=== PATIENT | male | born 1950 | race Caucasian/White ===

== ENCOUNTER → 2017-12-14 09:33 | Outpatient (CLI) | payer OTHER, SELFPAY ==
[2017-12-14 09:59] LABS: Add Manual Diff / Slide Review NO; Basophils Percent Auto 0.5 % (0-2); Eosinophils Percent Auto 1.3 % (2-4); Hematocrit 43.3 % (41-53); Hemoglobin 14.9 g/dL (13.5-17.5); Lymphocytes Percent Auto 25.2 % (25-40); Mean Corpuscular HGB Conc 34.5 % (30-36); Mean Corpuscular Hemoglobin 31.8 PG (26-34); Neutrophils Absolute Auto 3900 /uL (3000-5900); Platelet Count 163 X10^3/uL (150-400); Red Blood Cell Count 4.71 X10^6/uL (4.5-5.9); Red Cell Distribution Width 12.8 % (11.6-14.8); White Blood Cell Count 5.9 X10^3/uL (4.5-11.0)
[2017-12-14 10:28] LABS: Cholesterol 109 mg/dL (140-199); HDL Cholesterol 52 mg/dL (40-60); LDL Cholesterol Calculated 39 mg/dL (<100); Triglycerides 92 mg/dL (35-150)
[2017-12-14 10:45] LABS: Vitamin D 25 Hydroxy (D3) 39.7 ng/mL (30.0-100.0)
== END ==
PROVIDERS: PCP Family Medicine; Visit Provider Family Medicine
DX: F32.9 Major depressive disorder, single episode, unspecified (principal)
CPT/HCPCS: 36415; 80061; 82306; 85025; G0103

== ENCOUNTER → 2018-11-22 08:55 | Outpatient (CLI) | payer OTHER, SELFPAY ==
[2018-11-22 10:19] LABS: Add Manual Diff / Slide Review NO; Basophils Absolute Auto 0 /uL (0-100); Basophils Percent Auto 0.5 % (0-2); Eosinophils Absolute Auto 100 /uL (0-450); Eosinophils Percent Auto 1.6 % (2-4); Hematocrit 45.3 % (41-53); Hemoglobin 14.9 g/dL (13.5-17.5); Lymphocytes Absolute Auto 1600 /uL (1100-4500); Lymphocytes Percent Auto 27.7 % (25-40); Mean Corpuscular HGB Conc 32.9 % (30-36); Mean Corpuscular Hemoglobin 31.1 PG (26-34); Mean Corpuscular Volume 94.5 fL (80-100); Monocytes Absolute Auto 400 /uL (0-900); Monocytes Percent Auto 7.4 % (3-14); Neutrophils Absolute Auto 3600 /uL (1500-7000); Neutrophils Percent Auto 62.8 % (50-75); Platelet Count 177 X10^3/uL (150-400); Red Blood Cell Count 4.79 X10^6/uL (4.5-5.9); Red Cell Distribution Width 13.1 % (11.6-14.8); White Blood Cell Count 5.8 X10^3/uL (4.5-11.0)
[2018-11-22 11:14] LABS: Alanine Aminotransferase 32 IU/L (21-72); Albumin 4.3 g/dL (3.5-5.0); Albumin Globulin Ratio 1.6 (1.0-2.8); Alkaline Phosphatase 64 U/L (38-126); Aspartate Aminotransferase 34 IU/L (17-59); BUN Creatinine Ratio 16.4 (6-22); Bilirubin Total 0.5 mg/dL (0.2-1.3); Blood Urea Nitrogen 18 mg/dL (9-20); Calcium 9.5 mg/dL (8.4-10.2); Carbon Dioxide 27 mmol/L (22-32); Chloride 102 mmol/L (98-107); Cholesterol 115 mg/dL (140-199); Estimated Glomerular Filt Rate > 60.0 mL/min (>60); Globulin 2.7 g/dL (1.7-4.1); Glucose 106 mg/dL (80-110); HDL Cholesterol 45 mg/dL (40-60); HEMOLYSIS 17 (0-50); LDL Cholesterol Calculated 54 mg/dL (<100); Potassium 4.3 mmol/L (3.4-5.1); Sodium 139 mmol/L (137-145); Triglycerides 82 mg/dL (35-150)
[2018-11-22 11:30] LABS: Thyroid Stimulating Hormone 2.02 uIU/mL (0.47-4.68)
[2018-11-22 11:38] LABS: Prostate Specific Antigen Scrn 1.63 ng/mL (0.1-4.0)
== END ==
PROVIDERS: PCP Family Medicine; Visit Provider Family Medicine
DX: Z01.89 Encounter for other specified special examinations (principal); Z13.220 Encounter for screening for lipoid disorders; Z13.29 Encounter for screening for other suspected endocrine disorder; Z13.6 Encounter for screening for cardiovascular disorders
CPT/HCPCS: 36415; 80053; 80061; 84443; 85025; G0103

== ENCOUNTER → 2018-11-22 09:03 | Outpatient (CLI) | payer OTHER, SELFPAY | PROVIDERS: PCP Family Medicine; Visit Provider Family Medicine ==

== ENCOUNTER 2019-03-16 02:56 | Emergency (ER) | payer OTHER, SELFPAY ==
[2019-03-16 03:04] VITALS: BP 154/87; PULSE 74; RESP 16; TEMP 36.7; O2SAT 97; BMI 26.4
--- NOTE | 2019-03-16 03:47 | ED.EAR ---
HPI - Ear Problem General Chief complaint: Ear Stated complaint: part of hearing air stuck in left ear Time Seen by Provider: 03/16/19 03:10 Source: patient Mode of arrival: ambulatory Limitations: no limitations History of Present Illness HPI Narrative: Patient is a 68-year-old male who presents with foreign body in his left ear. He states that part of his hearing aid is in his left ear he thinks it has been there for the past couple of days. He and his daughter tried to get it out previously but were unsuccessful. Pain kept him up this evening unable to sleep. Complaint: ear pain Location: left ear Duration: constant Severity: moderate Relieving factors: nothing Exacerbating factors: nothing Related Data Previous Rx's Medication Instructions Recorded omeprazole 20 mg PO Q DAY #90 cap 06/14/18 ranitidine HCl [Zantac] 150 mg PO QDAY #90 tab 10/24/18 azithromycin 250 mg tablet See Rx Instructions PO .COMPLEX #6 03/09/19 tab Allergies Allergy/AdvReac Type Severity Reaction Status Date / Time codeine [CODEINE] Allergy Unknown Verified 03/09/19 15:46 Review of Systems Review of Systems Narrative: GENERAL: Denies chills,fever HEENT:+ left ear pain Denies throat pain RESPIRATORY: Denies dyspnea, cough, wheezing CARDIOVASCULAR: Denies chest pain, palpitations GASTROINTESTINAL: Denies nausea, vomiting MUSCULOSKELETAL: Denies extremity pain, injury SKIN: No rash, no laceration, no pruritus NEUROLOGIC: Denies weakness, dizziness, headache, numbness 8 point review of systems is negative except for those stated above and HPI PFSH Medical History Anxiety (Chronic) BPH (benign prostatic hyperplasia) (Chronic ~1999) GERD (gastroesophageal reflux disease) (Chronic ~1994) Headache (Chronic) 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 Grandmother No problems noted. Sister No problems noted. Family/Other No problems noted. Social History Smoking Status: Never smoker Family History Mother Age: 94 Dementia Grandmother Glaucoma Father No problems noted. Grandmother No problems noted. Sister No problems noted. Family/Other No problems noted. Social History Smoking Status: Never smoker Exam Initial Vital Signs Initial Vital Signs: Vital Signs Temperature 98.0 F 03/16/19 03:04 Pulse Rate 74 03/16/19 03:04 Respiratory Rate 16 03/16/19 03:04 Blood Pressure 154/87 H 03/16/19 03:04 Pulse Oximetry 97 03/16/19 03:04 GENERAL: Well-appearing, well-nourished and in no acute distress. CARDIOVASCULAR: peripheral pulses in tact, cap refill <2 sec RESPIRATORY: No respiratory distress, speaks in full sentences without difficulty EXTREMITIES: Normal range of motion, no clubbing or edema. Neurovascularly intact NEUROLOGICAL: Cranial nerves II through XII grossly intact. Normal gait and speech. SKIN: Warm, dry, no petechiae, no rashes or lesions. HENMT Ears: hearing grossly impaired and other (Foreign body noted in the left ear mild blood also noted) Procedures Foreign Body EAR Location: ear canal (L) Foreign Body Suspected: other (Part of hearing aid) TM intact pre-procedure: unable to visualize Foreign Body Removed: yes Foreign Body Removal Technique: forceps Tympanic Membrane Intact Post Procedure: Yes Patient Tolerated Procedure: Well Complications: none Course Vital Signs Vital signs: Vital Signs - 8 hr 03/16/19 03:04 Temperature 98.0 F Pulse Rate 74 Respiratory Rate 16 Blood Pressure 154/87 H Pulse Oximetry 97 Discharge Plan Departure Patient Disposition: Home Clinical Impression: Acute foreign body of left ear Qualifiers: Encounter type: initial encounter Qualified Code(s): T16.2XXA - Foreign body in left ear, initial encounter Instructions: DI for Removal of Foreign Body From Ear Activity Restrictions/Additional Instructions: *You have been diagnosed with foreign body of left ear rib *What to do: I recommend not putting anything in the ear for 1-2 days until ear has healed at this time no need for antibiotics are is no infection *Continue to take medications as directed *Follow up with your primary care provider in 2-3 days *Return to ER if you should have increasing pain and drainage or any new, worsening or concerning symptoms Prescriptions: No Action omeprazole 20 mg capsule,delayed release(DR/EC) 20 mg PO Q DAY Qty: 90 RF: 3 ranitidine HCl [Zantac] 150 mg tablet 150 mg PO QDAY Qty: 90 RF: 2 azithromycin [Zithromax] 250 mg tablet See Rx Instructions PO .COMPLEX Qty: 6 RF: 0 Referrals: Arnulfo Price MD [Primary Care Provider] -
--- NOTE | 2019-03-16 04:23 | PC.NURSE ---
Dr. Zuniga removed foreign body. Pt tolerated well.
== END 2019-03-16 03:55 | disposition home or self-care (01) ==
PROVIDERS: Emergency Provider Emergency Medicine; PCP Family Medicine
DX: T16.2XXA Foreign body in left ear, initial encounter (principal)
CPT/HCPCS: 69200; 99282

== ENCOUNTER 2019-04-25 07:41 | Day surgery (SDC) | payer OTHER, SELFPAY ==
--- NOTE | 2019-04-25 | PATH_ITS ---
[facility] Accession Number: [id number] . 01 Material submitted: . colon - ASCENDING COLON POLYP . 02 Diagnosis: Ascending Colon, Polyp: Tubular adenoma. MRV 04/26/2019 1132 Local . 02 Electronically signed: . Rajiv Badillo MD, PhD, Pathologist NPI- [id number] . 01 Gross description: . ASCENDING COLON POLYP: Received in formalin are 2 fragment(s) of brown, soft tissue measuring 0.1 x 0.1 x 0.1 cm to 0.2 x 0.2 x 0.2 cm which is entirely submitted and submitted entirely in 1 cassette(s) /[facility] 04/25/2019 1939 Local . 02 Pathologist provided ICD-10: D12.2 . 02 CPT . 171742 Performed at: 01 [facility] [address] [id number] MD Waylon Fine MD Phone: [phone] Performed at: [facility] [address] [place], [place] [id number] MD Samira Hernandez MD Phone: [phone]
[2019-04-25 08:08] VITALS: BMI 24.5
[2019-04-25 08:13] VITALS: BP 125/78; PULSE 84; RESP 15; TEMP 36.3; O2SAT 96
[2019-04-25] MEDS: SODIUM CHLORIDE 0.9% 1,000 ML 200 ML IV (08:23)
--- NOTE | 2019-04-25 08:53 | PM.HP.1 ---
History of Present Illness History of Present Illness Date Patient Seen: 04/25/19 Time Patient Seen: 08:53 Chief complaint: [id number] Narrative: The patient is a gentleman who is here for screening colonoscopy. Last exam was about 10 years ago. No family history of colon cancer. 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 Grandmother No problems noted. Sister No problems noted. Family/Other No problems noted. Social History household members: spouse Smoking Status: Never smoker Family & Social History Family History Mother Age: 94 Dementia Grandmother Glaucoma Father No problems noted. Grandmother No problems noted. Sister No problems noted. Family/Other No problems noted. Social History: household members spouse Tobacco & Substance use: Smoking Status Never smoker alcohol intake frequency holiday/special occasion Substance Use Type does not use Meds Home Medications and Allergies Home Medications Medication Instructions Recorded Confirmed Type omeprazole 20 mg capsule,delayed 20 mg PO DAILY #90 cap 04/24/19 04/25/19 Rx release dextroamphetamine-amphetamine 5 mg PO DAILY 04/25/19 04/25/19 History [Adderall XR] famotidine 20 mg PO BEDTIME 04/25/19 04/25/19 History Allergies Allergy/AdvReac Type Severity Reaction Status Date / Time codeine [CODEINE] AdvReac Unknown groggy Verified 04/25/19 08:04 Review of Systems Review of Systems ROS Unobtainable: All systems reviewed & are unremarkable except as noted in HPI and below Gastrointestinal Comments: Chronic reflux disease Exam Vital Signs (past 8 hours): - 04/25/19 08:13 Temperature 97.4 F L Pulse Rate 84 Respiratory Rate 15 Blood Pressure 125/78 Pulse Oximetry 96 Oxygen Delivery Method Room Air Narrative Exam Narrative: Pleasant cooperative patient no apparent distress. Lungs are clear to auscultation. No rales or rhonchi. Heart regular rate and rhythm no murmur gallop. Abdomen is soft nontender without mass. No obvious hernias. Patient is alert and oriented x3. Assessment & Plan Assessment & Plan narrative: The patient for a screening colonoscopy. I have discussed the procedure with them. Risks of bleeding, perforation which would necessitate major operation, failure to find remove all lesions, the potential tattoo were all discussed. All questions were answered. They wished to proceed.
--- NOTE | 2019-04-25 08:57 | PM.PREOP ---
Pre-operative Note Interval Note History & Physical reviewed/Exam performed by Physician: Yes Changes to H&P: No ASA Class (for procedural sedation): I
[2019-04-25] MEDS: ONDANSETRON 4 MG/2 ML INJ IV (09:08)
--- NOTE | 2019-04-25 09:38 | PM.OP.ENDO ---
Operative Date/Time/Diagnoses Date of procedure: 04/25/19 Time of procedure: 09:38 Pre-op diagnosis: Screening exam Post-op diagnosis: same (Same. Polyp in the ascending colon) Procedure & Clinicians Study performed: Colonoscopy with cold biopsy Same procedure as scheduled: Yes Indications: Screening. Last colonoscopy 10 years ago. Surgeon: Jose R Mariano Procedure Notes SCOAP/Timeout: Performed Procedure in detail: The patient was placed in the left lateral decubitus position and underwent IV sedation directed by the surgeon consisting of fentanyl and Versed. Digital exam was remarkable for an enlarged prostate. The scope was inserted and advanced through the rectum into the sigmoid, descending, transverse, and ascending colon. The patient's colon was quite tortuous. No lesions were seen however.. The cecum was reached identified by the ileocecal valve and the appendiceal opening. The scope was gradually brought out. One Polyp was found at the ascending colon. It was small and appeared to be completely removed with biopsy forceps.. The scope ultimately was retroflexed in the rectum. The appearance was normal. The scope was removed and the patient tolerated the procedure well. The prep was good. Scope withdrawal time: 10 minutes Sedation minutes: 35 Findings: polyp (Ascending colon) Specimen(s): other (Polyp) Complications: none Post-procedure Recommendations: Colonscopy in 5 years (If the biopsy is not adenomatous 10 years would be more appropriate) Follow up: as needed Disposition: PACU
[2019-04-25] MEDS: MIDAZOLAM 5 MG/5 ML VIAL IV (09:39)
[2019-04-25] MEDS: fentaNYL 250 MCG/5 ML INJ IV (09:40)
[2019-04-25 09:43] VITALS: BP 117/79; PULSE 78; RESP 15; TEMP 36.3; O2SAT 99
[2019-04-25 09:48] VITALS: BP 132/75; PULSE 87; RESP 17; O2SAT 99
[2019-04-25 09:51] VITALS: BP 132/82; PULSE 84; RESP 16; TEMP 36.1; O2SAT 98
== END 2019-04-25 10:07 | disposition home or self-care (01) ==
PROVIDERS: Family Provider Family Medicine; PCP Family Medicine; Visit Provider Specialist
PROC: 0DJD8ZZ Inspection of Lower Intestinal Tract, Via Natural or Artificial Opening Endoscopic (ICD-10-PCS; CPT 45378; principal; 2019-04-25 08:45)
DX: Z12.11 Encounter for screening for malignant neoplasm of colon (principal); F41.9 Anxiety disorder, unspecified; D12.2 Benign neoplasm of ascending colon
CPT/HCPCS: 45380; 99152; 99153; J2250; J2405; J3010

== ENCOUNTER → 2019-08-16 16:12 | Outpatient (CLI) | payer OTHER, SELFPAY | PROVIDERS: PCP Family Medicine; Visit Provider Family Medicine | DX: R03.0 Elevated blood-pressure reading, without diagnosis of hypertension (principal) | CPT/HCPCS: 93005 ==

== ENCOUNTER → 2020-04-22 09:54 | Outpatient (CLI) | payer MEDICARE, OTHER, SELFPAY ==
[2020-04-22 10:28] LABS: Add Manual Diff / Slide Review NO; Basophils Absolute Auto 0 /uL (0-100); Basophils Percent Auto 0.3 % (0-2); Eosinophils Absolute Auto 100 /uL (0-450); Hematocrit 42.4 % (41-53); Hemoglobin 14.6 g/dL (13.5-17.5); Lymphocytes Absolute Auto 1400 /uL (1100-4500); Lymphocytes Percent Auto 22.9 % (25-40); Mean Corpuscular HGB Conc 34.3 % (30-36); Mean Corpuscular Hemoglobin 31.6 PG (26-34); Mean Corpuscular Volume 92.2 fL (80-100); Monocytes Absolute Auto 400 /uL (0-900); Monocytes Percent Auto 7.1 % (3-14); Neutrophils Absolute Auto 4200 /uL (1500-7000); Neutrophils Percent Auto 68.7 % (50-75); Platelet Count 164 X10^3/uL (150-400); White Blood Cell Count 6.1 X10^3/uL (4.5-11.0)
[2020-04-22 10:38] LABS: Alanine Aminotransferase 40 IU/L (<50); Albumin 4.1 g/dL (3.5-5.0); Albumin Globulin Ratio 1.6 (1.0-2.8); Alkaline Phosphatase 57 U/L (38-126); Aspartate Aminotransferase 39 IU/L (17-59); BUN Creatinine Ratio 16.2 (6-22); Bilirubin Total 0.4 mg/dL (0.2-1.3); Blood Urea Nitrogen 16 mg/dL (9-20); Calcium 9.4 mg/dL (8.4-10.2); Carbon Dioxide 32 mmol/L (22-32); Chloride 103 mmol/L (98-107); Cholesterol 100 mg/dL (140-199); Estimated Glomerular Filt Rate > 60.0 mL/min (>60); Globulin 2.6 g/dL (1.7-4.1); Glucose 106 mg/dL (80-110); HDL Cholesterol 41 mg/dL (40-60); HEMOLYSIS < 15 (0-50); LDL Cholesterol Calculated 42 mg/dL (<100); Potassium 4.5 mmol/L (3.4-5.1); Sodium 139 mmol/L (137-145); Total Protein 6.7 g/dL (6.3-8.2); Triglycerides 83 mg/dL (35-150)
[2020-04-22 11:07] LABS: Prostate Specific Antigen Scrn 1.73 ng/mL (0.1-4.0)
== END ==
PROVIDERS: PCP Family Medicine; Referring Provider Family Medicine; Visit Provider Family Medicine
DX: G47.33 Obstructive sleep apnea (adult) (pediatric) (principal); Z12.5 Encounter for screening for malignant neoplasm of prostate
CPT/HCPCS: 36415; 80053; 80061; 85025; G0103

== ENCOUNTER → 2020-07-26 10:40 | Outpatient (CLI) | payer MEDICARE, OTHER, SELFPAY ==
[2020-07-26] MEDS: COVID-19 VACC(MODERNA-1)/PF 100 MCG/0.5 ML VIAL IM (10:46)
== END ==
PROVIDERS: PCP Family Medicine; Visit Provider Internal Medicine
DX: Z23 Encounter for immunization (principal)
CPT/HCPCS: 0011A; 91301

== ENCOUNTER → 2020-08-22 10:27 | Outpatient (CLI) | payer MEDICARE, OTHER, SELFPAY ==
[2020-08-22] MEDS: COVID-19 VACC #2, MRNA(MOD) 100 MCG/0.5 ML VIAL IM (10:30)
== END ==
PROVIDERS: PCP Family Medicine; Visit Provider Internal Medicine
DX: Z23 Encounter for immunization (principal)
CPT/HCPCS: 0012A; 91301

== ENCOUNTER → 2021-05-08 09:23 | Outpatient (CLI) | payer MEDICARE, OTHER, SELFPAY ==
[2021-05-08 10:40] LABS: Appearance Urine UA CLEAR; Bilirubin Urine UA NEGATIVE (NEGATIVE); Color Urine UA YELLOW; Glucose Urine UA NEGATIVE (Negative); Ketones Urine UA NEGATIVE (NEGATIVE); Leukocyte Esterase Urine UA NEGATIVE (NEGATIVE); Nitrite Urine UA NEGATIVE (Negative); Occult Blood Urine UA TRACE-LYSED (Negative); Protein Urine UA NEGATIVE (Negative); Specific Gravity Urine UA <=1.005 (1.000-1.035); Urobilinogen Urine UA 0.2 E.U./dL (0.2); pH Urine UA 6.5 (4.5-8.0)
[2021-05-08 10:45] LABS: Add Manual Diff / Slide Review NO; Basophils Absolute Auto 0 /uL (0-100); Basophils Percent Auto 0.6 % (0-2); Eosinophils Absolute Auto 0 /uL (0-450); Eosinophils Percent Auto 0.4 % (2-4); Hematocrit 44.6 % (41-53); Hemoglobin 15.1 g/dL (13.5-17.5); Lymphocytes Absolute Auto 1300 /uL (1100-4500); Lymphocytes Percent Auto 18.3 % (25-40); Mean Corpuscular HGB Conc 33.8 % (30-36); Mean Corpuscular Hemoglobin 31.1 PG (26-34); Mean Corpuscular Volume 92.3 fL (80-100); Monocytes Absolute Auto 500 /uL (0-900); Monocytes Percent Auto 7.2 % (3-14); Neutrophils Absolute Auto 5100 /uL (1500-7000); Neutrophils Percent Auto 73.5 % (50-75); Platelet Count 179 X10^3/uL (150-400); Red Blood Cell Count 4.84 X10^6/uL (4.5-5.9); White Blood Cell Count 6.9 X10^3/uL (4.5-11.0)
[2021-05-08 10:59] LABS: Amorphous Sediment Urine 2+; Bacteria Urine None Seen; Culture Indicated Urine Cult Not Indicated; RBC Urine 1-5/HPF (0-5/HPF); WBC Urine None Seen (0-5/HPF)
[2021-05-08 11:04] LABS: Alanine Aminotransferase 26 IU/L (<50); Albumin 4.5 g/dL (3.5-5.0); Alkaline Phosphatase 56 U/L (38-126); Aspartate Aminotransferase 31 IU/L (17-59); BUN Creatinine Ratio 13.5 (6-22); Bilirubin Total 0.5 mg/dL (0.2-1.3); Blood Urea Nitrogen 13 mg/dL (9-20); Calcium 10.1 mg/dL (8.4-10.2); Carbon Dioxide 29 mmol/L (22-32); Chloride 101 mmol/L (98-107); Cholesterol 109 mg/dL (140-199); Estimated Glomerular Filt Rate > 60.0 mL/min (>60); Globulin 2.2 g/dL (1.7-4.1); Glucose 92 mg/dL (80-110); HDL Cholesterol 44 mg/dL (40-60); HEMOLYSIS 20 (0-50); LDL Cholesterol Calculated 49 mg/dL (<100); Potassium 4.3 mmol/L (3.4-5.1); Sodium 138 mmol/L (137-145); Total Protein 6.7 g/dL (6.3-8.2); Triglycerides 80 mg/dL (35-150)
[2021-05-08 11:34] LABS: TSH w/ Reflex to FT4 1.97 uIU/mL (0.47-4.68)
[2021-05-08 11:35] LABS: Prostate Specific Antigen Scrn 1.83 ng/mL (0.1-4.0)
[2021-05-08 11:54] LABS: Vitamin B12 Reflex MMA if <400 608 pg/mL (239-931)
== END ==
PROVIDERS: PCP Family Medicine; Referring Provider Family Medicine; Visit Provider Family Medicine
DX: G47.33 Obstructive sleep apnea (adult) (pediatric) (principal); F41.9 Anxiety disorder, unspecified; F90.9 Attention-deficit hyperactivity disorder, unspecified type; R41.3 Other amnesia; R45.1 Restlessness and agitation; Z12.5 Encounter for screening for malignant neoplasm of prostate; E78.6 Lipoprotein deficiency
CPT/HCPCS: 36415; 80053; 80061; 81001; 82607; 84443; 85025; G0103

== ENCOUNTER → 2021-05-12 07:39 | Outpatient (CLI) | payer MEDICARE, OTHER, SELFPAY ==
--- NOTE | 2021-05-12 07:42 | DI.MRI.S_ITS ---
PROCEDURE: MR HEAD/BRAIN WO CON INDICATIONS: memory loss, personality change TECHNIQUE: Non-contrast axial T1 spin echo, axial T2 fast spin echo, sagittal and axial FLAIR, coronal T2 fast spin echo, axial gradient echo, axial diffusion and ADC through the brain. COMPARISON: None. FINDINGS: Image quality: Diagnostic, with note made of motion artifact. CSF spaces: Ventricles appear symmetric in size and shape. Basal cisterns are patent. No extra-axial fluid collections. Brain: No intracranial bleeds or mass effects. There is cerebral volume loss for age. There are periventricular and deep white matter chronic small vessel ischemic changes. Brainstem appears normal. Diffusion-weighted images show no acute ischemic insults. No chronic ischemic insults. Normal intravascular flow voids are present. Skull and face: Calvarial bone marrow is normal in signal. Orbits are normal. Sinuses: Small mucous retention cysts are seen within the maxillary sinuses. Sinuses and mastoids are otherwise clear. IMPRESSION: No focal abnormality is seen. No acute intracranial process is seen. No findings of acute or subacute infarction can be seen. No significant remote infarcts are seen. Note is made of age-appropriate brain parenchymal volume loss and chronic small vessel ischemic changes. Dictated by: Santino Young M.D. on 05/12/2021 at 9:20 Approved by: Santino Young M.D. on 05/12/2021 at 9:22
== END ==
PROVIDERS: PCP Family Medicine; Referring Provider Family Medicine; Visit Provider Family Medicine
DX: R41.3 Other amnesia (principal); F41.9 Anxiety disorder, unspecified; R45.1 Restlessness and agitation
CPT/HCPCS: 70551

== ENCOUNTER → 2021-07-09 08:01 | Outpatient (CLI) | payer MEDICARE, OTHER, SELFPAY ==
[2021-07-09 09:27] LABS: Alanine Aminotransferase 35 IU/L (<50); Albumin Globulin Ratio 1.7 (1.0-2.8); Alkaline Phosphatase 55 U/L (38-126); Aspartate Aminotransferase 31 IU/L (17-59); BUN Creatinine Ratio 15.9 (6-22); Bilirubin Total 0.5 mg/dL (0.2-1.3); Blood Urea Nitrogen 18 mg/dL (9-20); Calcium 9.9 mg/dL (8.4-10.2); Carbon Dioxide 30 mmol/L (22-32); Chloride 104 mmol/L (98-107); Cholesterol 109 mg/dL (140-199); Estimated Glomerular Filt Rate > 60.0 mL/min (>60); Globulin 2.3 g/dL (1.7-4.1); Glucose 118 mg/dL (80-110); HDL Cholesterol 44 mg/dL (40-60); HEMOLYSIS < 15 (0-50); LDL Cholesterol Calculated 49 mg/dL (<100); Potassium 4.2 mmol/L (3.4-5.1); Sodium 138 mmol/L (137-145); Total Protein 6.3 g/dL (6.3-8.2); Triglycerides 80 mg/dL (35-150)
== END ==
PROVIDERS: PCP Family Medicine; Referring Provider Family Medicine; Visit Provider Family Medicine
DX: E78.6 Lipoprotein deficiency (principal); E86.9 Volume depletion, unspecified; F90.9 Attention-deficit hyperactivity disorder, unspecified type; G47.33 Obstructive sleep apnea (adult) (pediatric); F41.9 Anxiety disorder, unspecified; E78.5 Hyperlipidemia, unspecified
CPT/HCPCS: 36415; 80053; 80061

== ENCOUNTER → 2021-08-25 12:49 | Outpatient (CLI) | payer MEDICARE, OTHER, SELFPAY ==
[2021-08-25 15:03] LABS: BUN Creatinine Ratio 11.1 (6-22); Blood Urea Nitrogen 12 mg/dL (9-20); Calcium 9.9 mg/dL (8.4-10.2); Carbon Dioxide 31 mmol/L (22-32); Chloride 103 mmol/L (98-107); Estimated Glomerular Filt Rate > 60.0 mL/min (>60); Glucose 105 mg/dL (80-110); HEMOLYSIS < 15 (0-50); Potassium 4.1 mmol/L (3.4-5.1); Sodium 141 mmol/L (137-145)
== END ==
PROVIDERS: Psychiatry & Neurology Psychiatry; PCP Family Medicine; Referring Provider Family Medicine; Visit Provider Family Medicine
DX: Z79.899 Other long term (current) drug therapy (principal)
CPT/HCPCS: 36415; 80048; 93005; 93010

== ENCOUNTER → 2022-07-15 15:23 | Outpatient (CLI) | payer MEDICARE, OTHER, SELFPAY ==
[2022-07-15 16:59] LABS: Influenza A - CEPHEID Flu A POSITIVE (NEGATIVE); Influenza B - CEPHEID Flu B NEGATIVE (NEGATIVE); Respiratory Syncytial Virus Negative (Negative)
[2022-07-15 17:03] LABS: COVID-19 CEPHEID 4-PLEX PCR Negative (Negative)
== END ==
PROVIDERS: PCP Family Medicine; Visit Provider Family Medicine
DX: R05.1 Acute cough (principal); Z20.828 Contact with and (suspected) exposure to other viral communicable diseases
CPT/HCPCS: 0241U

== ENCOUNTER → 2022-08-13 10:01 | Outpatient (CLI) | payer MEDICARE, OTHER, SELFPAY ==
--- NOTE | 2022-08-13 10:02 | DI.RAD.S_ITS ---
PROCEDURE: XR CHEST 2V INDICATIONS: chronic cough TECHNIQUE: 2 views of the chest were acquired. COMPARISON: [facility], , CHEST 2 VIEW, 03/20/2016, 11:08. FINDINGS: Surgical changes and devices: None. Lungs and pleura: Lungs are clear. No pleural effusions or pneumothorax. Mediastinum: Mediastinal contours are normal. Heart size is normal. Bones and chest wall: No suspicious bony abnormalities. Soft tissues appear unremarkable. IMPRESSION: No acute cardiopulmonary process demonstrated radiographically. Dictated by: Kalia Smith M.D. on 08/13/2022 at 14:33 Approved by: Kalia Smiht M.D. on 08/13/2022 at 14:33
[2022-08-13 11:15] LABS: Add Manual Diff / Slide Review NO; Basophils Absolute Auto 0 /uL (0-100); Basophils Percent Auto 0.7 % (0-2); Eosinophils Absolute Auto 100 /uL (0-450); Eosinophils Percent Auto 1.4 % (2-4); Hematocrit 42.8 % (41-53); Hemoglobin 14.4 g/dL (13.5-17.5); Lymphocytes Absolute Auto 1500 /uL (1100-4500); Lymphocytes Percent Auto 25.3 % (25-40); Mean Corpuscular HGB Conc 33.7 % (30-36); Monocytes Absolute Auto 400 /uL (0-900); Monocytes Percent Auto 6.4 % (3-14); Neutrophils Absolute Auto 3900 /uL (1500-7000); Neutrophils Percent Auto 66.2 % (50-75); Platelet Count 172 X10^3/uL (150-400); Red Blood Cell Count 4.65 X10^6/uL (4.5-5.9); Red Cell Distribution Width 13.9 % (11.6-14.8); White Blood Cell Count 5.9 X10^3/uL (4.5-11.0)
[2022-08-13 11:29] LABS: Alanine Aminotransferase 24 IU/L (<50); Albumin 4.2 g/dL (3.5-5.0); Albumin Globulin Ratio 1.4 (1.0-2.8); Alkaline Phosphatase 58 U/L (38-126); Aspartate Aminotransferase 29 IU/L (17-59); BUN Creatinine Ratio 15.1 (6-22); Bilirubin Total 0.5 mg/dL (0.2-1.3); Blood Urea Nitrogen 14 mg/dL (9-20); Calcium 9.2 mg/dL (8.4-10.2); Carbon Dioxide 29 mmol/L (22-32); Chloride 102 mmol/L (98-107); Cholesterol 110 mg/dL (140-199); Estimated Glomerular Filt Rate > 60 mL/min (>60); Globulin 2.9 g/dL (1.7-4.1); Glucose 100 mg/dL (80-110); HDL Cholesterol 39 mg/dL (40-60); HEMOLYSIS 20 (0-50); LDL Cholesterol Calculated 48 mg/dL (<100); Sodium 139 mmol/L (137-145); Total Protein 7.1 g/dL (6.3-8.2); Triglycerides 115 mg/dL (35-150)
[2022-08-13 11:59] LABS: Prostate Specific Antigen Scrn 2.22 ng/mL (0.1-4.0)
[2022-08-13 12:01] LABS: TSH w/ Reflex to FT4 2.35 uIU/mL (0.47-4.68)
== END ==
PROVIDERS: PCP Family Medicine; Referring Provider Family Medicine; Visit Provider Family Medicine
DX: R05.3 Chronic cough (principal); Z12.5 Encounter for screening for malignant neoplasm of prostate; F41.9 Anxiety disorder, unspecified; F90.9 Attention-deficit hyperactivity disorder, unspecified type; R73.9 Hyperglycemia, unspecified; Z00.00 Encounter for general adult medical examination without abnormal findings
CPT/HCPCS: 36415; 71046; 80053; 80061; 84443; 85025; G0103

== ENCOUNTER → 2022-10-12 17:00 | Outpatient (CLI) | payer MEDICARE, OTHER, SELFPAY | PROVIDERS: PCP Family Medicine; Visit Provider Nurse Practitioner Family | DX: M54.9 Dorsalgia, unspecified (principal) | CPT/HCPCS: 87086 ==

== ENCOUNTER 2022-10-14 10:49 | Emergency (ER) | payer MEDICARE, OTHER, SELFPAY ==
[2022-10-14 11:18] VITALS: BP 164/84; PULSE 100; RESP 16; TEMP 36.9; O2SAT 98; BMI 23.7
[2022-10-14] MEDS: LIDOCAINE PATCH 1 EACH ADH..PATCH TOP (12:56)
[2022-10-14] MEDS: methocarbamoL 500 MG TABLET 750 MG PO (12:56)
[2022-10-14] MEDS: HYDROCODONE/ACET 5/325 TABLET 1 TAB PO (12:56)
[2022-10-14] MEDS: KETOROLAC 30 MG/ML VIAL 15 MG IM (12:56)
--- NOTE | 2022-10-14 13:29 | ED_ITS ---
HPI - Extremity Problem <Samira Rice, [facility] - Last Filed: 10/14/22 14:34> General Chief complaint: Extremity Problem,Nontraumatic Stated complaint: LT hip lower leg pain getting worse Time Seen by Provider: 10/14/22 12:10 Source: patient and family Mode of arrival: Wheelchair History of Present Illness HPI Narrative: This is a 71-year-old gentleman who presents to the emergency department 2 days after he received the 3rd COVID booster vaccine saying he has intractable right- sided lumbar muscle spasms and muscular tenderness that has been getting worse and he has tried Tylenol, ibuprofen Flexeril, and states that none of these have helped enough. He has seen his primary care provider, went to the walk-in clinic, and now presents emergency department for pain control. He states that he is never had pain like this before it does not radiate, denies history of kidney stones or urinary retention, denies any recent trauma, denies any numbness, tingling, weakness, Related Data Home Medications Medication Instructions Recorded Confirmed methylphenidate HCl 20 mg 20 mg PO BID 07/15/22 10/12/22 capsule,delayed release,ext release sprinkle Previous Rx's Medication Instructions Recorded famotidine 10 mg tablet 10 mg PO BEDTIME #90 tabs 07/27/22 omeprazole 20 mg capsule,delayed See Rx Instructions .Route 10/09/22 release .COMPLEX #90 caps cyclobenzaprine 5 mg tablet 5 mg PO TID PRN muscle spasm #20 10/12/22 tabs ketorolac 10 mg tablet 10 mg PO Q8H PRN pain #20 tabs 10/14/22 lidocaine 5 % topical patch 1 patch topical DAILY #15 ea 10/14/22 (Lidoderm) lidocaine 5 % topical patch 1 patch topical DAILY PRN pain #15 10/14/22 (Lidoderm) ea methocarbamol 750 mg tablet 750 mg PO Q8H PRN muscle spasm #30 10/14/22 tabs omeprazole 20 mg capsule,delayed 20 mg PO DAILY #10 caps 10/14/22 release oxycodone-acetaminophen 5 mg-325 1 tab PO Q8H PRN pain #20 tabs 10/14/22 mg tablet (Percocet) Allergies Allergy/AdvReac Type Severity Reaction Status Date / Time codeine [CODEINE] AdvReac Unknown groggy Verified 10/12/22 16:49 <Tami Quiles DO - Last Filed: 10/14/22 18:40> History of Present Illness HPI Narrative: This is a 71-year-old gentleman who presents to the emergency department 2 days after he received the 3rd COVID booster vaccine saying he has intractable right- sided lumbar muscle spasms and muscular tenderness that has been getting worse and he has tried Tylenol, ibuprofen Flexeril, and states that none of these have helped enough. He has seen his primary care provider, went to the walk-in clinic, and now presents emergency department for pain control. He states that he is never had pain like this before it does not radiate, denies history of kidney stones or urinary retention, denies any recent trauma, denies any numbness, tingling, weakness, Review of Systems <ANNAMARIE Trinidad - Last Filed: 10/14/22 14:34> Review of Systems ROS Unobtainable: All systems reviewed & are unremarkable except as noted in HPI and below Patient History <ANNAMARIE Trinidad - Last Filed: 10/14/22 14:34> Medical History Anxiety BPH (benign prostatic hyperplasia) (~1999) Central sleep apnea GERD (gastroesophageal reflux disease) (~1994) Headache Hearing loss associated with syndrome of both ears Hyperglycemia Lyme disease (~1994) Tinnitus (~1999) Surgical History Anesthesia History of tonsillectomy Inguinal hernia (~1994) Family History Mother Age: 97 Dementia Grandmother Glaucoma Father No problems noted. Grandmother No problems noted. Sister No problems noted. Family/Other No problems noted. Social History household members: spouse Smoking Status: Never smoker Smoking Status: Never smoker alcohol intake frequency: holidays/special occasions only Substance Use Type: does not use Exam <ANNAMARIE Trinidad - Last Filed: 10/14/22 14:34> Narrative Exam Narrative: Reviewed vitals signs and nursing notes. General: cooperative, acutely in distress and fidgeting due to pain, well groomed HEENT: symmetrical facial expressions, moist mucous membranes, neck is supple CV: regular rate and rhythm, warm extremities Respiratory: Without abnormal breath sounds, normal work of breathing, without tachypnea, hypoxia. GI: abdomen soft, nontender to palpation in all quadrants, nondistended, without masses, rebound tenderness or CVA tenderness bilaterally. MSK: moves all extremities, neurovascularly intact, no weakness, normal tone, no tenderness over lumbar spine, paraspinal musculature on the right low back is tender to palpation and tense. Patient has been having muscle spasms. Skin: brisk capillary refill, without rash or wound Neuro: normal speech and cognition, A&O x3, ambulatory with steady gait, clear speech Initial Vital Signs Initial Vital Signs: Vital Signs Temperature 98.5 F 10/14/22 11:18 Pulse Rate 100 H 10/14/22 11:18 Respiratory Rate 16 10/14/22 11:18 Blood Pressure 164/84 H 10/14/22 11:18 Pulse Oximetry 98 10/14/22 11:18 Oxygen Delivery Method Room Air 10/14/22 11:18 <Tami Quiles DO - Last Filed: 10/14/22 18:40> Initial Vital Signs Initial Vital Signs: Vital Signs Temperature 98.5 F 10/14/22 11:18 Pulse Rate 100 H 10/14/22 11:18 Respiratory Rate 16 10/14/22 11:18 Blood Pressure 164/84 H 10/14/22 11:18 Pulse Oximetry 98 10/14/22 11:18 Oxygen Delivery Method Room Air 10/14/22 11:18 Course <ANNAMARIE Trinidad - Last Filed: 10/14/22 14:34> Orders Ordered: Discontinued Medications Hydrocodone Bitart/Acetaminophen (Hydrocodone/Acet 5/325 Tablet) 1 tab PO NOW ONE Stop: 10/14/22 12:47 Last Admin: 10/14/22 12:56 Dose: 1 tab Documented By: BRAULIO Ketorolac Tromethamine (Ketorolac 30 Mg/Ml Vial) 15 mg IM NOW ONE Stop: 10/14/22 12:47 Last Admin: 10/14/22 12:56 Dose: 15 mg Documented By: BRAULIO Lidocaine (Lidocaine Patch 1 Each Adh..Patch) 1 each TOP NOW ONE Stop: 10/14/22 12:47 Last Admin: 10/14/22 12:56 Dose: 1 each Documented By: BRAULIO Methocarbamol (Methocarbamol 500 Mg Tablet) 750 mg PO NOW ONE Stop: 10/14/22 12:47 Last Admin: 10/14/22 12:56 Dose: 750 mg Documented By: BRAULIO Vital Signs Vital signs: Vital Signs - 8 hr 10/14/22 11:18 Temperature 98.5 F Pulse Rate 100 H Respiratory Rate 16 Blood Pressure 164/84 H Pulse Oximetry 98 Oxygen Delivery Method Room Air <Tami Quiles DO - Last Filed: 10/14/22 18:40> Orders Ordered: Discontinued Medications Hydrocodone Bitart/Acetaminophen (Hydrocodone/Acet 5/325 Tablet) 1 tab PO NOW ONE Stop: 10/14/22 12:47 Last Admin: 10/14/22 12:56 Dose: 1 tab Documented By: BRAULIO Ketorolac Tromethamine (Ketorolac 30 Mg/Ml Vial) 15 mg IM NOW ONE Stop: 10/14/22 12:47 Last Admin: 10/14/22 12:56 Dose: 15 mg Documented By: BRAULIO Lidocaine (Lidocaine Patch 1 Each Adh..Patch) 1 each TOP NOW ONE Stop: 10/14/22 12:47 Last Admin: 10/14/22 12:56 Dose: 1 each Documented By: BRAULIO Methocarbamol (Methocarbamol 500 Mg Tablet) 750 mg PO NOW ONE Stop: 10/14/22 12:47 Last Admin: 10/14/22 12:56 Dose: 750 mg Documented By: BRAULIO Vital Signs Vital signs: Vital Signs - 8 hr 10/14/22 11:18 Temperature 98.5 F Pulse Rate 100 H Respiratory Rate 16 Blood Pressure 164/84 H Pulse Oximetry 98 Oxygen Delivery Method Room Air MDM - Extremity (Nontraumatic) <ANNAMARIE Trinidad - Last Filed: 10/14/22 14:34> MDM Narrative Medical decision making narrative: Chief Complaint: Low back pain after COVID vaccine Independent historian: Patient Differential diagnoses include but are not limited to: Muscular sprain/strain, ligamental injury, cauda equina, lumbar radiculopathy, nerve entrapment, disc injury/herniation w/radiculopathy, acute fracture, renal colic, pyelonephritis, degenerative disc disease, cauda equina, AAA, osteomyelitis, epidural abscess, spinal stenosis, trauma, and critical cord compression. I have reviewed the patient's vital signs and nursing notes as well as prior records if available. Course of care: Suspect likely musculoskeletal etiology strain/sprain,/acute exacerbation of chronic low back pain. Patient's straight leg raise test was positive. No back pain red flags on history or physical. No history of IV substance use, or bony tenderness to palpation, no trauma, no bony tenderness to palpation , afebrile, no CVAT, no urinary symptoms. No bowel or urinary incontinence or retention, no saddle anesthesia, no new/worsening distal weakness, decreased reflexes or foot drop. Pt is nontoxic appearing. Patient has soft tissue tenderness to palpation. Pt is neurovascularly intact distally, afebrile, without immunosuppression or evidence of infection, peritoneal signs, hypertensive crisis, incontinence, or meningeal signs. Patient's symptoms improved over duration of stay with above-stated therapies. Social considerations that may affect disposition: none Questions are addressed and there is agreement with the plan and for follow-up. Patient is appropriate for outpatient management. MIPS: This encounter doesn't have any diagnosis' associated with MIPS criteria. I have independently reviewed the patient's vital signs and nursing notes as well as prior records if available. Pertinent lab findings reviewed: UA from the walk-in clinic as needed for blood or WBCs Pertinent Imaging reviewed: No imaging indicated CVA tenderness not present, no recent injury plaster tender but free of any obvious external abnormalities. Patient exam notes decreased range of motion and muscle spasm, but no CVA tenderness, or vertebral point tenderness. There are no symptoms of cauda equina such as saddle anesthesia, and decreased reflexes, decreased sensation or strength. Likely muscle seems to be related to hydration, he appears well hydrated NPO, had any other symptoms. Rajwinder with steady gait and reflexes are intact. Encouraged patient to follow up with his PCP and ask for a referral to physical therapy He received Toradol, lidocaine patch, hydrocodone, and methocarbamol in the emergency department has had mild improvement of his symptoms. He was prescribed Percocet and counseled how to avoid constipation and to not combine methocarbamol and Percocet without having somebody home and to take medications with food. His omeprazole was increased to 40 mg daily for the next 10 days as he has history of GERD. Social considerations that may affect disposition: none Questions are addressed and there is agreement with the plan and for follow-up. Patient is appropriate for outpatient management. MIPS: This encounter doesn't have any diagnosis' associated with MIPS criteria. 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 Sorry for these symptoms, the nerve is irritated this can take some time to improve. Please take 40 mg of omeprazole daily while taking this NSAID instead of a leave or naproxen. I have given you Toradol which stronger than that but it maybe more harsh on your stomach. This will not affect your mentation but the pain pill and the muscle relaxer may slow you down and cause grogginess. Please ensure your drinking plenty of water, encourage you to use MiraLax as well to help improve this symptom. Please send a message to Dr. Casiano and ask for a referral to physical therapy. This may be helpful as you get better and also for the future. Please try these medications to see how the combination works, okay for gentle massage, try to avoid exertion and worsening of this. *What to do: *Please continue to take your regular medications as directed. [x ] New medication prescriptions sent to your pharmacy: [ [facility]] [ ] New medication written as a paper prescription [ ] No new medications given *Please follow up with your primary care provider in 2-3 days, call for an appointment. Let them know you were seen in the Emergency Department and that we asked that you be seen for follow-up. We will electronically transmit a record of today's note if your PCP is in our system *If you do not have a primary care provider please contact [phone] to establish care with one of the [facility] primary care providers. *Return to Emergency Department if you should have any new, worsening, or concerning symptoms, such as [fever greater than 101F, chills, worsening pain, persistent vomiting or other bothersome symptoms]. Prescriptions: New methocarbamol 750 mg tablet 750 mg PO Q8H PRN (Reason: muscle spasm) Qty: 30 0RF lidocaine [Lidoderm] 5 % adhesive patch,medicated 1 patch topical DAILY PRN (Reason: pain) Qty: 15 0RF Rx Instructions: leave on most painful area for up to 12 hrs ketorolac 10 mg tablet 10 mg PO Q8H PRN (Reason: pain) Qty: 20 0RF Rx Instructions: Please take with food and plenty of water oxycodone-acetaminophen [Percocet] 5-325 mg tablet 1 tab PO Q8H PRN (Reason: pain) Qty: 20 0RF lidocaine [Lidoderm] 5 % adhesive patch,medicated 1 patch topical DAILY Qty: 15 0RF Rx Instructions: leave on most painful area for up to 12 hrs omeprazole 20 mg capsule,delayed release(DR/EC) 20 mg PO DAILY Qty: 10 0RF Rx Instructions: Please take a total of 40 mg of omeprazole daily for the next 10 days No Action cyclobenzaprine 5 mg tablet 5 mg PO TID PRN (Reason: muscle spasm) Qty: 20 0RF famotidine 10 mg tablet 10 mg PO BEDTIME Qty: 90 3RF omeprazole 20 mg capsule,delayed release(DR/EC) See Rx Instructions .ROUTE .COMPLEX Qty: 90 0RF Dose Instruction: TAKE 1 CAPSULE EVERY DAY Rx Instructions: TAKE 1 CAPSULE EVERY DAY methylphenidate HCl 20 mg capsule,del rel,ext rel sprink 20 mg PO BID Referrals: Arash Casiano MD [Primary Care Provider] - Stand Alone Forms: Patient Portal/API <Tami Quiles DO - Last Filed: 10/14/22 18:40> Cosign ED Attending Susanature Attestation: I was immediately available in the department for consultation.
== END 2022-10-14 14:42 | disposition home or self-care (01) ==
PROVIDERS: Emergency Provider Nurse Practitioner Critical Care Medicine; PCP Family Medicine
DX: M62.830 Muscle spasm of back (principal); M54.50 Low back pain, unspecified; T50.B95A Adverse effect of other viral vaccines, initial encounter
CPT/HCPCS: 96372; 99283; J1885

== ENCOUNTER 2022-10-18 08:56 | Emergency (ER) | payer MEDICARE, OTHER, SELFPAY ==
[2022-10-18 09:08] VITALS: BP 171/116; PULSE 95; RESP 18; TEMP 37; O2SAT 97; BMI 24.0
--- NOTE | 2022-10-18 09:11 | ED_ITS ---
HPI - Back Pain/Injury General Chief Complaint: Extremity Problem,Nontraumatic Stated Complaint: muscular pain, nuero pain into left leg Time Seen by Provider: 10/18/22 09:06 Source: patient, RN notes reviewed and old records reviewed Mode of arrival: Ambulatory Limitations: no limitations History of Present Illness HPI Narrative: This is a 71-year-old male who presents with complaint of lower back pain radiating down his left leg. Patient states it started about a day after he received his COVID vaccination. He states it has been persistent 1st it was just his back but is now radiating down his leg. He states radiation down his leg started 3 days ago. He has been in contact with primary care they told him take ibuprofen and hydrate, he went to the walk-in clinic and then was seen here recently by 1 of our providers and prescribe Percocet, ketorolac, Soma and lidocaine patches. Patient states he has not been using lidocaine patches they have been helpful at all. He feels like the Percocet, ketorolac and Soma are minimally helpful. Quite a bit of difficulty with sleep. He describes pain that radiates down the leg just on the left, no numbness, tingling or paresthesias. No weakness although he has quite a bit of pain trying to ambulate. Denies any loss of bowel or bladder control. Denies fevers or chills. No cough cold or congestion. No chest pain or shortness breath. No nausea or vomiting. Patient states he has been stooling regularly particularly after starting a stool softener to help with constipation. He denies any incontinence or retention. Patient states he was not having issues like this until recently. He has not had chronic back issues. He states he normally takes famotidine for reflux, methylphenidate for ADHD as his regular meds. Patient denies any prior back surgeries or interventions. He denies any rash or skin changes. Dr. Maria is his primary care. Tobacco, occasional alcohol, no illicit. Patient's accompanied him. Patient states he has been taking the medications regularly about every 8 hours he has not increased the dosage. States he is tolerable during the daytime but has significant trouble in the evening and sleeping which is what prompted him to return. Related Data Home Medications Medication Instructions Recorded Confirmed methylphenidate HCl 20 mg 20 mg PO BID 07/15/22 10/12/22 capsule,delayed release,ext release sprinkle Previous Rx's Medication Instructions Recorded famotidine 10 mg tablet 10 mg PO BEDTIME #90 tabs 07/27/22 omeprazole 20 mg capsule,delayed See Rx Instructions .Route 10/09/22 release .COMPLEX #90 caps cyclobenzaprine 5 mg tablet 5 mg PO TID PRN muscle spasm #20 10/12/22 tabs ketorolac 10 mg tablet 10 mg PO Q8H PRN pain #20 tabs 10/14/22 lidocaine 5 % topical patch 1 patch topical DAILY #15 ea 10/14/22 (Lidoderm) lidocaine 5 % topical patch 1 patch topical DAILY PRN pain #15 10/14/22 (Lidoderm) ea methocarbamol 750 mg tablet 750 mg PO Q8H PRN muscle spasm #30 10/14/22 tabs omeprazole 20 mg capsule,delayed 20 mg PO DAILY #10 caps 10/14/22 release oxycodone-acetaminophen 5 mg-325 1 tab PO Q8H PRN pain #20 tabs 10/14/22 mg tablet (Percocet) gabapentin 300 mg capsule 300 mg PO TID #60 caps 10/18/22 (Neurontin) oxycodone 5 mg tablet 5 mg PO Q6H PRN pain #10 tabs 10/18/22 prednisone 20 mg tablet 40 mg PO DAILY #10 tabs 10/18/22 Allergies Allergy/AdvReac Type Severity Reaction Status Date / Time codeine [CODEINE] AdvReac Unknown groggy Verified 10/12/22 16:49 Review of Systems Review of Systems ROS Unobtainable: All systems reviewed & are unremarkable except as noted in HPI and below Patient History Medical History Anxiety BPH (benign prostatic hyperplasia) (~1999) Central sleep apnea GERD (gastroesophageal reflux disease) (~1994) Headache Hearing loss associated with syndrome of both ears Hyperglycemia Lyme disease (~1994) Tinnitus (~1999) Surgical History Anesthesia History of tonsillectomy Inguinal hernia (~1994) Family History Mother Age: 97 Dementia Grandmother Glaucoma Father No problems noted. Grandmother No problems noted. Sister No problems noted. Family/Other No problems noted. Social History household members: spouse Smoking Status: Never smoker Smoking Status: Never smoker alcohol intake frequency: holidays/special occasions only Substance Use Type: does not use Exam Narrative Exam Narrative: GENERAL: Alert and oriented x three, mild distress. HEENT: Head normocephalic, atraumatic, EOMI, pupils reactive, face symmetric, moist mucous membranes NECK: Supple, full range of motion CARDIOVASCULAR: Regular rate and rhythm without murmurs, rubs or gallops. RESPIRATORY: Breath sounds equal bilaterally, no wheezes rales or rhonchi. ABDOMEN: Soft, nontender. Normoactive bowel sounds all 4 quadrants. No guarding or rebound, rigidity, no mass : No CVA tenderness BACK: No cervical, thoracic or lumbar vertebral point tenderness. Patient has normal range of motion. Patient's gait is normal. Rectal exam is deferred. Muscle strength is 5/5 in lower extremities, DTRs are 2/4 and lower extremities. Dorsalis pedis and tibialis pulses are 2+ and lower extremities. Sensation is intact in the lower extremities. EXTREMITIES: Normal range of motion, no clubbing or edema. Neurovascularly intact NEUROLOGICAL: Cranial nerves II through XII grossly intact. Moving all extremities SKIN: Warm, dry, no petechiae, no rashes or lesions. Initial Vital Signs Initial Vital Signs: Vital Signs Temperature 98.6 F 10/18/22 09:08 Pulse Rate 95 H 10/18/22 09:08 Respiratory Rate 18 10/18/22 09:08 Blood Pressure 171/116 H 10/18/22 09:08 Pulse Oximetry 97 10/18/22 09:08 Oxygen Delivery Method Room Air 10/18/22 09:08 Course Orders Ordered: Discontinued Medications Prednisone (Prednisone 20 Mg Tablet) 60 mg PO NOW ONE Stop: 10/18/22 09:40 Last Admin: 10/18/22 09:48 Dose: 60 mg Documented By: BRAULIO Vital Signs Vital signs: Vital Signs - 8 hr 10/18/22 11:06 10/18/22 11:07 10/18/22 11:07 Pulse Rate 89 92 H Blood Pressure 168/94 H Pulse Oximetry 96 98 MDM - Back Pain/Injury Imaging Data Lspine xray: Radiologist's Impression: Close Lumbar Spine X-Ray (Signed) Santino Young - 10/18/22 Chest X-Ray (Signed) Kalia Smith - 08/13/22 EKG Rpt. 08/25/21 Brain MRI (Signed) Santino Young - 05/12/21 EKG Rpt. 04/22/20 Telemetry Strips 04/25/19 Launch?[address] [address] XRay Report Signed Patient: Scott Mei MR#: [id number] : 1950 Acct:[id number] Age/Sex: 71 / M Date of Service: 10/18/22 Loc: ED Accession Number: [id number] ?? Procedure: XR lumbar spine 2-3V Ordering Provider: Tami Quiles D.O. PROCEDURE:? XR LUMBAR SPINE 2-3V ? INDICATIONS:? low back pain, radiates down left leg ? TECHNIQUE:? 3 views of the lumbar spine were acquired.? ? COMPARISON:? None. ? FINDINGS:? ? Bones:? 5 [id number] vertebrae are present.? ? No suspicious bony lesions.? ? A remote right rib fracture of the mid to posterior aspect of L5 can be seen, with 20-30% loss of height posteriorly. ? Grade 1 anterolisthesis is seen at L5-S1, with bilateral pars defects.? Minimal levoconvex scoliotic curvature is seen. ? Moderate disc space narrowing is seen at L5-S1. The disc heights otherwise appea r well-preserved.? Lower lumbar spine facet arthropathy is seen.? ? Soft tissues:? Overlying bowel gas pattern is normal.? No suspicious soft tissue calcifications.? ? ? IMPRESSION:? Focal L5-S1 degenerative change is seen, with moderate disc space narrowing, grade 1 anterolisthesis, and bilateral L5 pars defects. ? L5 compression deformity. ? If it would be helpful for clinical management decision making, please consider a dedicated, scheduled lumbar spine MRI for further evaluation (assuming that there is no contraindication).? ? ? Dictated by: Santino Young M.D. on 10/18/2022 at 9:20 ? ? Approved by: Santino Young M.D. on 10/18/2022 at 9:21 MDM Narrative Medical decision making narrative: This is a 71-year-old male who presents with radiculopathy/sciatica type symptoms. Patient exam does not show any weakness or focal deficits, no neurologic changes or red flag symptoms prompting MRI today. Lumbar spine x-ray was obtained as he has not had any imaging based on his age to evaluate for any sort of fracture, metastatic change or other lesions. Patient does have focal L5-S1 degenerative change with some moderate disc space narrowing grade 1 anterolisthesis and bilateral L5 pars defects with an L5 compression deformity. Discussed with patient he would benefit from outpatient follow-up, probably MR I, possibly PT or localized interventions with Dr. Mathews's locally. He has not found pain medications very helpful will try a short course of steroids for inflammation, Neurontin for her pain and patient can continue with as needed oxycodone but changed to Tylenol/ibuprofen. Discussed with patient he is not actually been set up with PT, asked him to follow up with his primary care they may do additional workup imaging and PT. He can self refer to Dr. Vieira if insurance allows and we discussed his findings today with him and his . No signs of infection, mass or other acute concerning changes. Discussed he may need additional workup at imaging but they he has several tools that may be to manage his and improve his situation. Discharge Plan Departure Patient Disposition: Home Clinical Impression: Radiculopathy Qualifiers: Spinal region: lumbar Qualified Code(s): M54.16 - Radiculopathy, lumbar region Instructions: DI for Back Pain With Sciatica Activity Restrictions/Additional Instructions: Follow-up with your physician for recheck and possible further workup, go ahead and set up an appointment with Dr. Casiano. Following up with PT may be helpful. You can reach out to Dr. Vieira to see if they can be helpful with some interventions to help with your pain management. Stop the Percocet and ketorolac. You can take ibuprofen up to 600 mg every 6 hours and/or Tylenol up to a 1000 mg every 6 hours. You have been given a short term prescription for steroids to see if this reduces your symptoms. Take until gone. Take Neurontin 1 tablet every 8 hours as needed for pain. This medication can b e titrated upwards if needed. If these medications are in adequate you can take 1-2 tablets of oxycodone (narcotic pain medicine) as needed. This may be helpful to take right before sleep as well. Continue pain medication as prescribed. This medication can make you sleepy do not drive, perform hazardous activities or make any major decisions while taking it. This medication will make you constipated please take a stool softener once to twice daily until stools are soft and regular. Prescription sent to [facility] in [place] Please return for fevers, rapidly worsening or intractable pain, new weakness, loss of sensation, inability to lift your foot or leg, loss of bowel or bladder control or other new or concerning changes. Prescriptions: New prednisone 20 mg tablet 40 mg PO DAILY Qty: 10 0RF gabapentin [Neurontin] 300 mg capsule 300 mg PO TID Qty: 60 0RF oxycodone 5 mg tablet 5 mg PO Q6H PRN (Reason: pain) Qty: 10 0RF No Action cyclobenzaprine 5 mg tablet 5 mg PO TID PRN (Reason: muscle spasm) Qty: 20 0RF famotidine 10 mg tablet 10 mg PO BEDTIME Qty: 90 3RF omeprazole 20 mg capsule,delayed release(DR/EC) See Rx Instructions .ROUTE .COMPLEX Qty: 90 0RF Dose Instruction: TAKE 1 CAPSULE EVERY DAY Rx Instructions: TAKE 1 CAPSULE EVERY DAY methylphenidate HCl 20 mg capsule,del rel,ext rel sprink 20 mg PO BID methocarbamol 750 mg tablet 750 mg PO Q8H PRN (Reason: muscle spasm) Qty: 30 0RF lidocaine [Lidoderm] 5 % adhesive patch,medicated 1 patch topical DAILY PRN (Reason: pain) Qty: 15 0RF Rx Instructions: leave on most painful area for up to 12 hrs ketorolac 10 mg tablet 10 mg PO Q8H PRN (Reason: pain) Qty: 20 0RF Rx Instructions: Please take with food and plenty of water oxycodone-acetaminophen [Percocet] 5-325 mg tablet 1 tab PO Q8H PRN (Reason: pain) Qty: 20 0RF lidocaine [Lidoderm] 5 % adhesive patch,medicated 1 patch topical DAILY Qty: 15 0RF Rx Instructions: leave on most painful area for up to 12 hrs omeprazole 20 mg capsule,delayed release(DR/EC) 20 mg PO DAILY Qty: 10 0RF Rx Instructions: Please take a total of 40 mg of omeprazole daily for the next 10 days Referrals: Arash Casiano MD [Primary Care Provider] - Stand Alone Forms: Patient Portal/API
--- NOTE | 2022-10-18 09:39 | DI.RAD.S_ITS ---
PROCEDURE: XR LUMBAR SPINE 2-3V INDICATIONS: low back pain, radiates down left leg TECHNIQUE: 3 views of the lumbar spine were acquired. COMPARISON: None. FINDINGS: Bones: 5 [id number] vertebrae are present. No suspicious bony lesions. A remote right rib fracture of the mid to posterior aspect of L5 can be seen, with 20-30% loss of height posteriorly. Grade 1 anterolisthesis is seen at L5-S1, with bilateral pars defects. Minimal levoconvex scoliotic curvature is seen. Moderate disc space narrowing is seen at L5-S1. The disc heights otherwise appear well-preserved. Lower lumbar spine facet arthropathy is seen. Soft tissues: Overlying bowel gas pattern is normal. No suspicious soft tissue calcifications. IMPRESSION: Focal L5-S1 degenerative change is seen, with moderate disc space narrowing, grade 1 anterolisthesis, and bilateral L5 pars defects. L5 compression deformity. If it would be helpful for clinical management decision making, please consider a dedicated, scheduled lumbar spine MRI for further evaluation (assuming that there is no contraindication). Dictated by: Santino Young M.D. on 10/18/2022 at 9:20 Approved by: Santino Young M.D. on 10/18/2022 at 9:21
[2022-10-18] MEDS: predniSONE 20 MG TABLET 60 MG PO (09:48)
[2022-10-18 11:06] VITALS: PULSE 89; O2SAT 96
[2022-10-18 11:07] VITALS: BP 168/94; PULSE 92; O2SAT 98
== END 2022-10-18 11:14 | disposition home or self-care (01) ==
PROVIDERS: Emergency Provider Emergency Medicine; PCP Family Medicine
DX: M54.16 Radiculopathy, lumbar region (principal)
CPT/HCPCS: 72100; 99283

== ENCOUNTER → 2022-10-21 18:41 | Outpatient (CLI) | payer MEDICARE, OTHER, SELFPAY ==
--- NOTE | 2022-10-21 18:43 | DI.MRI.S_ITS ---
PROCEDURE: MR LUMBAR SPINE WO CON INDICATIONS: Dorsalgia, unspecified TECHNIQUE: Noncontrast sagittal T1 spin echo and T2 fast echo, sagittal STIR, and T2 fast spin echo through the lumbar spine. In cases with scoliosis, additional coronal T2 fast spin echo may be performed. COMPARISON: [facility], CR, XR LUMBAR SPINE 2-3V, 10/18/2022, 9:45. FINDINGS: Image quality: Excellent. Alignment and Curvature: Bilateral L5 pars defects. 6 mm anterolisthesis L5 on S1. Bone Marrow: Marrow is of normal overall signal. No acute vertebral body compression fractures. Spinal Cord: Conus medullaris terminates at the L1-L2 level. Visualized cord demonstrates normal signal and size. Paraspinous Soft Tissues: No paravertebral masses. T12-L1: Normal appearance. L1-L2: Normal appearance. L2-L3: Normal appearance. L3-L4: Facet hypertrophy. No canal stenosis or foraminal stenosis. L4-L5: Mild facet hypertrophy. No canal stenosis or foraminal stenosis. L5-S1: Bilateral L5 pars defects. Mild anterolisthesis of L5 on S1. No central canal stenosis. Mild facet hypertrophy. Moderate to severe left foraminal narrowing with left foraminal L5 nerve root impingement. IMPRESSION: 1. At L5-S1, there are bilateral L5 pars defects, mild anterolisthesis of L5 on S1, and moderate to severe left foraminal narrowing, with left foraminal L5 nerve root impingement. 2. Mild multilevel facet arthropathy. Dictated by: Macho Odell M.D. on 10/22/2022 at 8:19 Approved by: Macho Odell M.D. on 10/22/2022 at 8:22
== END ==
PROVIDERS: PCP Family Medicine; Referring Provider Family Medicine; Visit Provider Family Medicine
DX: M43.17 Spondylolisthesis, lumbosacral region; M47.816 Spondylosis without myelopathy or radiculopathy, lumbar region; M47.817 Spondylosis without myelopathy or radiculopathy, lumbosacral region; M48.07 Spinal stenosis, lumbosacral region; M54.9 Dorsalgia, unspecified
CPT/HCPCS: 72148

== ENCOUNTER → 2022-11-02 11:03 | Outpatient (CLI) | payer MEDICARE, OTHER, SELFPAY ==
--- NOTE | 2022-11-02 11:04 | DI.RAD.S_ITS ---
PROCEDURE: XR LUMBAR SPINE MIN 4V INDICATIONS: Spondylolysis, please assess stability TECHNIQUE: 5 views of the lumbar spine acquired, including flexion and extension views. COMPARISON: [facility], , XR LUMBAR SPINE 2-3V, 10/18/2022, 9:45. FINDINGS: Bones: 5 nonrib-bearing vertebrae are present. There is normal bony alignment. No vertebral body compression fractures. No suspicious bony lesions. Mild disc space narrowing hypertrophic facet joints noted in the lower lumbar spine. L5 pars defects and grade 1 anterior spondylolisthesis remains stable from the prior exam. Soft tissues: Overlying bowel gas pattern is normal. No suspicious soft tissue calcifications. Flexion/extension: There is normal range of motion, with preserved normal alignment. IMPRESSION: Grade 1 isthmic spondylolisthesis at L5-S1, stable Approved by: Jesus Wick M.D. on 11/02/2022 at 18:39
== END ==
PROVIDERS: PCP Family Medicine; Referring Provider Anesthesiology; Visit Provider Anesthesiology
DX: M43.17 Spondylolisthesis, lumbosacral region (principal); M48.061 Spinal stenosis, lumbar region without neurogenic claudication; M54.16 Radiculopathy, lumbar region
CPT/HCPCS: 72110; 99214

== ENCOUNTER 2022-11-12 14:05 | Outpatient (CLI) | payer MEDICARE, OTHER, SELFPAY ==
--- NOTE | 2022-11-12 14:06 | DI.RAD.S_ITS ---
PROCEDURE: PAIN L/S TRANSFORAMINAL INJECT INDICATIONS: LUMBAR RADICULOPATHY COMPARISON: None. FINDINGS: Fluoroscopic spot filming was performed to verify placement of spinal needles at the L5-S1 level(s), as labeled on the films. Appropriate location(s) of the needle tip(s) was confirmed by injection of iodinated contrast. IMPRESSION: Intraprocedural fluoroscopy was provided for guidance and anatomical localization. Please see the procedure report for further details. Dictated by: Rosales Meier M.D. on 11/12/2022 at 16:24 Approved by: Rosales Meier M.D. on 11/12/2022 at 16:25
[2022-11-12 14:15] VITALS: BP 145/88; PULSE 92; RESP 18; TEMP 36.1; O2SAT 98
[2022-11-12 14:35] VITALS: BP 147/72; PULSE 88; RESP 16; O2SAT 97
[2022-11-12] MEDS: DEXAMETHASONE 10 MG/ML VIAL 20 MG INJ (14:35)
[2022-11-12] MEDS: IOPAMIDOL 15 ML VIAL 3 ML INJ (14:36)
[2022-11-12 14:40] VITALS: BP 159/80; PULSE 85; RESP 16; O2SAT 96
[2022-11-12 14:45] VITALS: BP 154/80; PULSE 86; RESP 16; O2SAT 96
[2022-11-12 14:50] VITALS: BP 134/80; PULSE 91; RESP 20; O2SAT 97
--- NOTE | 2022-11-12 15:06 | P.PCN_ITS ---
Date/Time/Diagnoses Date of procedure: 11/12/22 Time of procedure: 14:30 Procedure Notes Physician: Ernst Ahumada Total Fluoroscopy time (seconds): 35 Total sedation minutes: 0 Procedure in detail & Post-procedure care: Left L5-S1 Transforaminal Epidural Steroid Injection Indications: Scott is presenting for treatment of lumbar radiculopathy with low back and leg pain. Preoperative diagnosis: Left lumbar radiculopathy Postoperative diagnosis: Same Focused Examination: Ax3 Mood and affect are normal Vital Signs: VSS ASA: 2 Consent: Following review of allergies and potential side effects/complications, including, but not necessarily limited to, infection, allergic reaction, local tissue breakdown, stroke, temporary or permanent nerve injury, paralysis, and possible , the patient indicated that they understood and agreed to proceed.? An informed consent document was signed by the patient, witnessed by a nurse and placed in the patient's chart.? Additionally, other treatment options including medications and physical therapy were reviewed with the patient. All questions were answered. Site was then marked. Anesthesia: Local Position: Prone Monitoring: NIBP, Pulse oximetry, 3 lead EKG Needle used: 22G 3.5 inch spinal needle Contrast: Isovue 300M Injectate: 15 mg Dexamethasone mixed with 1% lidocaine 2 ml Technique: The skin was prepped with chloraprep and draped in a sterile fashion. Time out was performed as per protocol. Oxygen applied via NC. Skin and subcutaneous structures of the needle entry site were infiltrated with 3mL of lidocaine 1%. Under fluoroscopic guidance, using an ipsilateral oblique view,?a 22 gauge 3.5 inch needle was advanced to the base of the left L5?pedicle.? The needle was advanced to the superio-posterior aspect of the neural foramen under lateral view.? Oblique and AP views were rechecked. No paresthesias noted by the patient during needle placement. In AP view and utilizing real-time digital subtraction fluoroscopy, 2 ml contrast was slowly injected. Epidural spread was observed without evidence for intravascular nor intrathecal uptake. Contrast spread was seen craniocaudally. The above injectate was then administered, and the needle was subsequently withdrawn. Band-Aids applied to injection sites. EBL: less than 1 ml Complications: None Post Procedure: Patient was taken to the recovery and monitored. The patient was provided a Pain Log to continue to record the patient's response to the target- specific procedure prior to the patient's follow-up visit with the referring physician. Patient was stable upon discharge. Detailed post procedure instructions were provided. Patient was asked to call in the event of worsening pain, fever, weakness, numbness or bladder or bowel incontinence.
== END 2022-11-12 14:55 | disposition home or self-care (01) ==
LOC: RAD 14:06
PROVIDERS: PCP Family Medicine; Referring Provider Anesthesiology; Visit Provider Anesthesiology
DX: M54.16 Radiculopathy, lumbar region (principal)
CPT/HCPCS: 64483; J1100

== ENCOUNTER 2023-06-22 08:15 | Outpatient (RCR) | payer MEDICARE, OTHER, SELFPAY ==
--- NOTE | 2022-12-21 18:55 | PT.OIE ---
Current Diagnoses Dorsalgia, unspecified (12/21/22) Difficulty in walking, not elsewhere classified (12/21/22) Abnormal posture (12/21/22) Weakness (12/21/22) Past Medical History (Last Reviewed 12/10/22 @ 10:30 by Ernst Ahumada MD) Anxiety BPH (benign prostatic hyperplasia) (~1999) Central sleep apnea Compression fracture Foraminal stenosis of lumbar region GERD (gastroesophageal reflux disease) (~1994) Headache Hearing loss associated with syndrome of both ears Hyperglycemia Lumbar nerve root impingement Lumbar radiculopathy Lyme disease (~1994) Spondylolysis of lumbar region Tinnitus (~1999) Past Surgical History (Last Reviewed 12/10/22 @ 10:30 by Ernst Ahumada MD) Anesthesia History of tonsillectomy Inguinal hernia (~1994) Visit Care Team Role Provider Type Arash Casiano MD Attending Provider Physician Family Provider Primary Care Provider Referring Provider Specialty: [facility] Address: [address] [place] [address] Email: [email or web address] Physical Therapy Initial Evaluation PT-OP-A Visit Information Start: 12/17/22 11:56 Freq: Status: Active Protocol: Document 12/21/22 11:53 [facility] (Rec: 12/21/22 13:39 [facility] [id number]) Out-Patient Physical Therapy Visit Information Visit Information Visit Type Initial Evaluation Visit Note 07/28 Visit Start Time 12:48 Visit Stop Time 13:33 Total Visit Minutes 45 Visit Number 1 Number of COMMERCIAL FLOOR COVERING INSTALLER Visits 0 PT-OP-B Current Condition Start: 12/17/22 11:56 Freq: Status: Active Protocol: Document 12/21/22 11:53 [facility] (Rec: 12/21/22 13:39 [facility] [id number]) Current Condition History of Current Condition Onset Date 2 months ago Current Complaints LBP and L leg pain History of Current Condition Pt reports he has not had any back issues or concerns ever, but around his 72th bday. He doesn't have recolection of anything that caused it. tylenol didn't help and went to ER for tordal and mm relaxors and afew days later, it didn't better. Xray the 2nd time in ER and had oxycodone and neurotin and gabapentin and baclofen and that helped. Initally the pain was so bad, he was crawling to the bathroom and could barely get up. Pt saw Dr. Ahumada and he got an injection and he has been signifcantly better after this whre it is onlyl ow level pain. He saw a specialist in [place]. Pain started in LB and pretty soon after it was burning and painful in post thigh & lat bush and into dorsum of foot. Pt is hoping to go to [place] in the fall w/his . In the last couple weeks, he has seen Dr. Casiano for acupuncture. He has been off the oxy for a month. He has been off all meds for about 1- 2 weeks. he feels tired a little. 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 Pt is using a lumbar cusion behind his back . Pt reports if he stands any period of time, he starts to feel the pain as it just starts to ache a little. Pt reports his typical lifestyle is pretty sedentary. He has not riden his bike since this either. Prior Treatments and Tests Xray: IMPRESSION: Grade 1 isthmic spondylolisthesis at L5-S1, stable MRI lumbar: IMPRESSION: 1. At L5-S1, there are bilateral L5 pars defects, mild anterolisthesis of L5 on S1, and moderate to severe left foraminal narrowing, with left foraminal L5 nerve root impingement. 2. Mild multilevel facet arthropathy. Injection on 11/12/22 Treatment Goals Patient/Caregiver Goals be able to walk in [place] in afew months PT-OP-C Subjective Start: 12/17/22 11:56 Freq: Status: Active Protocol: Document 12/21/22 11:53 [facility] (Rec: 12/21/22 13:39 [facility] [id number]) Patient Questionnaires Oswestry Low Back Index Oswestry Score 14/50 OP-PT Pain Assessment Location back Pain Location Details LB and mostly post thigh Description Acute Frequency Intermittent Pain Aggravating Factors Standing Other Pain Alleviating Factors rest PT-OP-D Balance Start: 12/17/22 11:56 Freq: Status: Active Protocol: Document 12/21/22 11:53 [facility] (Rec: 12/21/22 13:39 [facility] [id number]) Balance Tests Single Limb Standing Single Limb- Right 6 sec a lot of deviation Single Limb- Left 4 sec a lot of deviation PT-OP-G Mobility & Gait Start: 12/17/22 11:56 Freq: Status: Active Protocol: Document 12/21/22 11:53 [facility] (Rec: 12/21/22 13:39 [facility] [id number]) OP Gait Assessment Comments Gait Comments amb w/ lat lean over LLE PT-OP-J Posture/Palpation/Skin Start: 12/17/22 11:56 Freq: Status: Active Protocol: Document 12/21/22 11:53 [facility] (Rec: 12/21/22 13:39 [id number] Posture Evaluation Blaine Postural Classification System Blaine Postural Classifications Posterior/Anterior Lumbar Protective Mechanism Left AP 0 Lumbar Protective Mechanism Right AP 0 Lumbar Protective Mechanism Left PA 0 Lumbar Protective Mechanism Right PA 1 PT-OP-K Range of Motion Start: 12/17/22 11:56 Freq: Status: Active Protocol: Document 12/21/22 11:53 [facility] (Rec: 12/21/22 13:39 [id number]) Lumbar Spine Range of Motion Lumbar Spine Active Percentage Flexion 50 Extension 60 Rotation Left 50 Rotation Right 50 Lateral Flexion Left 75 Lateral Flexion Right 75 Comments some discomfort w/ext PT-OP-M Strength Start: 12/17/22 11:56 Freq: Status: Active Protocol: Document 12/21/22 11:53 [facility] (Rec: 12/21/22 13:39 [facility] [id number]) Hip Strength Hip Manual Muscle Testing Right Flexion (L2) 4 Good External Rotation 5 Normal Internal Rotation 5 Normal Left Flexion (L2) 4- Good- External Rotation 4- Good- Internal Rotation 4- Good- Knee Strength Knee Manual Muscle Testing Right Flexion (S2) 5 Normal Extension (L3) 5 Normal Left Flexion (S2) 5 Normal Extension (L3) 4 Good Ankle/Foot Strength Ankle and Foot Manual Muscle Testing Right Dorsiflexion (L4) 5 Normal Left Dorsiflexion (L4) 4 Good PT-OP-Q Treatments Start: 12/17/22 11:56 Freq: Status: Active Protocol: Document 12/21/22 11:53 [facility] (Rec: 12/23/22 09:59 [facility] [id number]) Self-Care/Home Management Treatment Education Other Education 10 min: edu w/use of spine model and anatomy images w/ discussion of MRI image results. Edu importance of core stability and even spinal mobility PT-OP-T Assessment and Plan Start: 12/17/22 11:56 Freq: Status: Active Protocol: Document 12/21/22 11:53 [facility] (Rec: 12/21/22 13:39 [facility] [id number]) Physical Therapy Assessment Rehab Potential Rehabilitation Potential Good Evaluation Complexity Number of Personal Factors/Comorbidities 3 or More Number of Body Systems Impaired 4 or More Clinical Presentation at Evaluation Evolving Impairments Impairments Activity Tolerance,Balance, Functional Activities, Functional Mobility,Gait,Pain, Posture,ROM,Soft Tissue Mobility,Strength Goals strength Short Term Goal (STG) Pt will be indep w/HEP STG Duration 01/30 Crew Truck Driver Goal (LTG) Pt will score at least 3/5 on LPM and 5/5 on all LE MMT to show improved stabiltiy in order to dec instances of pain . LTG Duration 03/15 activities Residential Goal (LTG) Pt will be able to go for walks w/o inc pain (at least 3 miles) LTG Duration 03/02 NAN Impairment 14/50 Short Term Goal (STG) Pt iwll improve score to no greater than 9/50 to show imrpoved functional ability. STG Duration 01/27/23 Crew Truck Driver Goal (LTG) Pt will improve score to no greater than 3/50 to show imrpoved functional ability. LTG Duration 03/10/23 Assessment Summary Assessment Pt presents w/LBP and LLE pain starting in October w/recent improvement after injection at the end of October. He does still note residual pain, but at a much lower level. he is also worried aobut increasing his activity too much as he doesn't know what started his pain. He does have limtied lumbar ROM, dec core stability and hip stability and general LLE weakness. He would benefit from skilled PT to work on gait, posture, core and hip staibltiy and LE and spinal alignment. Physical Therapy Plan Frequency and Duration Frequency of Treatment 1-2x/wk Duration of treatment (weeks) 12 Plan of Care Start Date 12/21/22 Plan of Care End Date 03/15/23 Therapeutic Interventions Therapeutic Interventions Balance Training,Gait Training ,Home Exercise Program,Joint Mobilizations,Manual Therapy, Neuromuscular Re-education, Orthotic/Prosthetic Management ,Patient/Caregiver Education, Self-Care/Home Management,Soft Tissue Mobilization,Taping, Therapeutic Activities, Therapeutic Exercises Modalities Cold Pack/Ice Massage,Electric Stimulation,Hot Packs, Ultrasound Next Visit Focus/Plan Next Note Type Treatment Note Next Visit Plan Hip joint mobs, STm to lumbar, Gentle to L5 region d/t pars defect, Supine core stability: LTR, marches, SL isometric ; Hip stretches: figure 4 & piriformis & HS
--- NOTE | 2022-12-23 18:55 | PT.OPPOC ---
Physical, Occupational & Speech Therapy At [facility] Current Diagnoses Dorsalgia, unspecified (12/21/22) Difficulty in walking, not elsewhere classified (12/21/22) Abnormal posture (12/21/22) Weakness (12/21/22) Visit Care Team Role Provider Type Arash Casiano MD Attending Provider Physician Family Provider Primary Care Provider Referring Provider Specialty: Family Practice Address: [address] [place] [address], [facility] Email: [email or web address] Plan Of Care PT-OP-T Assessment and Plan Start: 12/17/22 11:56 Freq: Status: Active Protocol: Document 12/21/22 11:53 [facility] (Rec: 12/21/22 13:39 [facility] [id number]) Physical Therapy Assessment Rehab Potential Rehabilitation Potential Good Evaluation Complexity Number of Personal Factors/Comorbidities 3 or More Number of Body Systems Impaired 4 or More Clinical Presentation at Evaluation Evolving Impairments Impairments Activity Tolerance,Balance, Functional Activities, Functional Mobility,Gait,Pain, Posture,ROM,Soft Tissue Mobility,Strength Goals strength Short Term Goal (STG) Pt will be indep w/HEP STG Duration 01/30 Fpc Goal (LTG) Pt will score at least 3/5 on LPM and 5/5 on all LE MMT to show improved stabiltiy in order to dec instances of pain . LTG Duration 03/15 activities Network Operations Technician Goal (LTG) Pt will be able to go for walks w/o inc pain (at least 3 miles) LTG Duration 03/02 NAN Impairment 14/50 Short Term Goal (STG) Pt iwll improve score to no greater than 9/50 to show imrpoved functional ability. STG Duration 01/27/23 Network Operations Technician Goal (LTG) Pt will improve score to no greater than 3/50 to show imrpoved functional ability. LTG Duration 03/10/23 Assessment Summary Assessment Pt presents w/LBP and LLE pain starting in October w/recent improvement after injection at the end of October. He does still note residual pain, but at a much lower level. he is also worried aobut increasing his activity too much as he doesn't know what started his pain. He does have limtied lumbar ROM, dec core stability and hip stability and general LLE weakness. He would benefit from skilled PT to work on gait, posture, core and hip staibltiy and LE and spinal alignment. Physical Therapy Plan Frequency and Duration Frequency of Treatment 1-2x/wk Duration of treatment (weeks) 12 Plan of Care Start Date 12/21/22 Plan of Care End Date 03/15/23 Therapeutic Interventions Therapeutic Interventions Balance Training,Gait Training ,Home Exercise Program,Joint Mobilizations,Manual Therapy, Neuromuscular Re-education, Orthotic/Prosthetic Management ,Patient/Caregiver Education, Self-Care/Home Management,Soft Tissue Mobilization,Taping, Therapeutic Activities, Therapeutic Exercises Modalities Cold Pack/Ice Massage,Electric Stimulation,Hot Packs, Ultrasound Next Visit Focus/Plan Next Note Type Treatment Note Next Visit Plan Hip joint mobs, STm to lumbar, Gentle to L5 region d/t pars defect, Supine core stability: LTR, marches, SL isometric ; Hip stretches: figure 4 & piriformis & HS Plan of Care Dates Plan of Care Start Date 12/21/22 Plan of Care End Date 03/15/23 Electronically Signed by: Rose Mary Olmos, PT 12/23/22 1507 If you are in agreement with this Plan of Care, please return a signed and dated copy. I have reviewed this Plan of Care and certify that the skilled therapy services above are required to meet the patient?s needs. Physician Signature Date Printed Name and Credentials Clinical Instructor Signature Printed Name and Credentials
--- NOTE | 2023-01-12 12:07 | PT.OTN ---
Current Diagnoses Dorsalgia, unspecified (01/12/23) Difficulty in walking, not elsewhere classified (01/12/23) Abnormal posture (01/12/23) Weakness (01/12/23) Physical Therapy Treatment Note PT-OP-A Visit Information Start: 12/17/22 11:56 Freq: Status: Active Protocol: Document 01/12/23 08:19 [facility] (Rec: 01/12/23 12:07 [facility] [id number]) Out-Patient Physical Therapy Visit Information Visit Information Visit Type Treatment Note Visit Note 08/28 Student PT Lora Lemus participated in treatment session Visit Start Time 08:19 Visit Stop Time 09:05 Total Visit Minutes 46 Visit Number 2 Number of DESKTOP ADMINISTRATOR Visits 0 PT-OP-B Current Condition Start: 12/17/22 11:56 Freq: Status: Active Protocol: Document 12/21/22 11:53 [facility] (Rec: 12/21/22 13:39 [facility] [id number]) Current Condition History of Current Condition Onset Date 2 months ago Current Complaints LBP and L leg pain History of Current Condition Pt reports he has not had any back issues or concerns ever, but around his 72th bday. He doesn't have recolection of anything that caused it. tylenol didn't help and went to ER for tordal and mm relaxors and afew days later, it didn't better. Xray the 2nd time in ER and had oxycodone and neurotin and gabapentin and baclofen and that helped. Initally the pain was so bad, he was crawling to the bathroom and could barely get up. Pt saw Dr. Ahumada and he got an injection and he has been signifcantly better after this whre it is onlyl ow level pain. He saw a specialist in [place]. Pain started in [place] and pretty soon after it was burning and painful in post thigh & lat bush and into dorsum of foot. Pt is hoping to go to [place] in the fall w/his . In the last couple weeks, he has seen Dr. Casiano for acupuncture. He has been off the oxy for a month. He has been off all meds for about 1- 2 weeks. he feels tired a little. 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 Pt is using a lumbar cusion behind his back . Pt reports if he stands any period of time, he starts to feel the pain as it just starts to ache a little. Pt reports his typical lifestyle is pretty sedentary. He has not riden his bike since this either. Prior Treatments and Tests Xray: IMPRESSION: Grade 1 isthmic spondylolisthesis at L5-S1, stable MRI lumbar: IMPRESSION: 1. At L5-S1, there are bilateral L5 pars defects, mild anterolisthesis of L5 on S1, and moderate to severe left foraminal narrowing, with left foraminal L5 nerve root impingement. 2. Mild multilevel facet arthropathy. Injection on 11/12/22 Treatment Goals Patient/Caregiver Goals be able to walk in [place] in afew months PT-OP-C Subjective Start: 12/17/22 11:56 Freq: Status: Active Protocol: Document 01/12/23 08:19 [facility] (Rec: 01/12/23 12:07 [facility] [id number]) OP-PT Subjective Patient Comments Patient Comments Pt reprots he is working on walking. Longest walk has been 2 miles. SOme fatigue in L leg PT-OP-D Balance Start: 12/17/22 11:56 Freq: Status: Active Protocol: Document 12/21/22 11:53 [facility] (Rec: 12/21/22 13:39 [id number]) Balance Tests Single Limb Standing Single Limb- Right 6 sec a lot of deviation Single Limb- Left 4 sec a lot of deviation PT-OP-G Mobility & Gait Start: 12/17/22 11:56 Freq: Status: Active Protocol: Document 12/21/22 11:53 [facility] (Rec: 12/21/22 13:39 [facility] [id number]) OP Gait Assessment Comments Gait Comments amb w/ lat lean over LLE PT-OP-J Posture/Palpation/Skin Start: 12/17/22 11:56 Freq: Status: Active Protocol: Document 12/21/22 11:53 [facility] (Rec: 12/21/22 13:39 [facility] [id number]) Posture Evaluation Blaine Postural Classification System Blaine Postural Classifications Posterior/Anterior Lumbar Protective Mechanism Left AP 0 Lumbar Protective Mechanism Right AP 0 Lumbar Protective Mechanism Left PA 0 Lumbar Protective Mechanism Right PA 1 PT-OP-K Range of Motion Start: 12/17/22 11:56 Freq: Status: Active Protocol: Document 12/21/22 11:53 [facility] (Rec: 12/21/22 13:39 [facility] [id number]) Lumbar Spine Range of Motion Lumbar Spine Active Percentage Flexion 50 Extension 60 Rotation Left 50 Rotation Right 50 Lateral Flexion Left 75 Lateral Flexion Right 75 Comments some discomfort w/ext PT-OP-M Strength Start: 12/17/22 11:56 Freq: Status: Active Protocol: Document 12/21/22 11:53 [facility] (Rec: 12/21/22 13:39 [facility] [id number]) Hip Strength Hip Manual Muscle Testing Right Flexion (L2) 4 Good External Rotation 5 Normal Internal Rotation 5 Normal Left Flexion (L2) 4- Good- External Rotation 4- Good- Internal Rotation 4- Good- Knee Strength Knee Manual Muscle Testing Right Flexion (S2) 5 Normal Extension (L3) 5 Normal Left Flexion (S2) 5 Normal Extension (L3) 4 Good Ankle/Foot Strength Ankle and Foot Manual Muscle Testing Right Dorsiflexion (L4) 5 Normal Left Dorsiflexion (L4) 4 Good PT-OP-Q Treatments Start: 12/17/22 11:56 Freq: Status: Active Protocol: Document 01/12/23 08:19 [facility] (Rec: 01/12/23 12:07 [facility] [id number]) Therapeutic Exercises Supine Exercises isometric Supine Exercise Name DL flex isometric Side bilateral Reps/Minutes 30 sec LTR Side bilateral Reps/Minutes 10 Comments cues for segmental bridge Side bilateral Reps/Minutes 5 sec x10; 5 sec x5 w/tband around knees Manual Therapy Treatment Soft Tissue Mobilization hip Body Location L glutes Mobilization Type Sustained Pressure Intensity/Depth Moderate Body Position Prone Comments w/hip IR/ER Joint Mobilizations hip Joint L Direction on axis ER FM Body Position Prone Comments prolonged hold at end range Neuro Re-Education Treatment Other Activities facilitation Reps/Duration 5 min Comments DL R diagonal press sustained holds w/chin tuck and self chop pattern & foam roll under bottom 2 Self-Care/Home Management Treatment Education Other Education 17 min: edu on gradual inc w/ walking and gradually inc hills. Do not start big hills until worked through [employer]. Edu re: his jun core stability. edu how pain inhibits the stabilizors. Further edu on anatomy of back and discussed pars defect and anatomy of vertebra. Discussed n impingmeent vs radiating pain PT-OP-T Assessment and Plan Start: 12/17/22 11:56 Freq: Status: Active Protocol: Document 01/12/23 08:19 [facility] (Rec: 01/12/23 12:07 [facility] [id number]) Physical Therapy Assessment Goals strength Short Term Goal (STG) Pt will be indep w/HEP STG Duration 01/30 Penitentiary Goal (LTG) Pt will score at least 3/5 on LPM and 5/5 on all LE MMT to show improved stabiltiy in order to dec instances of pain . LTG Duration 03/15 activities Radiographer Goal (LTG) Pt will be able to go for walks w/o inc pain (at least 3 miles) LTG Duration 03/02 NAN Impairment 14/50 Short Term Goal (STG) Pt iwll improve score to no greater than 9/50 to show imrpoved functional ability. STG Duration 01/27/23 Penitentiary Goal (LTG) Pt will improve score to no greater than 3/50 to show imrpoved functional ability. LTG Duration 03/10/23 Assessment Summary Assessment Pt had improved L hip ER after manual treatment. He did note soreness and was encouraged to ice after. He had improved hip flexion strength after PNF faciltaiton into core. Edu to pt how his core mm are not firing well and pt able to do exercises w/PT cues Physical Therapy Plan Next Visit Focus/Plan Next Note Type Treatment Note Next Visit Plan review exercises; give hip stretches, PNF for core stability, cont to work on hip and check pelvis level
--- NOTE | 2023-01-14 09:53 | PT.OTN ---
Current Diagnoses Dorsalgia, unspecified (01/14/23) Difficulty in walking, not elsewhere classified (01/14/23) Abnormal posture (01/14/23) Weakness (01/14/23) Physical Therapy Treatment Note PT-OP-A Visit Information Start: 12/17/22 11:56 Freq: Status: Active Protocol: Document 01/14/23 07:28 [facility] (Rec: 01/14/23 09:53 [facility] [id number]) Out-Patient Physical Therapy Visit Information Visit Information Visit Type Treatment Note Visit Note 09/25 Student PT Lora Lemus participated in treatment session Visit Start Time 07:31 Visit Stop Time 08:16 Total Visit Minutes 45 Visit Number 3 Number of AGRICULTURE MECHANIC Visits 0 PT-OP-B Current Condition Start: 12/17/22 11:56 Freq: Status: Active Protocol: Document 12/21/22 11:53 [facility] (Rec: 12/21/22 13:39 [facility] [id number]) Current Condition History of Current Condition Onset Date 2 months ago Current Complaints LBP and L leg pain History of Current Condition Pt reports he has not had any back issues or concerns ever, but around his 72th bday. He doesn't have recolection of anything that caused it. tylenol didn't help and went to ER for tordal and mm relaxors and afew days later, it didn't better. Xray the 2nd time in ER and had oxycodone and neurotin and gabapentin and baclofen and that helped. Initally the pain was so bad, he was crawling to the bathroom and could barely get up. Pt saw Dr. Ahumada and he got an injection and he has been signifcantly better after this whre it is onlyl ow level pain. He saw a specialist in [place]. Pain started in [place] and pretty soon after it was burning and painful in post thigh & lat bush and into dorsum of foot. Pt is hoping to go to [place] in the fall w/his . In the last couple weeks, he has seen Dr. Casiano for acupuncture. He has been off the oxy for a month. He has been off all meds for about 1- 2 weeks. he feels tired a little. 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 Pt is using a lumbar cusion behind his back . Pt reports if he stands any period of time, he starts to feel the pain as it just starts to ache a little. Pt reports his typical lifestyle is pretty sedentary. He has not riden his bike since this either. Prior Treatments and Tests Xray: IMPRESSION: Grade 1 isthmic spondylolisthesis at L5-S1, stable MRI lumbar: IMPRESSION: 1. At L5-S1, there are bilateral L5 pars defects, mild anterolisthesis of L5 on S1, and moderate to severe left foraminal narrowing, with left foraminal L5 nerve root impingement. 2. Mild multilevel facet arthropathy. Injection on 11/12/22 Treatment Goals Patient/Caregiver Goals be able to walk in [place] in afew months PT-OP-C Subjective Start: 12/17/22 11:56 Freq: Status: Active Protocol: Document 01/14/23 07:28 [id number] Subjective Patient Comments Patient Comments Pt reprots he rode his bike a short bit yesterday and it went well PT-OP-D Balance Start: 12/17/22 11:56 Freq: Status: Active Protocol: Document 12/21/22 11:53 [facility] (Rec: 12/21/22 13:39 [facility] [id number]) Balance Tests Single Limb Standing Single Limb- Right 6 sec a lot of deviation Single Limb- Left 4 sec a lot of deviation PT-OP-G Mobility & Gait Start: 12/17/22 11:56 Freq: Status: Active Protocol: Document 12/21/22 11:53 [facility] (Rec: 12/21/22 13:39 [facility] [id number]) OP Gait Assessment Comments Gait Comments amb w/ lat lean over LLE PT-OP-J Posture/Palpation/Skin Start: 12/17/22 11:56 Freq: Status: Active Protocol: Document 12/21/22 11:53 [facility] (Rec: 12/21/22 13:39 [facility] [id number]) Posture Evaluation Blaine Postural Classification System Blaine Postural Classifications Posterior/Anterior Lumbar Protective Mechanism Left AP 0 Lumbar Protective Mechanism Right AP 0 Lumbar Protective Mechanism Left PA 0 Lumbar Protective Mechanism Right PA 1 PT-OP-K Range of Motion Start: 12/17/22 11:56 Freq: Status: Active Protocol: Document 12/21/22 11:53 [facility] (Rec: 12/21/22 13:39 [facility] [id number]) Lumbar Spine Range of Motion Lumbar Spine Active Percentage Flexion 50 Extension 60 Rotation Left 50 Rotation Right 50 Lateral Flexion Left 75 Lateral Flexion Right 75 Comments some discomfort w/ext PT-OP-M Strength Start: 12/17/22 11:56 Freq: Status: Active Protocol: Document 12/21/22 11:53 [facility] (Rec: 12/21/22 13:39 [facility] [id number]) Hip Strength Hip Manual Muscle Testing Right Flexion (L2) 4 Good External Rotation 5 Normal Internal Rotation 5 Normal Left Flexion (L2) 4- Good- External Rotation 4- Good- Internal Rotation 4- Good- Knee Strength Knee Manual Muscle Testing Right Flexion (S2) 5 Normal Extension (L3) 5 Normal Left Flexion (S2) 5 Normal Extension (L3) 4 Good Ankle/Foot Strength Ankle and Foot Manual Muscle Testing Right Dorsiflexion (L4) 5 Normal Left Dorsiflexion (L4) 4 Good PT-OP-Q Treatments Start: 12/17/22 11:56 Freq: Status: Active Protocol: Document 01/14/23 07:28 [facility] (Rec: 01/14/23 09:53 [facility] [id number]) Therapeutic Exercises Supine Exercises isometric Supine Exercise Name DL flex isometric Side bilateral Reps/Minutes 30 sec LTR Side bilateral Reps/Minutes 8 Comments cues for segmental bridge Side bilateral Equipment Used orange band at knees Reps/Minutes 5 sec x10 Sitting Exercises stretches Sitting Exercise Name 1.HS 2. figure 4 Side bilateral Reps/Minutes 1 min ea Comments inc time for cues Manual Therapy Treatment Soft Tissue Mobilization thigh Body Location L add, HS Mobilization Type Rolling,Strumming Intensity/Depth Moderate Body Position Hooklying Comments FM w/ER and AAROM HS stretch hip Body Location L glutes Mobilization Type Sustained Pressure Intensity/Depth Moderate Body Position Prone Comments w/hip IR/ER Joint Mobilizations hip Joint L Direction on axis ER FM Body Position Hooklying Comments prolonged hold at end range PT-OP-T Assessment and Plan Start: 12/17/22 11:56 Freq: Status: Active Protocol: Document 01/14/23 07:28 [facility] (Rec: 01/14/23 09:53 [facility] [id number]) Physical Therapy Assessment Goals strength Short Term Goal (STG) Pt will be indep w/HEP STG Duration 01/30 [facility] Goal (LTG) Pt will score at least 3/5 on LPM and 5/5 on all LE MMT to show improved stabiltiy in order to dec instances of pain . LTG Duration 03/15 activities [facility] Goal (LTG) Pt will be able to go for walks w/o inc pain (at least 3 miles) LTG Duration 03/02 NAN Impairment 14/50 Short Term Goal (STG) Pt iwll improve score to no greater than 9/50 to show imrpoved functional ability. STG Duration 01/27/23 Roofing Apprentice Goal (LTG) Pt will improve score to no greater than 3/50 to show imrpoved functional ability. LTG Duration 03/10/23 Assessment Summary Assessment Pt did well with exercises w/ cues throughout. He needed cues for set up and performance. He had improved hip ER and flex w/manual treatment today. Physical Therapy Plan Frequency and Duration Frequency of Treatment 1-2x/wk Duration of treatment (weeks) 12 Plan of Care Start Date 12/21/22 Plan of Care End Date 03/15/23 Next Visit Focus/Plan Next Note Type Treatment Note Next Visit Plan review exercises and advance as able; PNF for core stability, cont to work on hip and check pelvis level
--- NOTE | 2023-01-18 15:20 | PT.OTN ---
Current Diagnoses Dorsalgia, unspecified (01/18/23) Difficulty in walking, not elsewhere classified (01/18/23) Abnormal posture (01/18/23) Weakness (01/18/23) Physical Therapy Treatment Note PT-OP-A Visit Information Start: 12/17/22 11:56 Freq: Status: Active Protocol: Document 01/18/23 14:21 [facility] (Rec: 01/18/23 15:20 [facility] [id number]) Out-Patient Physical Therapy Visit Information Visit Information Visit Type Treatment Note Visit Note 10/26 Visit Start Time 14:20 Visit Stop Time 15:02 Total Visit Minutes 42 Visit Number 4 Number of SURVEY RESEARCH MANAGER Visits 0 PT-OP-B Current Condition Start: 12/17/22 11:56 Freq: Status: Active Protocol: Document 12/21/22 11:53 [facility] (Rec: 12/21/22 13:39 [facility] [id number]) Current Condition History of Current Condition Onset Date 2 months ago Current Complaints LBP and L leg pain History of Current Condition Pt reports he has not had any back issues or concerns ever, but around his 72th bday. He doesn't have recolection of anything that caused it. tylenol didn't help and went to ER for tordal and mm relaxors and afew days later, it didn't better. Xray the 2nd time in ER and had oxycodone and neurotin and gabapentin and baclofen and that helped. Initally the pain was so bad, he was crawling to the bathroom and could barely get up. Pt saw Dr. Ahumada and he got an injection and he has been signifcantly better after this whre it is onlyl ow level pain. He saw a specialist in [place]. Pain started in [place] and pretty soon after it was burning and painful in post thigh & lat bush and into dorsum of foot. Pt is hoping to go to [place] in the fall w/his . In the last couple weeks, he has seen Dr. Casiano for acupuncture. He has been off the oxy for a month. He has been off all meds for about 1- 2 weeks. he feels tired a little. 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 Pt is using a lumbar cusion behind his back . Pt reports if he stands any period of time, he starts to feel the pain as it just starts to ache a little. Pt reports his typical lifestyle is pretty sedentary. He has not riden his bike since this either. Prior Treatments and Tests Xray: IMPRESSION: Grade 1 isthmic spondylolisthesis at L5-S1, stable MRI lumbar: IMPRESSION: 1. At L5-S1, there are bilateral L5 pars defects, mild anterolisthesis of L5 on S1, and moderate to severe left foraminal narrowing, with left foraminal L5 nerve root impingement. 2. Mild multilevel facet arthropathy. Injection on 11/12/22 Treatment Goals Patient/Caregiver Goals be able to walk in [place] in afew months PT-OP-C Subjective Start: 12/17/22 11:56 Freq: Status: Active Protocol: Document 01/18/23 14:21 [facility] (Rec: 01/18/23 15:20 [facility] [id number]) OP-PT Subjective Patient Comments Patient Comments Pt reports he hasn't done a lot of his PT exercises but biked about 10 miles w/o pain. Pt did stand at the [facility] yesterday for a BBQ and did okay. He was putting together a chair and table and did a lot of bending over and his back held up. PT-OP-D Balance Start: 12/17/22 11:56 Freq: Status: Active Protocol: Document 12/21/22 11:53 [facility] (Rec: 12/21/22 13:39 [facility] [id number]) Balance Tests Single Limb Standing Single Limb- Right 6 sec a lot of deviation Single Limb- Left 4 sec a lot of deviation PT-OP-G Mobility & Gait Start: 12/17/22 11:56 Freq: Status: Active Protocol: Document 12/21/22 11:53 [facility] (Rec: 12/21/22 13:39 [facility] [id number]) OP Gait Assessment Comments Gait Comments amb w/ lat lean over LLE PT-OP-J Posture/Palpation/Skin Start: 12/17/22 11:56 Freq: Status: Active Protocol: Document 12/21/22 11:53 [facility] (Rec: 12/21/22 13:39 [facility] [id number]) Posture Evaluation Blaine Postural Classification System Blaine Postural Classifications Posterior/Anterior Lumbar Protective Mechanism Left AP 0 Lumbar Protective Mechanism Right AP 0 Lumbar Protective Mechanism Left PA 0 Lumbar Protective Mechanism Right PA 1 PT-OP-K Range of Motion Start: 12/17/22 11:56 Freq: Status: Active Protocol: Document 12/21/22 11:53 [facility] (Rec: 12/21/22 13:39 [facility] [id number]) Lumbar Spine Range of Motion Lumbar Spine Active Percentage Flexion 50 Extension 60 Rotation Left 50 Rotation Right 50 Lateral Flexion Left 75 Lateral Flexion Right 75 Comments some discomfort w/ext PT-OP-M Strength Start: 12/17/22 11:56 Freq: Status: Active Protocol: Document 12/21/22 11:53 [facility] (Rec: 12/21/22 13:39 [facility] [id number]) Hip Strength Hip Manual Muscle Testing Right Flexion (L2) 4 Good External Rotation 5 Normal Internal Rotation 5 Normal Left Flexion (L2) 4- Good- External Rotation 4- Good- Internal Rotation 4- Good- Knee Strength Knee Manual Muscle Testing Right Flexion (S2) 5 Normal Extension (L3) 5 Normal Left Flexion (S2) 5 Normal Extension (L3) 4 Good Ankle/Foot Strength Ankle and Foot Manual Muscle Testing Right Dorsiflexion (L4) 5 Normal Left Dorsiflexion (L4) 4 Good PT-OP-Q Treatments Start: 12/17/22 11:56 Freq: Status: Active Protocol: Document 01/18/23 14:21 [facility] (Rec: 01/18/23 15:20 [facility] [id number]) Therapeutic Exercises Supine Exercises isometric Supine Exercise Name DL flex isometric Side bilateral Reps/Minutes 30 sec LTR Side bilateral Reps/Minutes 8 Comments cues for segmental bridge Supine Exercise Name alt marches Side bilateral Reps/Minutes 10 ea Comments cues especially for RLE lift Sitting Exercises stretches Sitting Exercise Name 1.HS 2. figure 4 Side bilateral Reps/Minutes 1 min ea Comments inc time for cues Manual Therapy Treatment Joint Mobilizations sacrum Joint L caudal & UPA FM innominate Joint L caudal & ER FM hip Joint L Direction on axis ER FM & abd FM Body Position Prone Comments prolonged hold at end range PT-OP-T Assessment and Plan Start: 12/17/22 11:56 Freq: Status: Active Protocol: Document 01/18/23 14:21 [facility] (Rec: 01/18/23 15:20 [facility] [id number]) Physical Therapy Assessment Goals strength Short Term Goal (STG) Pt will be indep w/HEP STG Duration 01/30 Case Technician Goal (LTG) Pt will score at least 3/5 on LPM and 5/5 on all LE MMT to show improved stabiltiy in order to dec instances of pain . LTG Duration 03/15 activities Assisted Goal (LTG) Pt will be able to go for walks w/o inc pain (at least 3 miles) LTG Duration 03/02 NAN Impairment 14/50 Short Term Goal (STG) Pt iwll improve score to no greater than 9/50 to show imrpoved functional ability. STG Duration 01/27/23 Assisted Goal (LTG) Pt will improve score to no greater than 3/50 to show imrpoved functional ability. LTG Duration 03/10/23 Assessment Summary Assessment Pt has L iliac crest heigher than R which improved w/manual to movre level. Improved hip ER in firgure 4 after manual. Physical Therapy Plan Frequency and Duration Frequency of Treatment 1-2x/wk Duration of treatment (weeks) 12 Plan of Care Start Date 12/21/22 Plan of Care End Date 03/15/23 Next Visit Focus/Plan Next Note Type Treatment Note Next Visit Plan review exercises and advance as able; PNF for core stability, cont to work on hip and pelvis/lumbar mobility
--- NOTE | 2023-01-25 10:31 | PT.OTN ---
Current Diagnoses Dorsalgia, unspecified (01/25/23) Difficulty in walking, not elsewhere classified (01/25/23) Abnormal posture (01/25/23) Weakness (01/25/23) Physical Therapy Treatment Note PT-OP-A Visit Information Start: 12/17/22 11:56 Freq: Status: Active Protocol: Document 01/25/23 09:40 [facility] (Rec: 01/25/23 10:26 [facility] [id number]) Out-Patient Physical Therapy Visit Information Visit Information Visit Type Treatment Note Visit Note 11/25 Visit Start Time 09:45 Visit Stop Time 10:25 Total Visit Minutes 40 Visit Number 5 Number of CORNER BRACE BLOCK MACHINE OPERATOR Visits 1 PT-OP-B Current Condition Start: 12/17/22 11:56 Freq: Status: Active Protocol: Document 12/21/22 11:53 [facility] (Rec: 12/21/22 13:39 [facility] [id number]) Current Condition History of Current Condition Onset Date 2 months ago Current Complaints LBP and L leg pain History of Current Condition Pt reports he has not had any back issues or concerns ever, but around his 72th bday. He doesn't have recolection of anything that caused it. tylenol didn't help and went to ER for tordal and mm relaxors and afew days later, it didn't better. Xray the 2nd time in ER and had oxycodone and neurotin and gabapentin and baclofen and that helped. Initally the pain was so bad, he was crawling to the bathroom and could barely get up. Pt saw Dr. Ahumada and he got an injection and he has been signifcantly better after this whre it is onlyl ow level pain. He saw a specialist in [place]. Pain started in [place] and pretty soon after it was burning and painful in post thigh & lat bush and into dorsum of foot. Pt is hoping to go to [place] in the fall w/his . In the last couple weeks, he has seen Dr. Casiano for acupuncture. He has been off the oxy for a month. He has been off all meds for about 1- 2 weeks. he feels tired a little. 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 Pt is using a lumbar cusion behind his back . Pt reports if he stands any period of time, he starts to feel the pain as it just starts to ache a little. Pt reports his typical lifestyle is pretty sedentary. He has not riden his bike since this either. Prior Treatments and Tests Xray: IMPRESSION: Grade 1 isthmic spondylolisthesis at L5-S1, stable MRI lumbar: IMPRESSION: 1. At L5-S1, there are bilateral L5 pars defects, mild anterolisthesis of L5 on S1, and moderate to severe left foraminal narrowing, with left foraminal L5 nerve root impingement. 2. Mild multilevel facet arthropathy. Injection on 11/12/22 Treatment Goals Patient/Caregiver Goals be able to walk in [place] in afew months PT-OP-C Subjective Start: 12/17/22 11:56 Freq: Status: Active Protocol: Document 01/25/23 09:40 [facility] (Rec: 01/25/23 10:26 [facility] [id number]) OP-PT Subjective Patient Comments Patient Comments Pt states he went biking a bit and went to [place] and walked a small incline without issue. He states he did some of his stretches. He was entertaining standing over the grill. Nothing causes discomfort in general now. PT-OP-D Balance Start: 12/17/22 11:56 Freq: Status: Active Protocol: Document 12/21/22 11:53 [facility] (Rec: 12/21/22 13:39 [facility] [id number]) Balance Tests Single Limb Standing Single Limb- Right 6 sec a lot of deviation Single Limb- Left 4 sec a lot of deviation PT-OP-G Mobility & Gait Start: 12/17/22 11:56 Freq: Status: Active Protocol: Document 12/21/22 11:53 [facility] (Rec: 12/21/22 13:39 [facility] [id number]) OP Gait Assessment Comments Gait Comments amb w/ lat lean over LLE PT-OP-J Posture/Palpation/Skin Start: 12/17/22 11:56 Freq: Status: Active Protocol: Document 12/21/22 11:53 [facility] (Rec: 12/21/22 13:39 [facility] [id number]) Posture Evaluation Blaine Postural Classification System Blaine Postural Classifications Posterior/Anterior Lumbar Protective Mechanism Left AP 0 Lumbar Protective Mechanism Right AP 0 Lumbar Protective Mechanism Left PA 0 Lumbar Protective Mechanism Right PA 1 PT-OP-K Range of Motion Start: 12/17/22 11:56 Freq: Status: Active Protocol: Document 12/21/22 11:53 [facility] (Rec: 12/21/22 13:39 [facility] [id number]) Lumbar Spine Range of Motion Lumbar Spine Active Percentage Flexion 50 Extension 60 Rotation Left 50 Rotation Right 50 Lateral Flexion Left 75 Lateral Flexion Right 75 Comments some discomfort w/ext PT-OP-M Strength Start: 12/17/22 11:56 Freq: Status: Active Protocol: Document 12/21/22 11:53 [facility] (Rec: 12/21/22 13:39 [facility] [id number]) Hip Strength Hip Manual Muscle Testing Right Flexion (L2) 4 Good External Rotation 5 Normal Internal Rotation 5 Normal Left Flexion (L2) 4- Good- External Rotation 4- Good- Internal Rotation 4- Good- Knee Strength Knee Manual Muscle Testing Right Flexion (S2) 5 Normal Extension (L3) 5 Normal Left Flexion (S2) 5 Normal Extension (L3) 4 Good Ankle/Foot Strength Ankle and Foot Manual Muscle Testing Right Dorsiflexion (L4) 5 Normal Left Dorsiflexion (L4) 4 Good PT-OP-Q Treatments Start: 12/17/22 11:56 Freq: Status: Active Protocol: Document 01/25/23 09:40 [facility] (Rec: 01/25/23 10:26 [facility] [id number]) Therapeutic Exercises Supine Exercises isometric Supine Exercise Name DL flex isometric Side bilateral Reps/Minutes 30 sec Comments cues for no breathholding LTR Side bilateral Reps/Minutes 8 Comments cues for segmental, pain-free range bridge Supine Exercise Name 1. bridging w/ TB 2. alt marches Side bilateral Reps/Minutes 1.15 x 5SH 2. 10 ea Comments cues no breathholding and especially for RLE lift Sitting Exercises stretches Sitting Exercise Name 1.HS 2. figure 4 - supine today Side bilateral Reps/Minutes 1 min ea Comments inc time for cues Other Exercises Quadruped Other Exercise Name 1. Cat/Cow 2. Alt UE lifts Side bilateral Reps/Minutes x10 ea Comments cues for set up, weight shifting Manual Therapy Treatment Soft Tissue Mobilization hip Body Location L glutes, piriformis Mobilization Type Sustained Pressure Intensity/Depth Moderate Body Position Prone Comments w/hip IR/ER Self-Care/Home Management Treatment Education Other Education HEP review Educated pt on core A&P of Transverse abdominis and importance of not breathholding with core training/strengthening. PT-OP-T Assessment and Plan Start: 12/17/22 11:56 Freq: Status: Active Protocol: Document 01/25/23 09:40 [facility] (Rec: 01/25/23 10:26 [facility] [id number]) Physical Therapy Assessment Impairments Impairments Activity Tolerance,Balance, Functional Activities, Functional Mobility,Gait,Pain, Posture,ROM,Soft Tissue Mobility,Strength Goals strength Short Term Goal (STG) Pt will be indep w/HEP STG Duration 01/30 Nursing Home Goal (LTG) Pt will score at least 3/5 on LPM and 5/5 on all LE MMT to show improved stabiltiy in order to dec instances of pain . LTG Duration 03/15 activities Nursing Home Goal (LTG) Pt will be able to go for walks w/o inc pain (at least 3 miles) LTG Duration 03/02 NAN Impairment 14/50 Short Term Goal (STG) Pt iwll improve score to no greater than 9/50 to show imrpoved functional ability. STG Duration 01/27/23 Nursing Home Goal (LTG) Pt will improve score to no greater than 3/50 to show imrpoved functional ability. LTG Duration 03/10/23 Assessment Summary Assessment Treatment focus on HEP review. Scott requires consistent cues for not holding his breath. He demonstrates improved self- awareness of breathholding with alternating upper extremity lifts in quadruped. Palpable tightness to L piriformis improves w/ manual. Educated pt on core A&P of Transverse abdominis and importance of not breathholding with core training/strengthening. Encouraged pt in incorporating HEP at home. Physical Therapy Plan Frequency and Duration Frequency of Treatment 1-2x/wk Duration of treatment (weeks) 12 Plan of Care Start Date 12/21/22 Plan of Care End Date 03/15/23 Therapeutic Interventions Therapeutic Interventions Balance Training,Gait Training ,Home Exercise Program,Joint Mobilizations,Manual Therapy, Neuromuscular Re-education, Orthotic/Prosthetic Management ,Patient/Caregiver Education, Self-Care/Home Management,Soft Tissue Mobilization,Taping, Therapeutic Activities, Therapeutic Exercises Modalities Cold Pack/Ice Massage,Electric Stimulation,Hot Packs, Ultrasound Next Visit Focus/Plan Next Note Type Treatment Note Next Visit Plan Consider adding Cat/Cow and Alt UE lifts to HEP. POC: review exercises and advance as able; PNF for core stability, cont to work on hip and pelvis/lumbar mobility
--- NOTE | 2023-01-28 18:00 | PT.OTN ---
Addendum entered and electronically signed by Rose Mary Olmos PT 01/28/23 18:06: PT direct supervision and direction to PT student. Original Note: Current Diagnoses Dorsalgia, unspecified (01/28/23) Difficulty in walking, not elsewhere classified (01/28/23) Abnormal posture (01/28/23) Weakness (01/28/23) Physical Therapy Treatment Note PT-OP-A Visit Information Start: 12/17/22 11:56 Freq: Status: Active Protocol: Document 01/28/23 09:53 (Rec: 01/28/23 10:00 [id number]) Out-Patient Physical Therapy Visit Information Visit Information Visit Type Treatment Note Visit Note 12/26 Visit Start Time 09:03 Visit Stop Time 09:50 Total Visit Minutes 47 Visit Number 6 PT-OP-B Current Condition Start: 12/17/22 11:56 Freq: Status: Active Protocol: Document 12/21/22 11:53 [facility] (Rec: 12/21/22 13:39 [facility] [id number]) Current Condition History of Current Condition Onset Date 2 months ago Current Complaints LBP and L leg pain History of Current Condition Pt reports he has not had any back issues or concerns ever, but around his 72th bday. He doesn't have recolection of anything that caused it. tylenol didn't help and went to ER for tordal and mm relaxors and afew days later, it didn't better. Xray the 2nd time in ER and had oxycodone and neurotin and gabapentin and baclofen and that helped. Initally the pain was so bad, he was crawling to the bathroom and could barely get up. Pt saw Dr. Ahumada and he got an injection and he has been signifcantly better after this whre it is onlyl ow level pain. He saw a specialist in [place]. Pain started in LB and pretty soon after it was burning and painful in post thigh & lat bush and into dorsum of foot. Pt is hoping to go to [place] in the fall w/his . In the last couple weeks, he has seen Dr. Casiano for acupuncture. He has been off the oxy for a month. He has been off all meds for about 1- 2 weeks. he feels tired a little. 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 Pt is using a lumbar cusion behind his back . Pt reports if he stands any period of time, he starts to feel the pain as it just starts to ache a little. Pt reports his typical lifestyle is pretty sedentary. He has not riden his bike since this either. Prior Treatments and Tests Xray: IMPRESSION: Grade 1 isthmic spondylolisthesis at L5-S1, stable MRI lumbar: IMPRESSION: 1. At L5-S1, there are bilateral L5 pars defects, mild anterolisthesis of L5 on S1, and moderate to severe left foraminal narrowing, with left foraminal L5 nerve root impingement. 2. Mild multilevel facet arthropathy. Injection on 11/12/22 Treatment Goals Patient/Caregiver Goals be able to walk in [place] in afew months PT-OP-C Subjective Start: 12/17/22 11:56 Freq: Status: Active Protocol: Document 01/28/23 09:53 (Rec: 01/28/23 10:00 [id number]) OP-PT Subjective Patient Comments Patient Comments pt had his eyes dialated at the eye doctor the previous day. This made him feel a little wobbly while walking. He did parts picker his 25lb cat and did feel a twinge in his back. PT-OP-D Balance Start: 12/17/22 11:56 Freq: Status: Active Protocol: Document 12/21/22 11:53 [facility] (Rec: 12/21/22 13:39 [facility] [id number]) Balance Tests Single Limb Standing Single Limb- Right 6 sec a lot of deviation Single Limb- Left 4 sec a lot of deviation PT-OP-G Mobility & Gait Start: 12/17/22 11:56 Freq: Status: Active Protocol: Document 12/21/22 11:53 [facility] (Rec: 12/21/22 13:39 [facility] [id number]) OP Gait Assessment Comments Gait Comments amb w/ lat lean over LLE PT-OP-J Posture/Palpation/Skin Start: 12/17/22 11:56 Freq: Status: Active Protocol: Document 12/21/22 11:53 [facility] (Rec: 12/21/22 13:39 [facility] [id number]) Posture Evaluation Blaine Postural Classification System Blaine Postural Classifications Posterior/Anterior Lumbar Protective Mechanism Left AP 0 Lumbar Protective Mechanism Right AP 0 Lumbar Protective Mechanism Left PA 0 Lumbar Protective Mechanism Right PA 1 PT-OP-K Range of Motion Start: 12/17/22 11:56 Freq: Status: Active Protocol: Document 12/21/22 11:53 [facility] (Rec: 12/21/22 13:39 [facility] [id number]) Lumbar Spine Range of Motion Lumbar Spine Active Percentage Flexion 50 Extension 60 Rotation Left 50 Rotation Right 50 Lateral Flexion Left 75 Lateral Flexion Right 75 Comments some discomfort w/ext PT-OP-M Strength Start: 12/17/22 11:56 Freq: Status: Active Protocol: Document 12/21/22 11:53 [facility] (Rec: 12/21/22 13:39 [facility] [id number]) Hip Strength Hip Manual Muscle Testing Right Flexion (L2) 4 Good External Rotation 5 Normal Internal Rotation 5 Normal Left Flexion (L2) 4- Good- External Rotation 4- Good- Internal Rotation 4- Good- Knee Strength Knee Manual Muscle Testing Right Flexion (S2) 5 Normal Extension (L3) 5 Normal Left Flexion (S2) 5 Normal Extension (L3) 4 Good Ankle/Foot Strength Ankle and Foot Manual Muscle Testing Right Dorsiflexion (L4) 5 Normal Left Dorsiflexion (L4) 4 Good PT-OP-Q Treatments Start: 12/17/22 11:56 Freq: Status: Active Protocol: Document 01/28/23 09:53 (Rec: 01/28/23 10:00 [id number]) Therapeutic Exercises Sitting Exercises stretches Sitting Exercise Name 1.HS 2. figure 4 - seated Side bilateral Reps/Minutes 1 min ea Comments inc time for cues. reviewed positioning Standing Exercises Wall standing Standing Exercise Name posture on wall, keep back flush w/ wall, arms out w/ shrug Side bilateral Reps/Minutes 3min Comments max cues for posture and head position. Balance Standing Exercise Name 1. slow marching w/ 5 sec hold . 2. SLS @mirror using counter Side bilateral Equipment Used @ counter min A as needed Reps/Minutes 12x ea Comments max cues for head up, posture and glute engagement wt shifting Standing Exercise Name wide tandem gait stance. wt shifting from frwd leg to back . Side bilateral Equipment Used @counter Reps/Minutes 12x Comments focusing on L fwrd Manual Therapy Treatment Soft Tissue Mobilization hip Body Location L piriformis, ADD, Hip flexor Mobilization Type Sustained Pressure Intensity/Depth Moderate Body Position Prone Comments w/hip IR/ER PT-OP-T Assessment and Plan Start: 12/17/22 11:56 Freq: Status: Active Protocol: Document 01/28/23 09:53 (Rec: 01/28/23 10:00 [id number]) Physical Therapy Assessment Goals strength Short Term Goal (STG) Pt will be indep w/HEP STG Duration 01/30 Trimmer Machine Goal (LTG) Pt will score at least 3/5 on LPM and 5/5 on all LE MMT to show improved stabiltiy in order to dec instances of pain . LTG Duration 03/15 activities Trimmer Machine Goal (LTG) Pt will be able to go for walks w/o inc pain (at least 3 miles) LTG Duration 03/02 NAN Impairment 14/50 Short Term Goal (STG) Pt iwll improve score to no greater than 9/50 to show imrpoved functional ability. STG Duration 01/27/23 Skilled Nursing Goal (LTG) Pt will improve score to no greater than 3/50 to show imrpoved functional ability. LTG Duration 03/10/23 Assessment Summary Assessment pt had difficulty w/ SL balance. support from counter/ wall was needed for success. LLE is far more unstable than the RLE. He is able to get his LLE into a seated figure 4 w/ more ease than the first time he attmepted though it is still limited. He has been doing his piriformis stretches at home, but admits not doing his HS stretch. Following manual he had increased ER of the hip and he was able to get into a figure 4 position w/ even more ease. Physical Therapy Plan Frequency and Duration Frequency of Treatment 1-2x/wk Duration of treatment (weeks) 12 Plan of Care Start Date 12/21/22 Plan of Care End Date 03/15/23 Next Visit Focus/Plan Next Note Type Treatment Note Next Visit Plan Review: Posture at wall, SL balance, Cat/Cow and Alt UE lifts. update HEP. advance exercises as able; PNF for core stability, cont to work on hip and pelvis/lumbar mobility
--- NOTE | 2023-02-01 10:32 | PT.OTN ---
Current Diagnoses Dorsalgia, unspecified (02/01/23) Difficulty in walking, not elsewhere classified (02/01/23) Abnormal posture (02/01/23) Weakness (02/01/23) Physical Therapy Treatment Note PT-OP-A Visit Information Start: 12/17/22 11:56 Freq: Status: Active Protocol: Document 02/01/23 09:45 [facility] (Rec: 02/01/23 10:32 NB [id number]) Out-Patient Physical Therapy Visit Information Visit Information Visit Type Treatment Note Visit Note 01/25 Visit Start Time 09:47 Visit Stop Time 10:30 Total Visit Minutes 43 Visit Number 7 Number of SYNTHETIC SOIL BLOCKS PULPER Visits 1 PT-OP-B Current Condition Start: 12/17/22 11:56 Freq: Status: Active Protocol: Document 12/21/22 11:53 [facility] (Rec: 12/21/22 13:39 [facility] [id number]) Current Condition History of Current Condition Onset Date 2 months ago Current Complaints LBP and L leg pain History of Current Condition Pt reports he has not had any back issues or concerns ever, but around his 72th bday. He doesn't have recolection of anything that caused it. tylenol didn't help and went to ER for tordal and mm relaxors and afew days later, it didn't better. Xray the 2nd time in ER and had oxycodone and neurotin and gabapentin and baclofen and that helped. Initally the pain was so bad, he was crawling to the bathroom and could barely get up. Pt saw Dr. Ahumada and he got an injection and he has been signifcantly better after this whre it is onlyl ow level pain. He saw a specialist in [place]. Pain started in LB and pretty soon after it was burning and painful in post thigh & lat bush and into dorsum of foot. Pt is hoping to go to [place] in the fall w/his . In the last couple weeks, he has seen Dr. Casiano for acupuncture. He has been off the oxy for a month. He has been off all meds for about 1- 2 weeks. he feels tired a little. 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 Pt is using a lumbar cusion behind his back . Pt reports if he stands any period of time, he starts to feel the pain as it just starts to ache a little. Pt reports his typical lifestyle is pretty sedentary. He has not riden his bike since this either. Prior Treatments and Tests Xray: IMPRESSION: Grade 1 isthmic spondylolisthesis at L5-S1, stable MRI lumbar: IMPRESSION: 1. At L5-S1, there are bilateral L5 pars defects, mild anterolisthesis of L5 on S1, and moderate to severe left foraminal narrowing, with left foraminal L5 nerve root impingement. 2. Mild multilevel facet arthropathy. Injection on 11/12/22 Treatment Goals Patient/Caregiver Goals be able to walk in [place] in afew months PT-OP-C Subjective Start: 12/17/22 11:56 Freq: Status: Active Protocol: Document 02/01/23 09:45 [facility] (Rec: 02/01/23 10:32 [facility] [id number]) OP-PT Subjective Patient Comments Patient Comments Pt reports no increased pain, PT-OP-D Balance Start: 12/17/22 11:56 Freq: Status: Active Protocol: Document 12/21/22 11:53 [facility] (Rec: 12/21/22 13:39 [facility] [id number]) Balance Tests Single Limb Standing Single Limb- Right 6 sec a lot of deviation Single Limb- Left 4 sec a lot of deviation PT-OP-G Mobility & Gait Start: 12/17/22 11:56 Freq: Status: Active Protocol: Document 12/21/22 11:53 [facility] (Rec: 12/21/22 13:39 [facility] [id number]) OP Gait Assessment Comments Gait Comments amb w/ lat lean over LLE PT-OP-J Posture/Palpation/Skin Start: 12/17/22 11:56 Freq: Status: Active Protocol: Document 12/21/22 11:53 [facility] (Rec: 12/21/22 13:39 [facility] [id number]) Posture Evaluation Blaine Postural Classification System Blaine Postural Classifications Posterior/Anterior Lumbar Protective Mechanism Left AP 0 Lumbar Protective Mechanism Right AP 0 Lumbar Protective Mechanism Left PA 0 Lumbar Protective Mechanism Right PA 1 PT-OP-K Range of Motion Start: 12/17/22 11:56 Freq: Status: Active Protocol: Document 12/21/22 11:53 [facility] (Rec: 12/21/22 13:39 [facility] [id number]) Lumbar Spine Range of Motion Lumbar Spine Active Percentage Flexion 50 Extension 60 Rotation Left 50 Rotation Right 50 Lateral Flexion Left 75 Lateral Flexion Right 75 Comments some discomfort w/ext PT-OP-M Strength Start: 12/17/22 11:56 Freq: Status: Active Protocol: Document 12/21/22 11:53 [facility] (Rec: 12/21/22 13:39 [facility] [id number]) Hip Strength Hip Manual Muscle Testing Right Flexion (L2) 4 Good External Rotation 5 Normal Internal Rotation 5 Normal Left Flexion (L2) 4- Good- External Rotation 4- Good- Internal Rotation 4- Good- Knee Strength Knee Manual Muscle Testing Right Flexion (S2) 5 Normal Extension (L3) 5 Normal Left Flexion (S2) 5 Normal Extension (L3) 4 Good Ankle/Foot Strength Ankle and Foot Manual Muscle Testing Right Dorsiflexion (L4) 5 Normal Left Dorsiflexion (L4) 4 Good PT-OP-Q Treatments Start: 12/17/22 11:56 Freq: Status: Active Protocol: Document 02/01/23 09:45 [facility] (Rec: 02/01/23 10:32 NB [id number]) Therapeutic Exercises Sitting Exercises stretches Sitting Exercise Name 1.HS 2. figure 4 - seated Side bilateral Reps/Minutes 1 min ea Comments inc time for cues. reviewed positioning, tall sitting posture Standing Exercises Wall standing Standing Exercise Name posture on wall, keep back flush w/ wall, arms out w/ shrug Side bilateral Reps/Minutes 3min Comments max cues for posture and head position. Balance Standing Exercise Name 1. slow marching w/ 5 sec hold . 2. SLS @mirror using counter Side bilateral Equipment Used handrail no MECH[employer]ICAL INTERN>min A prn Reps/Minutes 12x ea Comments max cues for head up, posture and glute engagement wt shifting Standing Exercise Name wide tandem gait stance. wt shifting from frwd leg to back . Side bilateral Equipment Used @counter Reps/Minutes 12x Comments focusing on L fwrd, cues for arm swing Manual Therapy Treatment Soft Tissue Mobilization hip Body Location L piriformis, ADD, Hip flexor Mobilization Type Sustained Pressure Intensity/Depth Moderate Body Position Prone Comments w/hip IR/ER PT-OP-T Assessment and Plan Start: 12/17/22 11:56 Freq: Status: Active Protocol: Document 02/01/23 09:45 [facility] (Rec: 02/01/23 10:32 [facility] [id number]) Physical Therapy Assessment Impairments Impairments Activity Tolerance,Balance, Functional Activities, Functional Mobility,Gait,Pain, Posture,ROM,Soft Tissue Mobility,Strength Goals strength Short Term Goal (STG) Pt will be indep w/HEP STG Duration 01/30 Custodial Goal (LTG) Pt will score at least 3/5 on LPM and 5/5 on all LE MMT to show improved stabiltiy in order to dec instances of pain . LTG Duration 03/15 activities Hemmer Chainstitch Goal (LTG) Pt will be able to go for walks w/o inc pain (at least 3 miles) LTG Duration 03/02 NAN Impairment 14/50 Short Term Goal (STG) Pt iwll improve score to no greater than 9/50 to show imrpoved functional ability. STG Duration 01/27/23 Hemmer Chainstitch Goal (LTG) Pt will improve score to no greater than 3/50 to show imrpoved functional ability. LTG Duration 03/10/23 Assessment Summary Assessment Jose requires cues for wall posture and sitting posture w/ stretches, but he demonstrates improved self- awareness with repetition and cueing except for chin tucks, which need consistent cues rather than chin nod. He is challenged with SL balance L>R . Pt demonstrates improved ability end of session for tying multiple cues together for improved gait with upright posture and arm swing. Palpable tightness to L piriformis improves with manual therapy. Physical Therapy Plan Frequency and Duration Frequency of Treatment 1-2x/wk Duration of treatment (weeks) 12 Plan of Care Start Date 12/21/22 Plan of Care End Date 03/15/23 Therapeutic Interventions Therapeutic Interventions Balance Training,Gait Training ,Home Exercise Program,Joint Mobilizations,Manual Therapy, Neuromuscular Re-education, Orthotic/Prosthetic Management ,Patient/Caregiver Education, Self-Care/Home Management,Soft Tissue Mobilization,Taping, Therapeutic Activities, Therapeutic Exercises Modalities Cold Pack/Ice Massage,Electric Stimulation,Hot Packs, Ultrasound Next Visit Focus/Plan Next Note Type Treatment Note Next Visit Plan Review: Posture at wall, SL balance, Cat/Cow and Alt UE lifts. update HEP. advance exercises as able; PNF for core stability, cont to work on hip and pelvis/lumbar mobility
--- NOTE | 2023-02-04 10:34 | PT.OTN ---
Current Diagnoses Dorsalgia, unspecified (02/04/23) Difficulty in walking, not elsewhere classified (02/04/23) Abnormal posture (02/04/23) Weakness (02/04/23) Physical Therapy Treatment Note PT-OP-A Visit Information Start: 12/17/22 11:56 Freq: Status: Active Protocol: Document 02/04/23 10:20 [facility] (Rec: 02/04/23 10:34 [facility] [id number]) Out-Patient Physical Therapy Visit Information Visit Information Visit Type Treatment Note Visit Note 02/25 Visit Start Time 09:07 Visit Stop Time 09:47 Total Visit Minutes 40 Visit Number 8 Number of BUSINESS EDUCATION INSTRUCTOR Visits 0 PT-OP-B Current Condition Start: 12/17/22 11:56 Freq: Status: Active Protocol: Document 12/21/22 11:53 [facility] (Rec: 12/21/22 13:39 [facility] [id number]) Current Condition History of Current Condition Onset Date 2 months ago Current Complaints LBP and L leg pain History of Current Condition Pt reports he has not had any back issues or concerns ever, but around his 72th bday. He doesn't have recolection of anything that caused it. tylenol didn't help and went to ER for tordal and mm relaxors and afew days later, it didn't better. Xray the 2nd time in ER and had oxycodone and neurotin and gabapentin and baclofen and that helped. Initally the pain was so bad, he was crawling to the bathroom and could barely get up. Pt saw Dr. Ahumada and he got an injection and he has been signifcantly better after this whre it is onlyl ow level pain. He saw a specialist in [place]. Pain started in LB and pretty soon after it was burning and painful in post thigh & lat bush and into dorsum of foot. Pt is hoping to go to [place] in the fall w/his . In the last couple weeks, he has seen Dr. Casiano for acupuncture. He has been off the oxy for a month. He has been off all meds for about 1- 2 weeks. he feels tired a little. 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 Pt is using a lumbar cusion behind his back . Pt reports if he stands any period of time, he starts to feel the pain as it just starts to ache a little. Pt reports his typical lifestyle is pretty sedentary. He has not riden his bike since this either. Prior Treatments and Tests Xray: IMPRESSION: Grade 1 isthmic spondylolisthesis at L5-S1, stable MRI lumbar: IMPRESSION: 1. At L5-S1, there are bilateral L5 pars defects, mild anterolisthesis of L5 on S1, and moderate to severe left foraminal narrowing, with left foraminal L5 nerve root impingement. 2. Mild multilevel facet arthropathy. Injection on 11/12/22 Treatment Goals Patient/Caregiver Goals be able to walk in [place] in afew months PT-OP-C Subjective Start: 12/17/22 11:56 Freq: Status: Active Protocol: Document 02/04/23 10:20 [facility] (Rec: 02/04/23 10:34 [facility] [id number]) OP-PT Subjective Patient Comments Patient Comments Pt reports he has done some of his stretches. He did bike and that went okay PT-OP-D Balance Start: 12/17/22 11:56 Freq: Status: Active Protocol: Document 12/21/22 11:53 [facility] (Rec: 12/21/22 13:39 [facility] [id number]) Balance Tests Single Limb Standing Single Limb- Right 6 sec a lot of deviation Single Limb- Left 4 sec a lot of deviation PT-OP-G Mobility & Gait Start: 12/17/22 11:56 Freq: Status: Active Protocol: Document 12/21/22 11:53 [facility] (Rec: 12/21/22 13:39 [facility] [id number]) OP Gait Assessment Comments Gait Comments amb w/ lat lean over LLE PT-OP-J Posture/Palpation/Skin Start: 12/17/22 11:56 Freq: Status: Active Protocol: Document 12/21/22 11:53 [facility] (Rec: 12/21/22 13:39 [facility] [id number]) Posture Evaluation Blaine Postural Classification System Blaine Postural Classifications Posterior/Anterior Lumbar Protective Mechanism Left AP 0 Lumbar Protective Mechanism Right AP 0 Lumbar Protective Mechanism Left PA 0 Lumbar Protective Mechanism Right PA 1 PT-OP-K Range of Motion Start: 12/17/22 11:56 Freq: Status: Active Protocol: Document 12/21/22 11:53 [facility] (Rec: 12/21/22 13:39 [facility] [id number]) Lumbar Spine Range of Motion Lumbar Spine Active Percentage Flexion 50 Extension 60 Rotation Left 50 Rotation Right 50 Lateral Flexion Left 75 Lateral Flexion Right 75 Comments some discomfort w/ext PT-OP-M Strength Start: 12/17/22 11:56 Freq: Status: Active Protocol: Document 12/21/22 11:53 [facility] (Rec: 12/21/22 13:39 [facility] [id number]) Hip Strength Hip Manual Muscle Testing Right Flexion (L2) 4 Good External Rotation 5 Normal Internal Rotation 5 Normal Left Flexion (L2) 4- Good- External Rotation 4- Good- Internal Rotation 4- Good- Knee Strength Knee Manual Muscle Testing Right Flexion (S2) 5 Normal Extension (L3) 5 Normal Left Flexion (S2) 5 Normal Extension (L3) 4 Good Ankle/Foot Strength Ankle and Foot Manual Muscle Testing Right Dorsiflexion (L4) 5 Normal Left Dorsiflexion (L4) 4 Good PT-OP-Q Treatments Start: 12/17/22 11:56 Freq: Status: Active Protocol: Document 02/04/23 10:20 [facility] (Rec: 02/04/23 10:34 [facility] [id number]) Therapeutic Exercises Supine Exercises isometric Supine Exercise Name DL flex isometric Side bilateral Reps/Minutes 30 sec Comments cues for no breath holding Manual Therapy Treatment Soft Tissue Mobilization thigh Body Location L ITB HS Mobilization Type Rolling,Strumming Intensity/Depth Moderate Body Position Hooklying Comments FM w/ER and AAROM HS stretch hip Body Location circumfrential close to hip Mobilization Type Sustained Pressure Comments w/hip flex Joint Mobilizations innominate Joint L flex FM hip Joint R inf glide & inf glide w/flex ER combo Neuro Re-Education Treatment Other Activities facilitation Reps/Duration 8 min total Comments LLE flex, add, ER faciliation w/chop pattern and chin tuck- mult reps w/prolonged holds PT-OP-T Assessment and Plan Start: 12/17/22 11:56 Freq: Status: Active Protocol: Document 02/04/23 10:20 [facility] (Rec: 02/04/23 10:34 [facility] [id number]) Physical Therapy Assessment Goals strength Short Term Goal (STG) Pt will be indep w/HEP STG Duration 715 Youth Services Specialist Goal (LTG) Pt will score at least 3/5 on LPM and 5/5 on all LE MMT to show improved stabiltiy in order to dec instances of pain . LTG Duration 03/15 activities Usp Goal (LTG) Pt will be able to go for walks w/o inc pain (at least 3 miles) LTG Duration 03/02 ANN Impairment 14/50 Short Term Goal (STG) Pt iwll improve score to no greater than 9/50 to show imrpoved functional ability. STG Duration 01/27/23 Youth Services Specialist Goal (LTG) Pt will improve score to no greater than 3/50 to show imrpoved functional ability. LTG Duration 03/10/23 Assessment Summary Assessment Pt had much improved L hip flexion after manual treatment , but does still feel tight w/ flex ER combo although improved overall. He had even pelvis height at start of treatment even w/wt shift lat and overall good ROM w/some limit w/rotation and SB. Improved core facilitation after PNF, but he does have weaker LEFT on L than R even after treatment. Physical Therapy Plan Frequency and Duration Frequency of Treatment 1-2x/wk Duration of treatment (weeks) 12 Plan of Care Start Date 12/21/22 Plan of Care End Date 03/15/23 Next Visit Focus/Plan Next Note Type Treatment Note Next Visit Plan Review: Posture at wall, SL balance, Cat/Cow and Alt UE lifts. update HEP. advance exercises as able; PNF for core stability, cont to work on hip and pelvis/lumbar mobility
--- NOTE | 2023-02-11 12:48 | PT.OTN ---
Addendum entered and electronically signed by Rose Mary Olmos PT 02/11/23 15:55: PT direct supervision and direction to PT student. Original Note: Current Diagnoses Dorsalgia, unspecified (02/11/23) Difficulty in walking, not elsewhere classified (02/11/23) Abnormal posture (02/11/23) Weakness (02/11/23) Physical Therapy Treatment Note PT-OP-A Visit Information Start: 12/17/22 11:56 Freq: Status: Active Protocol: Document 02/11/23 09:04 (Rec: 02/11/23 10:05 [id number]) Out-Patient Physical Therapy Visit Information Visit Information Visit Type Progress Note Visit Note 07/28 Visit Start Time 09:04 Visit Stop Time 09:47 Total Visit Minutes 43 Visit Number 9 Number of CURB HOP Visits 0 PT-OP-B Current Condition Start: 12/17/22 11:56 Freq: Status: Active Protocol: Document 12/21/22 11:53 [facility] (Rec: 12/21/22 13:39 [facility] [id number]) Current Condition History of Current Condition Onset Date 2 months ago Current Complaints LBP and L leg pain History of Current Condition Pt reports he has not had any back issues or concerns ever, but around his 72th bday. He doesn't have recolection of anything that caused it. tylenol didn't help and went to ER for tordal and mm relaxors and afew days later, it didn't better. Xray the 2nd time in ER and had oxycodone and neurotin and gabapentin and baclofen and that helped. Initally the pain was so bad, he was crawling to the bathroom and could barely get up. Pt saw Dr. Ahumada and he got an injection and he has been signifcantly better after this whre it is onlyl ow level pain. He saw a specialist in [place]. Pain started in LB and pretty soon after it was burning and painful in post thigh & lat bush and into dorsum of foot. Pt is hoping to go to [place] in the fall w/his . In the last couple weeks, he has seen Dr. Casiano for acupuncture. He has been off the oxy for a month. He has been off all meds for about 1- 2 weeks. he feels tired a little. 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 Pt is using a lumbar cusion behind his back . Pt reports if he stands any period of time, he starts to feel the pain as it just starts to ache a little. Pt reports his typical lifestyle is pretty sedentary. He has not riden his bike since this either. Prior Treatments and Tests Xray: IMPRESSION: Grade 1 isthmic spondylolisthesis at L5-S1, stable MRI lumbar: IMPRESSION: 1. At L5-S1, there are bilateral L5 pars defects, mild anterolisthesis of L5 on S1, and moderate to severe left foraminal narrowing, with left foraminal L5 nerve root impingement. 2. Mild multilevel facet arthropathy. Injection on 11/12/22 Treatment Goals Patient/Caregiver Goals be able to walk in [place] in afew months PT-OP-C Subjective Start: 12/17/22 11:56 Freq: Status: Active Protocol: Document 02/11/23 09:04 (Rec: 02/11/23 10:05 [id number]) OP-PT Subjective Patient Comments Patient Comments pt has nothing new to report Patient Questionnaires Oswestry Low Back Index Oswestry Score 2/50 PT-OP-D Balance Start: 12/17/22 11:56 Freq: Status: Active Protocol: Document 12/21/22 11:53 [facility] (Rec: 12/21/22 13:39 [facility] [id number]) Balance Tests Single Limb Standing Single Limb- Right 6 sec a lot of deviation Single Limb- Left 4 sec a lot of deviation PT-OP-G Mobility & Gait Start: 12/17/22 11:56 Freq: Status: Active Protocol: Document 12/21/22 11:53 [facility] (Rec: 12/21/22 13:39 [facility] [id number]) OP Gait Assessment Comments Gait Comments amb w/ lat lean over LLE PT-OP-J Posture/Palpation/Skin Start: 12/17/22 11:56 Freq: Status: Active Protocol: Document 02/11/23 09:04 (Rec: 02/11/23 10:05 [id number]) Posture Evaluation Blaine Postural Classification System Blaine Postural Classifications Posterior/Anterior Lumbar Protective Mechanism Left AP 1 Lumbar Protective Mechanism Right AP 2 Lumbar Protective Mechanism Left PA 2 Lumbar Protective Mechanism Right PA 2 PT-OP-K Range of Motion Start: 12/17/22 11:56 Freq: Status: Active Protocol: Document 12/21/22 11:53 [facility] (Rec: 12/21/22 13:39 [facility] [id number]) Lumbar Spine Range of Motion Lumbar Spine Active Percentage Flexion 50 Extension 60 Rotation Left 50 Rotation Right 50 Lateral Flexion Left 75 Lateral Flexion Right 75 Comments some discomfort w/ext PT-OP-M Strength Start: 12/17/22 11:56 Freq: Status: Active Protocol: Document 02/11/23 09:04 (Rec: 02/11/23 10:05 [id number]) Hip Strength Hip Manual Muscle Testing Right Flexion (L2) 4 Good Extension (S1) 3+ Fair+ Abduction 4+ Good+ Adduction 3+ Fair+ External Rotation 5 Normal Internal Rotation 5 Normal Left Flexion (L2) 4+ Good+ Extension (S1) 3+ Fair+ Abduction 4- Good- Adduction 3+ Fair+ External Rotation 4 Good Internal Rotation 4 Good Knee Strength Knee Manual Muscle Testing Right Flexion (S2) 5 Normal Extension (L3) 5 Normal Left Flexion (S2) 5 Normal Extension (L3) 4 Good Ankle/Foot Strength Ankle and Foot Manual Muscle Testing Right Dorsiflexion (L4) 5 Normal Left Dorsiflexion (L4) 5 Normal PT-OP-Q Treatments Start: 12/17/22 11:56 Freq: Status: Active Protocol: Document 02/11/23 09:04 (Rec: 02/11/23 10:05 [id number]) Therapeutic Exercises Standing Exercises Balance Standing Exercise Name 1. slow marching w/ 5 sec hold . 2. 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 supine 2. R sidelying, L leg in ABD w /PT support Self-Care/Home Management Treatment Education Other Education 4min throughout- educated on the importance of walking in order to reach his functional goals. PT-OP-T Assessment and Plan Start: 12/17/22 11:56 Freq: Status: Active Protocol: Document 02/11/23 09:04 (Rec: 02/11/23 10:05 [id number]) Physical Therapy Assessment Goals strength Short Term Goal (STG) Pt will be indep w/HEP STG Duration 01/30 Bruise Trimmer Goal (LTG) Pt will score at least 3/5 on LPM and 5/5 on all LE MMT to show improved stabiltiy in order to dec instances of pain . LTG Duration 03/15 activities Custodial Goal (LTG) Pt will be able to go for walks w/o inc pain (at least 3 miles) LTG Duration 03/02 NAN Impairment 14/50 02/11/23- Short Term Goal (STG) Pt iwll improve score to no greater than 9/50 to show imrpoved functional ability. 02/11/23- STG Duration Achieved 02/11/23 Custodial Goal (LTG) Pt will improve score to no greater than 3/50 to show imrpoved functional ability. 02/11/23- LTG Duration Achieved 02/11/23 Assessment Summary Assessment Pts oswestry today was 2/50 indicating that pt has improved functional ability w/ their daily activities. MMT shows that he does have some improved LE strength 4/5 or greater, but demonstrated some weakness 3+/5 bilaterally for hip ext and ADD. He admits that he has not been walking as much as he should be. Pt still has dec balance on LLE in SLS. He still requires cues for posture during wt shifting. L hip flexion and external rotation improved following manaul treatment. When placed in R sidelying and LLE raised into ABD there was restriction in both ABD and ext. Following manual to RLE in sidelying there was some improved ABD. Pt would benefit from continued physical therapy to continue to improve upon his balance and ability to go through his daily activities w/ ease. Physical Therapy Plan Frequency and Duration Frequency of Treatment 1-2x/wk Duration of treatment (weeks) 12 Plan of Care Start Date 12/21/22 Plan of Care End Date 03/15/23 Therapeutic Interventions Therapeutic Interventions Balance Training,Gait Training ,Home Exercise Program,Joint Mobilizations,Manual Therapy, Neuromuscular Re-education, Orthotic/Prosthetic Management ,Patient/Caregiver Education, Self-Care/Home Management,Soft Tissue Mobilization,Taping, Therapeutic Activities, Therapeutic Exercises Modalities Cold Pack/Ice Massage,Electric Stimulation,Hot Packs, Ultrasound Next Visit Focus/Plan Next Note Type Treatment Note Next Visit Plan Review: Posture at wall, SL balance, Cat/Cow and Alt UE lifts. update HEP. advance exercises as able; PNF for core stability, cont to work on hip and pelvis/lumbar mobility Manual- Hip ABD
--- NOTE | 2023-02-15 11:24 | PT.OTN ---
Current Diagnoses Dorsalgia, unspecified (02/15/23) Difficulty in walking, not elsewhere classified (02/15/23) Abnormal posture (02/15/23) Weakness (02/15/23) Physical Therapy Treatment Note PT-OP-A Visit Information Start: 12/17/22 11:56 Freq: Status: Active Protocol: Document 02/15/23 09:03 [facility] (Rec: 02/15/23 11:24 [facility] [id number]) Out-Patient Physical Therapy Visit Information Visit Information Visit Type Treatment Note Visit Note 08/28 Visit Start Time 09:05 Visit Stop Time 09:48 Total Visit Minutes 43 Visit Number 11 Number of PORT CRANE OPERATOR Visits 0 PT-OP-B Current Condition Start: 12/17/22 11:56 Freq: Status: Active Protocol: Document 12/21/22 11:53 [facility] (Rec: 12/21/22 13:39 [facility] [id number]) Current Condition History of Current Condition Onset Date 2 months ago Current Complaints LBP and L leg pain History of Current Condition Pt reports he has not had any back issues or concerns ever, but around his 72th bday. He doesn't have recolection of anything that caused it. tylenol didn't help and went to ER for tordal and mm relaxors and afew days later, it didn't better. Xray the 2nd time in ER and had oxycodone and neurotin and gabapentin and baclofen and that helped. Initally the pain was so bad, he was crawling to the bathroom and could barely get up. Pt saw Dr. Ahumada and he got an injection and he has been signifcantly better after this whre it is onlyl ow level pain. He saw a specialist in [place]. Pain started in LB and pretty soon after it was burning and painful in post thigh & lat bush and into dorsum of foot. Pt is hoping to go to [place] in the fall w/his . In the last couple weeks, he has seen Dr. Casiano for acupuncture. He has been off the oxy for a month. He has been off all meds for about 1- 2 weeks. he feels tired a little. 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 Pt is using a lumbar cusion behind his back . Pt reports if he stands any period of time, he starts to feel the pain as it just starts to ache a little. Pt reports his typical lifestyle is pretty sedentary. He has not riden his bike since this either. Prior Treatments and Tests Xray: IMPRESSION: Grade 1 isthmic spondylolisthesis at L5-S1, stable MRI lumbar: IMPRESSION: 1. At L5-S1, there are bilateral L5 pars defects, mild anterolisthesis of L5 on S1, and moderate to severe left foraminal narrowing, with left foraminal L5 nerve root impingement. 2. Mild multilevel facet arthropathy. Injection on 11/12/22 Treatment Goals Patient/Caregiver Goals be able to walk in [place] in afew months PT-OP-C Subjective Start: 12/17/22 11:56 Freq: Status: Active Protocol: Document 02/15/23 09:03 [facility] (Rec: 02/15/23 11:24 [facility] [id number]) OP-PT Subjective Patient Comments Patient Comments Pt reports doing some walking, dancing and biking recently PT-OP-D Balance Start: 12/17/22 11:56 Freq: Status: Active Protocol: Document 12/21/22 11:53 [facility] (Rec: 12/21/22 13:39 [facility] [id number]) Balance Tests Single Limb Standing Single Limb- Right 6 sec a lot of deviation Single Limb- Left 4 sec a lot of deviation PT-OP-G Mobility & Gait Start: 12/17/22 11:56 Freq: Status: Active Protocol: Document 12/21/22 11:53 [facility] (Rec: 12/21/22 13:39 [facility] [id number]) OP Gait Assessment Comments Gait Comments amb w/ lat lean over LLE PT-OP-J Posture/Palpation/Skin Start: 12/17/22 11:56 Freq: Status: Active Protocol: Document 02/11/23 09:04 (Rec: 02/11/23 10:05 [id number]) Posture Evaluation Blaine Postural Classification System Blaine Postural Classifications Posterior/Anterior Lumbar Protective Mechanism Left AP 1 Lumbar Protective Mechanism Right AP 2 Lumbar Protective Mechanism Left PA 2 Lumbar Protective Mechanism Right PA 2 PT-OP-K Range of Motion Start: 12/17/22 11:56 Freq: Status: Active Protocol: Document 12/21/22 11:53 [facility] (Rec: 12/21/22 13:39 [facility] [id number]) Lumbar Spine Range of Motion Lumbar Spine Active Percentage Flexion 50 Extension 60 Rotation Left 50 Rotation Right 50 Lateral Flexion Left 75 Lateral Flexion Right 75 Comments some discomfort w/ext PT-OP-M Strength Start: 12/17/22 11:56 Freq: Status: Active Protocol: Document 02/11/23 09:04 (Rec: 02/11/23 10:05 [id number]) Hip Strength Hip Manual Muscle Testing Right Flexion (L2) 4 Good Extension (S1) 3+ Fair+ Abduction 4+ Good+ Adduction 3+ Fair+ External Rotation 5 Normal Internal Rotation 5 Normal Left Flexion (L2) 4+ Good+ Extension (S1) 3+ Fair+ Abduction 4- Good- Adduction 3+ Fair+ External Rotation 4 Good Internal Rotation 4 Good Knee Strength Knee Manual Muscle Testing Right Flexion (S2) 5 Normal Extension (L3) 5 Normal Left Flexion (S2) 5 Normal Extension (L3) 4 Good Ankle/Foot Strength Ankle and Foot Manual Muscle Testing Right Dorsiflexion (L4) 5 Normal Left Dorsiflexion (L4) 5 Normal PT-OP-Q Treatments Start: 12/17/22 11:56 Freq: Status: Active Protocol: Document 02/15/23 09:03 [facility] (Rec: 02/15/23 11:24 [facility] [id number]) Therapeutic Exercises Standing Exercises hip hikes Standing Exercise Name 1. on step w/rail 2. w/ball at wall Side bilateral Reps/Minutes 1. 2x10 B 2. 12 ea Comments max cues wt shifting Standing Exercise Name from RLE to LLE in mirror w/ focus on full wt acceptanec w/ good posture to S Reps/Minutes 8 min Neuro Re-Education Treatment Other Activities PNF Details L Reps/Duration 15 min Comments 1. ant elevation irradiation from LE to pelvis progressed to sustained hold 2. ant elevation w/ dissociation of LE from pelvis COI then pelvis from LE 3. full range COI LLE w/pelvis and LE pattern 4. sustained hold pelvis post dep progressed to w/LE 5.post dep w/dissociation of LE from pelvis facilitation Reps/Duration 8 min Comments seated BLE traction to facilitate wt acceptance into LE w/prolonged holds PT-OP-T Assessment and Plan Start: 12/17/22 11:56 Freq: Status: Active Protocol: Document 02/15/23 09:03 [facility] (Rec: 02/15/23 11:24 [facility] [id number]) Physical Therapy Assessment Goals strength Short Term Goal (STG) Pt will be indep w/HEP STG Duration 01/30 Helper/Driver Goal (LTG) Pt will score at least 3/5 on LPM and 5/5 on all LE MMT to show improved stabiltiy in order to dec instances of pain . LTG Duration 03/15 activities Fpc Goal (LTG) Pt will be able to go for walks w/o inc pain (at least 3 miles) LTG Duration 03/02 NAN Impairment 14/50 02/11/23- Short Term Goal (STG) Pt iwll improve score to no greater than 9/50 to show imrpoved functional ability. 02/11/23- STG Duration Achieved 02/11/23 Fpc Goal (LTG) Pt will improve score to no greater than 3/50 to show imrpoved functional ability. 02/11/23- LTG Duration Achieved 02/11/23 Assessment Summary Assessment pt cont to have difficulty w/ wt acceptance into LLE. He has improved w/ activities in s/l but does still struggle w/ this in WB. He had a lot more difficulty w/hip hikes on LLE than R. Physical Therapy Plan Frequency and Duration Frequency of Treatment 1-2x/wk Duration of treatment (weeks) 12 Plan of Care Start Date 12/21/22 Plan of Care End Date 03/15/23 Next Visit Focus/Plan Next Note Type Treatment Note Next Visit Plan cont to worko n pt ability to wt accept into LLE advance exercises as able; PNF for core stability, cont to work on hip and pelvis/lumbar mobility Manual- Hip ABD
--- NOTE | 2023-02-19 12:00 | PT.OTN ---
Current Diagnoses Dorsalgia, unspecified (02/19/23) Difficulty in walking, not elsewhere classified (02/19/23) Abnormal posture (02/19/23) Weakness (02/19/23) Physical Therapy Treatment Note PT-OP-A Visit Information Start: 12/17/22 11:56 Freq: Status: Active Protocol: Document 02/19/23 09:28 NB (Rec: 02/19/23 10:04 [facility] [id number]) Out-Patient Physical Therapy Visit Information Visit Information Visit Type Treatment Note Visit Note 09/25 Visit Start Time : Visit Stop Time 10:02 Total Visit Minutes 39 Visit Number 12 Number of POMOLOGY TEACHER Visits 1 PT-OP-B Current Condition Start: 12/17/22 11:56 Freq: Status: Active Protocol: Document 12/21/22 11:53 [facility] (Rec: 12/21/22 13:39 [facility] [id number]) Current Condition History of Current Condition Onset Date 2 months ago Current Complaints LBP and L leg pain History of Current Condition Pt reports he has not had any back issues or concerns ever, but around his 72th bday. He doesn't have recolection of anything that caused it. tylenol didn't help and went to ER for tordal and mm relaxors and afew days later, it didn't better. Xray the 2nd time in ER and had oxycodone and neurotin and gabapentin and baclofen and that helped. Initally the pain was so bad, he was crawling to the bathroom and could barely get up. Pt saw Dr. Ahumada and he got an injection and he has been signifcantly better after this whre it is onlyl ow level pain. He saw a specialist in [place]. Pain started in LB and pretty soon after it was burning and painful in post thigh & lat bush and into dorsum of foot. Pt is hoping to go to [place] in the fall w/his . In the last couple weeks, he has seen Dr. Casiano for acupuncture. He has been off the oxy for a month. He has been off all meds for about 1- 2 weeks. he feels tired a little. 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 Pt is using a lumbar cusion behind his back . Pt reports if he stands any period of time, he starts to feel the pain as it just starts to ache a little. Pt reports his typical lifestyle is pretty sedentary. He has not riden his bike since this either. Prior Treatments and Tests Xray: IMPRESSION: Grade 1 isthmic spondylolisthesis at L5-S1, stable MRI lumbar: IMPRESSION: 1. At L5-S1, there are bilateral L5 pars defects, mild anterolisthesis of L5 on S1, and moderate to severe left foraminal narrowing, with left foraminal L5 nerve root impingement. 2. Mild multilevel facet arthropathy. Injection on 11/12/22 Treatment Goals Patient/Caregiver Goals be able to walk in [place] in afew months PT-OP-C Subjective Start: 12/17/22 11:56 Freq: Status: Active Protocol: Document 02/19/23 09:28 NB (Rec: 02/19/23 10:04 [facility] [id number]) OP-PT Subjective Patient Comments Patient Comments Pt reports he dropped something on his foot a few days ago but went on his bike since. [place]'s been walking [place] was [place] a boat and balance was okay. He admits he could be better about doing his exercises more. PT-OP-D Balance Start: 12/17/22 11:56 Freq: Status: Active Protocol: Document 12/21/22 11:53 [facility] (Rec: 12/21/22 13:39 [facility] [id number]) Balance Tests Single Limb Standing Single Limb- Right 6 sec a lot of deviation Single Limb- Left 4 sec a lot of deviation PT-OP-G Mobility & Gait Start: 12/17/22 11:56 Freq: Status: Active Protocol: Document 12/21/22 11:53 [facility] (Rec: 12/21/22 13:39 [facility] [id number]) OP Gait Assessment Comments Gait Comments amb w/ lat lean over LLE PT-OP-J Posture/Palpation/Skin Start: 12/17/22 11:56 Freq: Status: Active Protocol: Document 02/11/23 09:04 (Rec: 02/11/23 10:05 [id number]) Posture Evaluation Blaine Postural Classification System Blaine Postural Classifications Posterior/Anterior Lumbar Protective Mechanism Left AP 1 Lumbar Protective Mechanism Right AP 2 Lumbar Protective Mechanism Left PA 2 Lumbar Protective Mechanism Right PA 2 PT-OP-K Range of Motion Start: 12/17/22 11:56 Freq: Status: Active Protocol: Document 12/21/22 11:53 LR (Rec: 12/21/22 13:39 [facility] [id number]) Lumbar Spine Range of Motion Lumbar Spine Active Percentage Flexion 50 Extension 60 Rotation Left 50 Rotation Right 50 Lateral Flexion Left 75 Lateral Flexion Right 75 Comments some discomfort w/ext PT-OP-M Strength Start: 12/17/22 11:56 Freq: Status: Active Protocol: Document 02/11/23 09:04 J[facility] (Rec: 02/11/23 10:05 [facility] [id number]) Hip Strength Hip Manual Muscle Testing Right Flexion (L2) 4 Good Extension (S1) 3+ Fair+ Abduction 4+ Good+ Adduction 3+ Fair+ External Rotation 5 Normal Internal Rotation 5 Normal Left Flexion (L2) 4+ Good+ Extension (S1) 3+ Fair+ Abduction 4- Good- Adduction 3+ Fair+ External Rotation 4 Good Internal Rotation 4 Good Knee Strength Knee Manual Muscle Testing Right Flexion (S2) 5 Normal Extension (L3) 5 Normal Left Flexion (S2) 5 Normal Extension (L3) 4 Good Ankle/Foot Strength Ankle and Foot Manual Muscle Testing Right Dorsiflexion (L4) 5 Normal Left Dorsiflexion (L4) 5 Normal PT-OP-Q Treatments Start: 12/17/22 11:56 Freq: Status: Active Protocol: Document 02/19/23 09:28 NBM (Rec: 02/19/23 10:04 [facility] [id number]) Therapeutic Exercises Supine Exercises isometric Supine Exercise Name DL flex isometric Side bilateral Reps/Minutes 30 sec Comments cues for no breath holding, relax neck bridge Supine Exercise Name 1. bridging 2. alt marches Side bilateral Reps/Minutes 1.10 x 5SH 2.5 ea Comments cues no breatholding Standing Exercises hip hikes Standing Exercise Name 1. on step w/rail 2. w/ball at wall Side bilateral Equipment Used blue/white ball Reps/Minutes 1. 2x10 B 2. 12 ea Comments max cues Balance Standing Exercise Name 1. slow dynamic marching w/ 3 sec hold. 2. SLS w/ ELECTRICIAN MAINTENANCE prn Side bilateral Equipment Used no ELECTRICIAN MAINTENANCE Reps/Minutes 12x ea Comments L>R focus, cues for upright posture, recip arm motion wt shifting Standing Exercise Name from RLE to LLE in mirror w/ focus on full wt acceptanec w/ good posture to S Reps/Minutes 8 min PT-OP-T Assessment and Plan Start: 12/17/22 11:56 Freq: Status: Active Protocol: Document 02/19/23 09:28 [facility] (Rec: 02/19/23 10:04 [facility] [id number]) Physical Therapy Assessment Impairments Impairments Activity Tolerance,Balance, Functional Activities, Functional Mobility,Gait,Pain, Posture,ROM,Soft Tissue Mobility,Strength Goals strength Short Term Goal (STG) Pt will be indep w/HEP STG Duration 01/30 Machine Baster Goal (LTG) Pt will score at least 3/5 on LPM and 5/5 on all LE MMT to show improved stabiltiy in order to dec instances of pain . LTG Duration 03/15 activities Machine Baster Goal (LTG) Pt will be able to go for walks w/o inc pain (at least 3 miles) LTG Duration 03/02 NAN Impairment 14/50 02/11/23- Short Term Goal (STG) Pt iwll improve score to no greater than 9/50 to show imrpoved functional ability. 02/11/23- STG Duration Achieved 02/11/23 Halfway Goal (LTG) Pt will improve score to no greater than 3/50 to show imrpoved functional ability. 02/11/23- LTG Duration Achieved 02/11/23 Assessment Summary Assessment Scott is challenged with balance and requires cues for reciprocal arm motion with anterioposterior weightshifting in staggered stance and with slow dynamic marching. He has LOB x3 to the right with slow dynamic marching but self-recovered with stepping strategy. When challenged with core ex's he tends to hold his breath without occasional cueing., With single leg balance he requires consistent cues for upright posture and gluteal activation. He continues to be more challenged on LLE with hip hikes and balance activities. Physical Therapy Plan Frequency and Duration Frequency of Treatment 1-2x/wk Duration of treatment (weeks) 12 Plan of Care Start Date 12/21/22 Plan of Care End Date 03/15/23 Therapeutic Interventions Therapeutic Interventions Balance Training,Gait Training ,Home Exercise Program,Joint Mobilizations,Manual Therapy, Neuromuscular Re-education, Orthotic/Prosthetic Management ,Patient/Caregiver Education, Self-Care/Home Management,Soft Tissue Mobilization,Taping, Therapeutic Activities, Therapeutic Exercises Modalities Cold Pack/Ice Massage,Electric Stimulation,Hot Packs, Ultrasound Next Visit Focus/Plan Next Note Type Treatment Note Next Visit Plan cont to worko n pt ability to wt accept into LLE advance exercises as able; PNF for core stability, cont to work on hip and pelvis/lumbar mobility Manual- Hip ABD
--- NOTE | 2023-02-23 10:14 | PT.OTN ---
Current Diagnoses Dorsalgia, unspecified (02/23/23) Difficulty in walking, not elsewhere classified (02/23/23) Abnormal posture (02/23/23) Weakness (02/23/23) Physical Therapy Treatment Note PT-OP-A Visit Information Start: 12/17/22 11:56 Freq: Status: Active Protocol: Document 02/23/23 09:17 NB (Rec: 02/23/23 10:14 [facility] [id number]) Out-Patient Physical Therapy Visit Information Visit Information Visit Type Treatment Note Visit Note 10/26 Visit Start Time 09:17 Visit Stop Time 10:07 Total Visit Minutes 50 Visit Number 13 Number of INTEGRITY MANAGER Visits 2 PT-OP-B Current Condition Start: 12/17/22 11:56 Freq: Status: Active Protocol: Document 12/21/22 11:53 [facility] (Rec: 12/21/22 13:39 [facility] [id number]) Current Condition History of Current Condition Onset Date 2 months ago Current Complaints LBP and L leg pain History of Current Condition Pt reports he has not had any back issues or concerns ever, but around his 72th bday. He doesn't have recolection of anything that caused it. tylenol didn't help and went to ER for tordal and mm relaxors and afew days later, it didn't better. Xray the 2nd time in ER and had oxycodone and neurotin and gabapentin and baclofen and that helped. Initally the pain was so bad, he was crawling to the bathroom and could barely get up. Pt saw Dr. Ahumada and he got an injection and he has been signifcantly better after this whre it is onlyl ow level pain. He saw a specialist in [place]. Pain started in LB and pretty soon after it was burning and painful in post thigh & lat bush and into dorsum of foot. Pt is hoping to go to [place] in the fall w/his . In the last couple weeks, he has seen Dr. Casiano for acupuncture. He has been off the oxy for a month. He has been off all meds for about 1- 2 weeks. he feels tired a little. 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 Pt is using a lumbar cusion behind his back . Pt reports if he stands any period of time, he starts to feel the pain as it just starts to ache a little. Pt reports his typical lifestyle is pretty sedentary. He has not riden his bike since this either. Prior Treatments and Tests Xray: IMPRESSION: Grade 1 isthmic spondylolisthesis at L5-S1, stable MRI lumbar: IMPRESSION: 1. At L5-S1, there are bilateral L5 pars defects, mild anterolisthesis of L5 on S1, and moderate to severe left foraminal narrowing, with left foraminal L5 nerve root impingement. 2. Mild multilevel facet arthropathy. Injection on 11/12/22 Treatment Goals Patient/Caregiver Goals be able to walk in [place] in afew months PT-OP-C Subjective Start: 12/17/22 11:56 Freq: Status: Active Protocol: Document 02/23/23 09:17 NB (Rec: 02/23/23 10:14 [facility] [id number]) OP-PT Subjective Patient Comments Patient Comments Scott reports he was able to enjoy [place] walking and noticed a twinge in his L hamstring but that was all. He didn't do much exercising but walked a fair amount since last visit. He is surprised that his foot is still bruised from when he dropped something on it almost 10 days ago. It's not affecting his ability to get up and walk around. There's not any pain I'm experiencing. He's going to talk to his primary about it. PT-OP-D Balance Start: 12/17/22 11:56 Freq: Status: Active Protocol: Document 12/21/22 11:53 [facility] (Rec: 12/21/22 13:39 [facility] [id number]) Balance Tests Single Limb Standing Single Limb- Right 6 sec a lot of deviation Single Limb- Left 4 sec a lot of deviation PT-OP-G Mobility & Gait Start: 12/17/22 11:56 Freq: Status: Active Protocol: Document 12/21/22 11:53 [facility] (Rec: 12/21/22 13:39 [facility] [id number]) OP Gait Assessment Comments Gait Comments amb w/ lat lean over LLE PT-OP-J Posture/Palpation/Skin Start: 12/17/22 11:56 Freq: Status: Active Protocol: Document 02/11/23 09:04 (Rec: 02/11/23 10:05 [id number]) Posture Evaluation Blaine Postural Classification System Blaine Postural Classifications Posterior/Anterior Lumbar Protective Mechanism Left AP 1 Lumbar Protective Mechanism Right AP 2 Lumbar Protective Mechanism Left PA 2 Lumbar Protective Mechanism Right PA 2 PT-OP-K Range of Motion Start: 12/17/22 11:56 Freq: Status: Active Protocol: Document 12/21/22 11:53 LR (Rec: 12/21/22 13:39 LR [id number]) Lumbar Spine Range of Motion Lumbar Spine Active Percentage Flexion 50 Extension 60 Rotation Left 50 Rotation Right 50 Lateral Flexion Left 75 Lateral Flexion Right 75 Comments some discomfort w/ext PT-OP-M Strength Start: 12/17/22 11:56 Freq: Status: Active Protocol: Document 02/11/23 09:04 (Rec: 02/11/23 10:05 [id number]) Hip Strength Hip Manual Muscle Testing Right Flexion (L2) 4 Good Extension (S1) 3+ Fair+ Abduction 4+ Good+ Adduction 3+ Fair+ External Rotation 5 Normal Internal Rotation 5 Normal Left Flexion (L2) 4+ Good+ Extension (S1) 3+ Fair+ Abduction 4- Good- Adduction 3+ Fair+ External Rotation 4 Good Internal Rotation 4 Good Knee Strength Knee Manual Muscle Testing Right Flexion (S2) 5 Normal Extension (L3) 5 Normal Left Flexion (S2) 5 Normal Extension (L3) 4 Good Ankle/Foot Strength Ankle and Foot Manual Muscle Testing Right Dorsiflexion (L4) 5 Normal Left Dorsiflexion (L4) 5 Normal PT-OP-Q Treatments Start: 12/17/22 11:56 Freq: Status: Active Protocol: Document 02/23/23 09:17 NBM (Rec: 02/23/23 10:14 NB [id number]) Therapeutic Exercises Standing Exercises hip hikes Standing Exercise Name 1. on step w/rail 2. w/ball at wall Side bilateral Equipment Used blue/white ball Reps/Minutes 1. 2x10 B 2. 12 ea Comments cues for pressing ball into wall to improve glute recruitment Balance Standing Exercise Name 1. slow dynamic marching w/ 3 sec hold - not today 2. SLS w/ CLOTH NAPPING SUPERVISOR prn Side bilateral Equipment Used no CLOTH NAPPING SUPERVISOR Reps/Minutes 12x ea Comments SL: R: 12, 19, 28s, L: 3s, 2s, 3s Neuro Re-Education Treatment Balance Activities Corner balance Details HEP: WBOS, NBOS, Staggered Mike , SLS Surface carpet Equipment corner, chair Reps/Duration 30s ea Comments EO/EC. Pt most challenged in staggered stance LLE back and SLS on L (7s max). Self-Care/Home Management Treatment Education Other Education Discussed pt's HEP compliance to date and issued Corner Balance HEP focus with ADHD tips for using a timer, phone/ email reminder, and reward system - HO given. PT-OP-T Assessment and Plan Start: 12/17/22 11:56 Freq: Status: Active Protocol: Document 02/23/23 09:17 NB (Rec: 02/23/23 10:14 [facility] [id number]) Physical Therapy Assessment Impairments Impairments Activity Tolerance,Balance, Functional Activities, Functional Mobility,Gait,Pain, Posture,ROM,Soft Tissue Mobility,Strength Goals strength Short Term Goal (STG) Pt will be indep w/HEP STG Duration 01/30 Flight Communications Operator Goal (LTG) Pt will score at least 3/5 on LPM and 5/5 on all LE MMT to show improved stabiltiy in order to dec instances of pain . LTG Duration 03/15 activities Flight Communications Operator Goal (LTG) Pt will be able to go for walks w/o inc pain (at least 3 miles) LTG Duration 03/02 NAN Impairment 14/50 02/11/23- Short Term Goal (STG) Pt iwll improve score to no greater than 9/50 to show imrpoved functional ability. 02/11/23- STG Duration Achieved 02/11/23 Flight Communications Operator Goal (LTG) Pt will improve score to no greater than 3/50 to show imrpoved functional ability. 02/11/23- LTG Duration Achieved 02/11/23 Assessment Summary Assessment Scott continues to be challengd with HEP compliance outside of walking and SL balance L>R and is encouraged to practice at home. SL stance trials today: R: 12, 19, 28s, L: 3s, 2s, 3s. Discussed pt's HEP compliance to date and issued Corner Balance HEP focus with ADHD tips for using a timer, phone/email reminder, and reward system - HO given. Physical Therapy Plan Frequency and Duration Frequency of Treatment 1-2x/wk Duration of treatment (weeks) 12 Plan of Care Start Date 12/21/22 Plan of Care End Date 03/15/23 Therapeutic Interventions Therapeutic Interventions Balance Training,Gait Training ,Home Exercise Program,Joint Mobilizations,Manual Therapy, Neuromuscular Re-education, Orthotic/Prosthetic Management ,Patient/Caregiver Education, Self-Care/Home Management,Soft Tissue Mobilization,Taping, Therapeutic Activities, Therapeutic Exercises Modalities Cold Pack/Ice Massage,Electric Stimulation,Hot Packs, Ultrasound Next Visit Focus/Plan Next Note Type Treatment Note Next Visit Plan Check HEP compliance w/ new corner balance progression. cont to work on pt ability to wt accept into LLE advance exercises as able; PNF for core stability, cont to work on hip and pelvis/lumbar mobility Manual- Hip ABD
--- NOTE | 2023-02-26 10:03 | PT.OTN ---
Current Diagnoses Dorsalgia, unspecified (02/26/23) Difficulty in walking, not elsewhere classified (02/26/23) Abnormal posture (02/26/23) Weakness (02/26/23) Physical Therapy Treatment Note PT-OP-A Visit Information Start: 12/17/22 11:56 Freq: Status: Active Protocol: Document 02/26/23 09:15 NB (Rec: 02/26/23 10:03 NB [id number]) Out-Patient Physical Therapy Visit Information Visit Information Visit Type Treatment Note Visit Note 11/25 Visit Start Time 09:16 Visit Stop Time 10:00 Total Visit Minutes 44 Visit Number 14 Number of PROPERTY INSURANCE INSPECTOR Visits 3 PT-OP-B Current Condition Start: 12/17/22 11:56 Freq: Status: Active Protocol: Document 12/21/22 11:53 [facility] (Rec: 12/21/22 13:39 [facility] [id number]) Current Condition History of Current Condition Onset Date 2 months ago Current Complaints LBP and L leg pain History of Current Condition Pt reports he has not had any back issues or concerns ever, but around his 72th bday. He doesn't have recolection of anything that caused it. tylenol didn't help and went to ER for tordal and mm relaxors and afew days later, it didn't better. Xray the 2nd time in ER and had oxycodone and neurotin and gabapentin and baclofen and that helped. Initally the pain was so bad, he was crawling to the bathroom and could barely get up. Pt saw Dr. Ahumada and he got an injection and he has been signifcantly better after this whre it is onlyl ow level pain. He saw a specialist in [place]. Pain started in LB and pretty soon after it was burning and painful in post thigh & lat bush and into dorsum of foot. Pt is hoping to go to [place] in the fall w/his . In the last couple weeks, he has seen Dr. Casiano for acupuncture. He has been off the oxy for a month. He has been off all meds for about 1- 2 weeks. he feels tired a little. 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 Pt is using a lumbar cusion behind his back . Pt reports if he stands any period of time, he starts to feel the pain as it just starts to ache a little. Pt reports his typical lifestyle is pretty sedentary. He has not riden his bike since this either. Prior Treatments and Tests Xray: IMPRESSION: Grade 1 isthmic spondylolisthesis at L5-S1, stable MRI lumbar: IMPRESSION: 1. At L5-S1, there are bilateral L5 pars defects, mild anterolisthesis of L5 on S1, and moderate to severe left foraminal narrowing, with left foraminal L5 nerve root impingement. 2. Mild multilevel facet arthropathy. Injection on 11/12/22 Treatment Goals Patient/Caregiver Goals be able to walk in [place] in afew months PT-OP-C Subjective Start: 12/17/22 11:56 Freq: Status: Active Protocol: Document 02/26/23 09:15 [facility] (Rec: 02/26/23 10:03 NB [id number]) OP-PT Subjective Patient Comments Patient Comments Scott reports he did some walking in [employer] stores and noticed a level of awareness in his L toe. He was able to practice corner balance at home. He will try to go for a 3-mi walk this weekend. PT-OP-D Balance Start: 12/17/22 11:56 Freq: Status: Active Protocol: Document 12/21/22 11:53 [facility] (Rec: 12/21/22 13:39 [facility] [id number]) Balance Tests Single Limb Standing Single Limb- Right 6 sec a lot of deviation Single Limb- Left 4 sec a lot of deviation PT-OP-G Mobility & Gait Start: 12/17/22 11:56 Freq: Status: Active Protocol: Document 12/21/22 11:53 [facility] (Rec: 12/21/22 13:39 [facility] [id number]) OP Gait Assessment Comments Gait Comments amb w/ lat lean over LLE PT-OP-J Posture/Palpation/Skin Start: 12/17/22 11:56 Freq: Status: Active Protocol: Document 02/11/23 09:04 (Rec: 02/11/23 10:05 [id number]) Posture Evaluation Blaine Postural Classification System Blaine Postural Classifications Posterior/Anterior Lumbar Protective Mechanism Left AP 1 Lumbar Protective Mechanism Right AP 2 Lumbar Protective Mechanism Left PA 2 Lumbar Protective Mechanism Right PA 2 PT-OP-K Range of Motion Start: 12/17/22 11:56 Freq: Status: Active Protocol: Document 12/21/22 11:53 [facility] (Rec: 12/21/22 13:39 [facility] [id number]) Lumbar Spine Range of Motion Lumbar Spine Active Percentage Flexion 50 Extension 60 Rotation Left 50 Rotation Right 50 Lateral Flexion Left 75 Lateral Flexion Right 75 Comments some discomfort w/ext PT-OP-M Strength Start: 12/17/22 11:56 Freq: Status: Active Protocol: Document 02/11/23 09:04 [facility] (Rec: 02/11/23 10:05 [facility] [id number]) Hip Strength Hip Manual Muscle Testing Right Flexion (L2) 4 Good Extension (S1) 3+ Fair+ Abduction 4+ Good+ Adduction 3+ Fair+ External Rotation 5 Normal Internal Rotation 5 Normal Left Flexion (L2) 4+ Good+ Extension (S1) 3+ Fair+ Abduction 4- Good- Adduction 3+ Fair+ External Rotation 4 Good Internal Rotation 4 Good Knee Strength Knee Manual Muscle Testing Right Flexion (S2) 5 Normal Extension (L3) 5 Normal Left Flexion (S2) 5 Normal Extension (L3) 4 Good Ankle/Foot Strength Ankle and Foot Manual Muscle Testing Right Dorsiflexion (L4) 5 Normal Left Dorsiflexion (L4) 5 Normal PT-OP-Q Treatments Start: 12/17/22 11:56 Freq: Status: Active Protocol: Document 02/26/23 09:15 [facility] (Rec: 02/26/23 10:03 [facility] [id number]) Therapeutic Exercises Sitting Exercises stretches Sitting Exercise Name 1.HS 2. figure 4 - seated Side bilateral Reps/Minutes 1 min ea Comments inc time for cues, pain-free ROM, reviewed positioning, tall sitting Other Exercises Quadruped Other Exercise Name 1. Cat/Cow 2. Alt UE lifts 3. Alt LE lifts Side bilateral Equipment Used tissue box on low back for biofeedback w/ LE lifts Reps/Minutes x10 ea Comments cues for set up, weight shifting, level pelvis Neuro Re-Education Treatment Balance Activities Corner balance Details HEP: WBOS, NBOS, Staggered Mike , SLS Surface carpet Equipment corner, chair Reps/Duration 30s ea Comments EO/EC. Pt most challenged w/ SLS EO on L (8s max). PT-OP-T Assessment and Plan Start: 12/17/22 11:56 Freq: Status: Active Protocol: Document 02/26/23 09:15 [facility] (Rec: 02/26/23 10:03 [facility] [id number]) Physical Therapy Assessment Impairments Impairments Activity Tolerance,Balance, Functional Activities, Functional Mobility,Gait,Pain, Posture,ROM,Soft Tissue Mobility,Strength Goals strength Short Term Goal (STG) Pt will be indep w/HEP STG Duration 01/30 [facility] Goal (LTG) Pt will score at least 3/5 on LPM and 5/5 on all LE MMT to show improved stabiltiy in order to dec instances of pain . LTG Duration 03/15 activities Rigging Foreman Goal (LTG) Pt will be able to go for walks w/o inc pain (at least 3 miles) LTG Duration 03/02 NAN Impairment 14/50 02/11/23- Short Term Goal (STG) Pt iwll improve score to no greater than 9/50 to show imrpoved functional ability. 02/11/23- STG Duration Achieved 02/11/23 Rigging Foreman Goal (LTG) Pt will improve score to no greater than 3/50 to show imrpoved functional ability. 02/11/23- LTG Duration Achieved 02/11/23 Assessment Summary Assessment Scott's balance is challenged with dual cognitive on motor task of talking while balancing so pt is encouraged to practice balance without talking initially. It improves with cueing for distal focal point and glute engagement. EOS SL balance R: 40s, 53s, 36s L: 6s, 8s, 2s. Pt most challenged w/ SLS EO on L (8s max) but improves from last visit. Pt's self-awareness of level pelvis with alt LE lifts in quadruped improves after practice w/ biofeedback then taken away. Physical Therapy Plan Frequency and Duration Frequency of Treatment 1-2x/wk Duration of treatment (weeks) 12 Plan of Care Start Date 12/21/22 Plan of Care End Date 03/15/23 Therapeutic Interventions Therapeutic Interventions Balance Training,Gait Training ,Home Exercise Program,Joint Mobilizations,Manual Therapy, Neuromuscular Re-education, Orthotic/Prosthetic Management ,Patient/Caregiver Education, Self-Care/Home Management,Soft Tissue Mobilization,Taping, Therapeutic Activities, Therapeutic Exercises Modalities Cold Pack/Ice Massage,Electric Stimulation,Hot Packs, Ultrasound Next Visit Focus/Plan Next Note Type Treatment Note Next Visit Plan Assess if walked 3 mi. Check HEP compliance w/ new corner balance progression. cont to work on pt ability to wt accept into LLE advance exercises as able; PNF for core stability, cont to work on hip and pelvis/lumbar mobility Manual- Hip ABD
--- NOTE | 2023-03-01 10:03 | PT.OTN ---
Current Diagnoses Dorsalgia, unspecified (03/01/23) Difficulty in walking, not elsewhere classified (03/01/23) Abnormal posture (03/01/23) Weakness (03/01/23) Physical Therapy Treatment Note PT-OP-A Visit Information Start: 12/17/22 11:56 Freq: Status: Active Protocol: Document 03/01/23 09:06 [facility] (Rec: 03/01/23 10:03 [facility] [id number]) Out-Patient Physical Therapy Visit Information Visit Information Visit Type Progress Note Visit Note 12/26 Visit Start Time 09:06 Visit Stop Time 09:46 Total Visit Minutes 40 Visit Number 15 Number of BINGO CASHIER Visits 0 PT-OP-B Current Condition Start: 12/17/22 11:56 Freq: Status: Active Protocol: Document 12/21/22 11:53 [facility] (Rec: 12/21/22 13:39 [facility] [id number]) Current Condition History of Current Condition Onset Date 2 months ago Current Complaints LBP and L leg pain History of Current Condition Pt reports he has not had any back issues or concerns ever, but around his 72th bday. He doesn't have recolection of anything that caused it. tylenol didn't help and went to ER for tordal and mm relaxors and afew days later, it didn't better. Xray the 2nd time in ER and had oxycodone and neurotin and gabapentin and baclofen and that helped. Initally the pain was so bad, he was crawling to the bathroom and could barely get up. Pt saw Dr. Ahumada and he got an injection and he has been signifcantly better after this whre it is onlyl ow level pain. He saw a specialist in [place]. Pain started in LB and pretty soon after it was burning and painful in post thigh & lat bush and into dorsum of foot. Pt is hoping to go to [place] in the fall w/his . In the last couple weeks, he has seen Dr. Casiano for acupuncture. He has been off the oxy for a month. He has been off all meds for about 1- 2 weeks. he feels tired a little. 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 Pt is using a lumbar cusion behind his back . Pt reports if he stands any period of time, he starts to feel the pain as it just starts to ache a little. Pt reports his typical lifestyle is pretty sedentary. He has not riden his bike since this either. Prior Treatments and Tests Xray: IMPRESSION: Grade 1 isthmic spondylolisthesis at L5-S1, stable MRI lumbar: IMPRESSION: 1. At L5-S1, there are bilateral L5 pars defects, mild anterolisthesis of L5 on S1, and moderate to severe left foraminal narrowing, with left foraminal L5 nerve root impingement. 2. Mild multilevel facet arthropathy. Injection on 11/12/22 Treatment Goals Patient/Caregiver Goals be able to walk in [place] in afew months PT-OP-C Subjective Start: 12/17/22 11:56 Freq: Status: Active Protocol: Document 03/01/23 09:06 [facility] (Rec: 03/01/23 10:03 [facility] [id number]) OP-PT Subjective Patient Comments Patient Comments Pt reports jose tired recently . He had some recalls w/sleep apnea machine so unsure if getting used to it. He had friends over and stood a bit and did some lifting on sat night. Bending over, he felt it more in L HS where it felt more tight. PT-OP-D Balance Start: 12/17/22 11:56 Freq: Status: Active Protocol: Document 12/21/22 11:53 [facility] (Rec: 12/21/22 13:39 [facility] [id number]) Balance Tests Single Limb Standing Single Limb- Right 6 sec a lot of deviation Single Limb- Left 4 sec a lot of deviation PT-OP-G Mobility & Gait Start: 12/17/22 11:56 Freq: Status: Active Protocol: Document 12/21/22 11:53 [facility] (Rec: 12/21/22 13:39 [facility] [id number]) OP Gait Assessment Comments Gait Comments amb w/ lat lean over LLE PT-OP-J Posture/Palpation/Skin Start: 12/17/22 11:56 Freq: Status: Active Protocol: Document 03/01/23 09:06 [facility] (Rec: 03/01/23 10:03 [facility] [id number]) Posture Evaluation Blaine Postural Classification System Blaine Postural Classifications Posterior/Anterior Lumbar Protective Mechanism Left AP 1 Lumbar Protective Mechanism Right AP 1 Lumbar Protective Mechanism Left PA 3 Lumbar Protective Mechanism Right PA 3 PT-OP-K Range of Motion Start: 12/17/22 11:56 Freq: Status: Active Protocol: Document 12/21/22 11:53 [facility] (Rec: 12/21/22 13:39 [facility] [id number]) Lumbar Spine Range of Motion Lumbar Spine Active Percentage Flexion 50 Extension 60 Rotation Left 50 Rotation Right 50 Lateral Flexion Left 75 Lateral Flexion Right 75 Comments some discomfort w/ext PT-OP-M Strength Start: 12/17/22 11:56 Freq: Status: Active Protocol: Document 03/01/23 09:06 [facility] (Rec: 03/01/23 10:03 [facility] [id number]) Hip Strength Hip Manual Muscle Testing Right Flexion (L2) 4 Good Extension (S1) 4 Good Abduction 5 Normal Adduction 5 Normal External Rotation 5 Normal Internal Rotation 5 Normal Left Flexion (L2) 4+ Good+ Extension (S1) 4 Good Abduction 4+ Good+ Adduction 5 Normal External Rotation 4 Good Internal Rotation 5 Normal Knee Strength Knee Manual Muscle Testing Right Flexion (S2) 5 Normal Extension (L3) 5 Normal Left Flexion (S2) 5 Normal Extension (L3) 5 Normal Ankle/Foot Strength Ankle and Foot Manual Muscle Testing Right Dorsiflexion (L4) 5 Normal Left Dorsiflexion (L4) 5 Normal PT-OP-Q Treatments Start: 12/17/22 11:56 Freq: Status: Active Protocol: Document 03/01/23 09:06 [facility] (Rec: 03/01/23 10:03 [facility] [id number]) Therapeutic Exercises Supine Exercises isometric Supine Exercise Name DL flex isometric Side bilateral Reps/Minutes 30 sec Comments cues for no breath holding, relax neck Neuro Re-Education Treatment Other Activities PNF Details L Reps/Duration 20 min Comments 1.ant elevation rhythmic initaition 2. ant elevation irradiation from LE to pelvis progressed to sustained hold 3. ant elevation w/ dissociation of LE from pelvis COI then pelvis from LE COI 3. full range COI LLE w/pelvis and LE pattern facilitation Reps/Duration 5 min Comments 1. chop pattern w/DL L facilitation w/1/2 foam roll under buttocks. Mult reps as pt fatigues quickly Self-Care/Home Management Treatment Education Other Education 5 min: discussion of gradually inc walking and trying to do 3 walks a week starting at 2 miles as he has been able to 1 .5 miles. Do not inc pain as he starts to inc. Edu to start on small hills before doing lg hills PT-OP-T Assessment and Plan Start: 12/17/22 11:56 Freq: Status: Active Protocol: Document 03/01/23 09:06 [facility] (Rec: 03/01/23 10:03 [facility] [id number]) Physical Therapy Assessment Goals strength Short Term Goal (STG) Pt will be indep w/HEP STG Duration achieved advancing as able Intermediate Goal (LTG) Pt will score at least 3/5 on LPM and 5/5 on all LE MMT to show improved stabiltiy in order to dec instances of pain . 03/01-improved LTG Duration 04/12 activities Intermediate Goal (LTG) Pt will be able to go for walks w/o inc pain (at least 3 miles) 03/01-no pain w/1.5 miles but hasn't tried more-occ dull ache L LTG Duration 04/12 NAN Impairment 14/50 02/11/23- Short Term Goal (STG) Pt iwll improve score to no greater than 9/50 to show imrpoved functional ability. 02/11/23- STG Duration Achieved 02/11/23 Intermediate Goal (LTG) Pt will improve score to no greater than 3/50 to show imrpoved functional ability. 02/11/23- LTG Duration Achieved 02/11/23 Assessment Summary Assessment Pt has made good progress w/PT but still has dec core activitation. He is occ having low level pain but is showing much improved overall LE strength. He would benefti from cont PT to wrok on LE strength (L>R), core facilitation and dec LBP and occ L post thigh pain (mild) w /standing activities. Physical Therapy Plan Frequency and Duration Frequency of Treatment 1-2x/wk Duration of treatment (weeks) 6 Plan of Care Start Date 03/01/23 Plan of Care End Date 04/12/23 Therapeutic Interventions Therapeutic Interventions Balance Training,Gait Training ,Home Exercise Program,Joint Mobilizations,Manual Therapy, Neuromuscular Re-education, Orthotic/Prosthetic Management ,Patient/Caregiver Education, Self-Care/Home Management,Soft Tissue Mobilization,Taping, Therapeutic Activities, Therapeutic Exercises Modalities Cold Pack/Ice Massage,Electric Stimulation,Hot Packs, Ultrasound Next Visit Focus/Plan Next Note Type Treatment Note Next Visit Plan cont to work on pnf to facilitate core. Try hip hinge and squat
--- NOTE | 2023-03-01 10:03 | PT.OPPOC ---
Physical, Occupational & Speech Therapy At [facility] Current Diagnoses Dorsalgia, unspecified (03/01/23) Difficulty in walking, not elsewhere classified (03/01/23) Abnormal posture (03/01/23) Weakness (03/01/23) Visit Care Team Role Provider Type Arash Casiano MD Attending Provider Physician Family Provider Primary Care Provider Referring Provider Specialty: Family Practice Address: [address] [place] [address], [facility] Email: [email or web address] Plan Of Care PT-OP-T Assessment and Plan Start: 12/17/22 11:56 Freq: Status: Active Protocol: Document 03/01/23 09:06 [facility] (Rec: 03/01/23 10:03 [facility] [id number]) Physical Therapy Assessment Goals strength Short Term Goal (STG) Pt will be indep w/HEP STG Duration achieved advancing as able Section Leader Goal (LTG) Pt will score at least 3/5 on LPM and 5/5 on all LE MMT to show improved stabiltiy in order to dec instances of pain . 03/01-improved LTG Duration 04/12 activities Group Home Goal (LTG) Pt will be able to go for walks w/o inc pain (at least 3 miles) 03/01-no pain w/1.5 miles but hasn't tried more-occ dull ache L LTG Duration 04/12 NAN Impairment 1450 02/11/23- Short Term Goal (STG) Pt iwll improve score to no greater than 9/50 to show imrpoved functional ability. 02/11/23- STG Duration Achieved 02/11/23 Group Home Goal (LTG) Pt will improve score to no greater than 3/50 to show imrpoved functional ability. 02/11/23- LTG Duration Achieved 02/11/23 Assessment Summary Assessment Pt has made good progress w/PT but still has dec core activitation. He is occ having low level pain but is showing much improved overall LE strength. He would benefti from cont PT to wrok on LE strength (L>R), core facilitation and dec LBP and occ L post thigh pain (mild) w /standing activities. Physical Therapy Plan Frequency and Duration Frequency of Treatment 1-2x/wk Duration of treatment (weeks) 6 Plan of Care Start Date 03/01/23 Plan of Care End Date 04/12/23 Therapeutic Interventions Therapeutic Interventions Balance Training,Gait Training ,Home Exercise Program,Joint Mobilizations,Manual Therapy, Neuromuscular Re-education, Orthotic/Prosthetic Management ,Patient/Caregiver Education, Self-Care/Home Management,Soft Tissue Mobilization,Taping, Therapeutic Activities, Therapeutic Exercises Modalities Cold Pack/Ice Massage,Electric Stimulation,Hot Packs, Ultrasound Next Visit Focus/Plan Next Note Type Treatment Note Next Visit Plan cont to work on pnf to facilitate core. Try hip hinge and squat Plan of Care Dates Plan of Care Start Date 03/01/23 Plan of Care End Date 04/12/23 Electronically Signed by: Rose Mary Olmos, PT 03/01/23 1000 If you are in agreement with this Plan of Care, please return a signed and dated copy. I have reviewed this Plan of Care and certify that the skilled therapy services above are required to meet the patient?s needs. Physician Signature Date Printed Name and Credentials Clinical Instructor Signature Printed Name and Credentials
--- NOTE | 2023-03-04 11:57 | PT.OTN ---
Current Diagnoses Dorsalgia, unspecified (03/04/23) Difficulty in walking, not elsewhere classified (03/04/23) Abnormal posture (03/04/23) Weakness (03/04/23) Physical Therapy Treatment Note PT-OP-A Visit Information Start: 12/17/22 11:56 Freq: Status: Active Protocol: Document 03/04/23 09:13 [facility] (Rec: 03/04/23 11:57 [facility] [id number]) Out-Patient Physical Therapy Visit Information Visit Information Visit Type Treatment Note Visit Note 01/25 Visit Start Time 09:07 Visit Stop Time 09:48 Total Visit Minutes 41 Visit Number 16 Number of SUPERVISOR CELL MAINTENANCE Visits 0 PT-OP-B Current Condition Start: 12/17/22 11:56 Freq: Status: Active Protocol: Document 12/21/22 11:53 [facility] (Rec: 12/21/22 13:39 [facility] [id number]) Current Condition History of Current Condition Onset Date 2 months ago Current Complaints LBP and L leg pain History of Current Condition Pt reports he has not had any back issues or concerns ever, but around his 72th bday. He doesn't have recolection of anything that caused it. tylenol didn't help and went to ER for tordal and mm relaxors and afew days later, it didn't better. Xray the 2nd time in ER and had oxycodone and neurotin and gabapentin and baclofen and that helped. Initally the pain was so bad, he was crawling to the bathroom and could barely get up. Pt saw Dr. Ahumada and he got an injection and he has been signifcantly better after this whre it is onlyl ow level pain. He saw a specialist in [place]. Pain started in LB and pretty soon after it was burning and painful in post thigh & lat bush and into dorsum of foot. Pt is hoping to go to [place] in the fall w/his . In the last couple weeks, he has seen Dr. Casiano for acupuncture. He has been off the oxy for a month. He has been off all meds for about 1- 2 weeks. he feels tired a little. 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 Pt is using a lumbar cusion behind his back . Pt reports if he stands any period of time, he starts to feel the pain as it just starts to ache a little. Pt reports his typical lifestyle is pretty sedentary. He has not riden his bike since this either. Prior Treatments and Tests Xray: IMPRESSION: Grade 1 isthmic spondylolisthesis at L5-S1, stable MRI lumbar: IMPRESSION: 1. At L5-S1, there are bilateral L5 pars defects, mild anterolisthesis of L5 on S1, and moderate to severe left foraminal narrowing, with left foraminal L5 nerve root impingement. 2. Mild multilevel facet arthropathy. Injection on 11/12/22 Treatment Goals Patient/Caregiver Goals be able to walk in [place] in afew months PT-OP-C Subjective Start: 12/17/22 11:56 Freq: Status: Active Protocol: Document 03/04/23 09:13 [facility] (Rec: 03/04/23 11:57 [facility] [id number]) OP-PT Subjective Patient Comments Patient Comments Pt reports he has been biking recently but not walking d/t heat PT-OP-D Balance Start: 12/17/22 11:56 Freq: Status: Active Protocol: Document 12/21/22 11:53 [facility] (Rec: 12/21/22 13:39 [facility] [id number]) Balance Tests Single Limb Standing Single Limb- Right 6 sec a lot of deviation Single Limb- Left 4 sec a lot of deviation PT-OP-G Mobility & Gait Start: 12/17/22 11:56 Freq: Status: Active Protocol: Document 12/21/22 11:53 [facility] (Rec: 12/21/22 13:39 [facility] [id number]) OP Gait Assessment Comments Gait Comments amb w/ lat lean over LLE PT-OP-J Posture/Palpation/Skin Start: 12/17/22 11:56 Freq: Status: Active Protocol: Document 03/01/23 09:06 [facility] (Rec: 03/01/23 10:03 [facility] [id number]) Posture Evaluation Blaine Postural Classification System Blaine Postural Classifications Posterior/Anterior Lumbar Protective Mechanism Left AP 1 Lumbar Protective Mechanism Right AP 1 Lumbar Protective Mechanism Left PA 3 Lumbar Protective Mechanism Right PA 3 PT-OP-K Range of Motion Start: 12/17/22 11:56 Freq: Status: Active Protocol: Document 12/21/22 11:53 [facility] (Rec: 12/21/22 13:39 [facility] [id number]) Lumbar Spine Range of Motion Lumbar Spine Active Percentage Flexion 50 Extension 60 Rotation Left 50 Rotation Right 50 Lateral Flexion Left 75 Lateral Flexion Right 75 Comments some discomfort w/ext PT-OP-M Strength Start: 12/17/22 11:56 Freq: Status: Active Protocol: Document 03/01/23 09:06 [facility] (Rec: 03/01/23 10:03 [facility] [id number]) Hip Strength Hip Manual Muscle Testing Right Flexion (L2) 4 Good Extension (S1) 4 Good Abduction 5 Normal Adduction 5 Normal External Rotation 5 Normal Internal Rotation 5 Normal Left Flexion (L2) 4+ Good+ Extension (S1) 4 Good Abduction 4+ Good+ Adduction 5 Normal External Rotation 4 Good Internal Rotation 5 Normal Knee Strength Knee Manual Muscle Testing Right Flexion (S2) 5 Normal Extension (L3) 5 Normal Left Flexion (S2) 5 Normal Extension (L3) 5 Normal Ankle/Foot Strength Ankle and Foot Manual Muscle Testing Right Dorsiflexion (L4) 5 Normal Left Dorsiflexion (L4) 5 Normal PT-OP-Q Treatments Start: 12/17/22 11:56 Freq: Status: Active Protocol: Document 03/04/23 09:13 [facility] (Rec: 03/04/23 11:57 [facility] [id number]) Gym Equipment Sport Cord resisted gait Cord/Resistance red Comments 15 x cues for push off Therapeutic Exercises Standing Exercises DF Standing Exercise Name DL w/back at wall Side bilateral Reps/Minutes 20 PF Side left Reps/Minutes 20 Comments cues not to let knee bend hip hikes Side bilateral Equipment Used step Reps/Minutes 10 Comments cues for core engagment of opp side Gait Training Gait Activity resisted gait Comments w/dowel 50ft x2 Neuro Re-Education Treatment Other Activities PNF Details L Comments 1.ant elevation rhythmic initaition 2. ant elevation irradiation from LE to pelvis progressed to sustained hold 3.mass flexion irradiation from ant dep scap L to L pelvis 3. full range COI LLE w/pelvis and LE pattern PT-OP-T Assessment and Plan Start: 12/17/22 11:56 Freq: Status: Active Protocol: Document 03/04/23 09:13 [facility] (Rec: 03/04/23 11:57 [facility] [id number]) Physical Therapy Assessment Goals strength Short Term Goal (STG) Pt will be indep w/HEP STG Duration achieved advancing as able Intermediate Goal (LTG) Pt will score at least 3/5 on LPM and 5/5 on all LE MMT to show improved stabiltiy in order to dec instances of pain . 03/01-improved LTG Duration 04/12 activities Intermediate Goal (LTG) Pt will be able to go for walks w/o inc pain (at least 3 miles) 03/01-no pain w/1.5 miles but hasn't tried more-occ dull ache L LTG Duration 04/12 NAN Impairment 02/11/23- Short Term Goal (STG) Pt iwll improve score to no greater than 9/50 to show imrpoved functional ability. 02/11/23- STG Duration Achieved 02/11/23 Intermediate Goal (LTG) Pt will improve score to no greater than 3/50 to show imrpoved functional ability. 02/11/23- LTG Duration Achieved 02/11/23 Assessment Summary Assessment Pt has overall dec push off which did improve w/training and exercises to improve this. Pt had improved core response w/use of PNF. He does have weakness and dec activity tolerance of L ankle. Physical Therapy Plan Frequency and Duration Frequency of Treatment 1-2x/wk Duration of treatment (weeks) 6 Plan of Care Start Date 03/01/23 Plan of Care End Date 04/12/23 Next Visit Focus/Plan Next Note Type Treatment Note Next Visit Plan cont to work on pnf to facilitate core. start hip hinge and squat
--- NOTE | 2023-03-09 14:43 | PT.OTN ---
Current Diagnoses Dorsalgia, unspecified (03/09/23) Difficulty in walking, not elsewhere classified (03/09/23) Abnormal posture (03/09/23) Weakness (03/09/23) Physical Therapy Treatment Note PT-OP-A Visit Information Start: 12/17/22 11:56 Freq: Status: Active Protocol: Document 03/09/23 12:47 [facility] (Rec: 03/09/23 14:43 [facility] [id number]) Out-Patient Physical Therapy Visit Information Visit Information Visit Type Treatment Note Visit Note 02/25 Visit Start Time 12:47 Visit Stop Time 13:30 Total Visit Minutes 43 Visit Number 17 Number of RAILCAR BRAKE OPERATOR Visits 0 PT-OP-B Current Condition Start: 12/17/22 11:56 Freq: Status: Active Protocol: Document 12/21/22 11:53 [facility] (Rec: 12/21/22 13:39 [facility] [id number]) Current Condition History of Current Condition Onset Date 2 months ago Current Complaints LBP and L leg pain History of Current Condition Pt reports he has not had any back issues or concerns ever, but around his 72th bday. He doesn't have recolection of anything that caused it. tylenol didn't help and went to ER for tordal and mm relaxors and afew days later, it didn't better. Xray the 2nd time in ER and had oxycodone and neurotin and gabapentin and baclofen and that helped. Initally the pain was so bad, he was crawling to the bathroom and could barely get up. Pt saw Dr. Ahumada and he got an injection and he has been signifcantly better after this whre it is onlyl ow level pain. He saw a specialist in [place]. Pain started in [place] and pretty soon after it was burning and painful in post thigh & lat bush and into dorsum of foot. Pt is hoping to go to [place] in the fall w/his . In the last couple weeks, he has seen Dr. Casiano for acupuncture. He has been off the oxy for a month. He has been off all meds for about 1- 2 weeks. he feels tired a little. 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 Pt is using a lumbar cusion behind his back . Pt reports if he stands any period of time, he starts to feel the pain as it just starts to ache a little. Pt reports his typical lifestyle is pretty sedentary. He has not riden his bike since this either. Prior Treatments and Tests Xray: IMPRESSION: Grade 1 isthmic spondylolisthesis at L5-S1, stable MRI lumbar: IMPRESSION: 1. At L5-S1, there are bilateral L5 pars defects, mild anterolisthesis of L5 on S1, and moderate to severe left foraminal narrowing, with left foraminal L5 nerve root impingement. 2. Mild multilevel facet arthropathy. Injection on 11/12/22 Treatment Goals Patient/Caregiver Goals be able to walk in [place] in afew months PT-OP-C Subjective Start: 12/17/22 11:56 Freq: Status: Active Protocol: Document 03/09/23 12:47 [facility] (Rec: 03/09/23 14:43 [facility] [id number]) OP-PT Subjective Patient Comments Patient Comments Pt reports he has done some walks of 2-3 miles and donew ell. DOes note a little more soreness in L calf/HS but does not seem like pain PT-OP-D Balance Start: 12/17/22 11:56 Freq: Status: Active Protocol: Document 12/21/22 11:53 [facility] (Rec: 12/21/22 13:39 [facility] [id number]) Balance Tests Single Limb Standing Single Limb- Right 6 sec a lot of deviation Single Limb- Left 4 sec a lot of deviation PT-OP-G Mobility & Gait Start: 12/17/22 11:56 Freq: Status: Active Protocol: Document 12/21/22 11:53 [facility] (Rec: 12/21/22 13:39 [facility] [id number]) OP Gait Assessment Comments Gait Comments amb w/ lat lean over LLE PT-OP-J Posture/Palpation/Skin Start: 12/17/22 11:56 Freq: Status: Active Protocol: Document 03/01/23 09:06 [facility] (Rec: 03/01/23 10:03 [facility] [id number]) Posture Evaluation Blaine Postural Classification System Blaine Postural Classifications Posterior/Anterior Lumbar Protective Mechanism Left AP 1 Lumbar Protective Mechanism Right AP 1 Lumbar Protective Mechanism Left PA 3 Lumbar Protective Mechanism Right PA 3 PT-OP-K Range of Motion Start: 12/17/22 11:56 Freq: Status: Active Protocol: Document 12/21/22 11:53 [facility] (Rec: 12/21/22 13:39 [facility] [id number]) Lumbar Spine Range of Motion Lumbar Spine Active Percentage Flexion 50 Extension 60 Rotation Left 50 Rotation Right 50 Lateral Flexion Left 75 Lateral Flexion Right 75 Comments some discomfort w/ext PT-OP-M Strength Start: 12/17/22 11:56 Freq: Status: Active Protocol: Document 03/01/23 09:06 [facility] (Rec: 03/01/23 10:03 [facility] [id number]) Hip Strength Hip Manual Muscle Testing Right Flexion (L2) 4 Good Extension (S1) 4 Good Abduction 5 Normal Adduction 5 Normal External Rotation 5 Normal Internal Rotation 5 Normal Left Flexion (L2) 4+ Good+ Extension (S1) 4 Good Abduction 4+ Good+ Adduction 5 Normal External Rotation 4 Good Internal Rotation 5 Normal Knee Strength Knee Manual Muscle Testing Right Flexion (S2) 5 Normal Extension (L3) 5 Normal Left Flexion (S2) 5 Normal Extension (L3) 5 Normal Ankle/Foot Strength Ankle and Foot Manual Muscle Testing Right Dorsiflexion (L4) 5 Normal Left Dorsiflexion (L4) 5 Normal PT-OP-Q Treatments Start: 12/17/22 11:56 Freq: Status: Active Protocol: Document 03/09/23 12:47 [facility] (Rec: 03/09/23 14:43 [facility] [id number]) Therapeutic Exercises Prone Exercises hip ext Prone Exercise Name TKE to hip ext Side bilateral Reps/Minutes 5 sec holds x10 Standing Exercises gait at wall Side bilateral Reps/Minutes 5 sec x6 ea Therapeutic Activity Therapeutic Activity lifting Reps/Minutes 25 min Comments 1. hpi hinging w/dowel w/amax cues w/edu on importance of mechanics 2. squat w/dowel on back to bend to lift 3. squat over chair working on knee position Gait Training Gait Activity resisted gait Comments w/dowel 50ft x2 Manual Therapy Treatment Joint Mobilizations lumbar Joint L4 and 5 ext FM w/press up innominate Joint B ext FM PT-OP-T Assessment and Plan Start: 12/17/22 11:56 Freq: Status: Active Protocol: Document 03/09/23 12:47 [facility] (Rec: 03/09/23 14:43 [facility] [id number]) Physical Therapy Assessment Goals strength Short Term Goal (STG) Pt will be indep w/HEP STG Duration achieved advancing as able Weaving Inspector Goal (LTG) Pt will score at least 3/5 on LPM and 5/5 on all LE MMT to show improved stabiltiy in order to dec instances of pain . 03/01-improved LTG Duration 04/12 activities Fdc Goal (LTG) Pt will be able to go for walks w/o inc pain (at least 3 miles) 03/01-no pain w/1.5 miles but hasn't tried more-occ dull ache L LTG Duration 04/12 NAN Impairment 02/11/23- Short Term Goal (STG) Pt iwll improve score to no greater than 9/50 to show imrpoved functional ability. 02/11/23- STG Duration Achieved 02/11/23 Fdc Goal (LTG) Pt will improve score to no greater than 3/50 to show imrpoved functional ability. 02/11/23- LTG Duration Achieved 02/11/23 Assessment Summary Assessment Pt educated to monitor re: LE discomfort after walks and if inc then to let PT know and do less walking. Pt had difficulty w/lifting mechanics and needed extensive education re; importance of using hips and knee to use bigger mm vs back. He did improve by end. Still gets dec hip ext w/gait. Physical Therapy Plan Frequency and Duration Frequency of Treatment 1-2x/wk Duration of treatment (weeks) 6 Plan of Care Start Date 03/01/23 Plan of Care End Date 04/12/23 Next Visit Focus/Plan Next Note Type Treatment Note Next Visit Plan review hip hinge and squat and cont to work on appropriate hip ext
--- NOTE | 2023-03-31 18:38 | PT.OTN ---
Current Diagnoses Dorsalgia, unspecified (03/31/23) Difficulty in walking, not elsewhere classified (03/31/23) Abnormal posture (03/31/23) Weakness (03/31/23) Physical Therapy Treatment Note PT-OP-A Visit Information Start: 12/17/22 11:56 Freq: Status: Active Protocol: Document 03/31/23 10:48 [facility] (Rec: 03/31/23 18:38 [facility] [id number]) Out-Patient Physical Therapy Visit Information Visit Information Visit Type Progress Note Visit Note 07/28 Visit Start Time 10:48 Visit Stop Time 11:35 Total Visit Minutes 47 Visit Number 18 Number of GUEST SERVICE AGENT Visits 0 PT-OP-B Current Condition Start: 12/17/22 11:56 Freq: Status: Active Protocol: Document 12/21/22 11:53 [facility] (Rec: 12/21/22 13:39 [facility] [id number]) Current Condition History of Current Condition Onset Date 2 months ago Current Complaints LBP and L leg pain History of Current Condition Pt reports he has not had any back issues or concerns ever, but around his 72th bday. He doesn't have recolection of anything that caused it. tylenol didn't help and went to ER for tordal and mm relaxors and afew days later, it didn't better. Xray the 2nd time in ER and had oxycodone and neurotin and gabapentin and baclofen and that helped. Initally the pain was so bad, he was crawling to the bathroom and could barely get up. Pt saw Dr. Ahumada and he got an injection and he has been signifcantly better after this whre it is onlyl ow level pain. He saw a specialist in [place]. Pain started in LB and pretty soon after it was burning and painful in post thigh & lat bush and into dorsum of foot. Pt is hoping to go to [place] in the fall w/his . In the last couple weeks, he has seen Dr. Casiano for acupuncture. He has been off the oxy for a month. He has been off all meds for about 1- 2 weeks. he feels tired a little. 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 Pt is using a lumbar cusion behind his back . Pt reports if he stands any period of time, he starts to feel the pain as it just starts to ache a little. Pt reports his typical lifestyle is pretty sedentary. He has not riden his bike since this either. Prior Treatments and Tests Xray: IMPRESSION: Grade 1 isthmic spondylolisthesis at L5-S1, stable MRI lumbar: IMPRESSION: 1. At L5-S1, there are bilateral L5 pars defects, mild anterolisthesis of L5 on S1, and moderate to severe left foraminal narrowing, with left foraminal L5 nerve root impingement. 2. Mild multilevel facet arthropathy. Injection on 11/12/22 Treatment Goals Patient/Caregiver Goals be able to walk in [place] in afew months PT-OP-C Subjective Start: 12/17/22 11:56 Freq: Status: Active Protocol: Document 03/31/23 10:48 [facility] ([id number]PT Subjective Patient Comments Patient Comments Pt reports a tingling occ in post thigh and sup foot. He saw Dr. Ahumada who told him he could resume gabapentin. Sometimes, when walking he feels more with hills. He has not been walking a ton. PT-OP-D Balance Start: 12/17/22 11:56 Freq: Status: Active Protocol: Document 12/21/22 11:53 [facility] (Rec: 12/21/22 13:39 [facility] [id number]) Balance Tests Single Limb Standing Single Limb- Right 6 sec a lot of deviation Single Limb- Left 4 sec a lot of deviation PT-OP-G Mobility & Gait Start: 12/17/22 11:56 Freq: Status: Active Protocol: Document 12/21/22 11:53 [facility] (Rec: 12/21/22 13:39 [facility] [id number]) OP Gait Assessment Comments Gait Comments amb w/ lat lean over LLE PT-OP-J Posture/Palpation/Skin Start: 12/17/22 11:56 Freq: Status: Active Protocol: Document 03/31/23 10:48 [facility] (Rec: 03/31/23 18:38 [facility] [id number]) Posture Evaluation Blaine Postural Classification System Lumbar Protective Mechanism Left AP 2 Lumbar Protective Mechanism Right AP 2 Lumbar Protective Mechanism Left PA 2 Lumbar Protective Mechanism Right PA 2 PT-OP-K Range of Motion Start: 12/17/22 11:56 Freq: Status: Active Protocol: Document 12/21/22 11:53 [facility] (Rec: 12/21/22 13:39 [id number] Lumbar Spine Range of Motion Lumbar Spine Active Percentage Flexion 50 Extension 60 Rotation Left 50 Rotation Right 50 Lateral Flexion Left 75 Lateral Flexion Right 75 Comments some discomfort w/ext PT-OP-M Strength Start: 12/17/22 11:56 Freq: Status: Active Protocol: Document 03/31/23 10:48 [facility] ([facility]31/23 18[facility]38 [id number] Hip Strength Hip Manual Muscle Testing Right Flexion (L2) 5 Normal Extension (S1) 4 Good Abduction 5 Normal Adduction 5 Normal External Rotation 5 Normal Internal Rotation 5 Normal Left Flexion (L2) 5 Normal Extension (S1) 4 Good Abduction 5 Normal Adduction 5 Normal External Rotation 4+ Good+ Internal Rotation 5 Normal Comments all planes LPM 2/5 Knee Strength Knee Manual Muscle Testing Right Flexion (S2) 5 Normal Extension (L3) 5 Normal Left Flexion (S2) 5 Normal Extension (L3) 5 Normal Ankle/Foot Strength Ankle and Foot Manual Muscle Testing Right Dorsiflexion (L4) 5 Normal Plantarflexion (S1) 5 Normal Left Dorsiflexion (L4) 5 Normal Plantarflexion (S1) 5 Normal Comments 20 heels raises B (higher lift on R PT-OP-Q Treatments Start: 12/17/22 11:56 Freq: Status: Active Protocol: Document 03/31/23 10:48 [facility] (Rec: 03/31/23 18:38 [facility] [id number]) Therapeutic Exercises Prone Exercises hip ext Prone Exercise Name alt Side bilateral Reps/Minutes 15 ea Manual Therapy Treatment Joint Mobilizations lumbar Joint L4 and 5 ext FM w/press up (L> R) innominate Joint L ext FM Self-Care/Home Management Treatment Education Other Education 18 min:edu re: difference btwn meds he planned to bring ( maloxicam vs tylenol vs alieve vs advil); edu maloxicam, alieve, advil all NSAIDS and are not to be taken together unless MD says okay. Edu that tylenol just blocks pain and is not anti inflamatory. Pt reports fatigue and encourage pt to discuss w/doctor about considering B vitamin. Edu re: stretches to do on plane (HS, calf, piriformis, hip flexor) in sitting and standing and gettign up occ. Dicsussed listeningt ohis body when walking on [place] and taking rest breaks seated as needed and to ice as needed. PT-OP-T Assessment and Plan Start: 12/17/22 11:56 Freq: Status: Active Protocol: Document 03/31/23 10:48 [facility] (Rec: 03/31/23 18:38 [facility] [id number]) Physical Therapy Assessment Goals strength Short Term Goal (STG) Pt will be indep w/HEP STG Duration achieved advancing as able Email Designer Goal (LTG) Pt will score at least 3/5 on LPM and 5/5 on all LE MMT to show improved stabiltiy in order to dec instances of pain . 03/01-improved 03/31-improved LTG Duration 06/03 activities Care Home Goal (LTG) Pt will be able to go for walks w/o inc pain (at least 3 miles) 03/01-no pain w/1.5 miles but hasn't tried more-occ dull ache L 03/31-2 miles but some fatigue or ache in L LTG Duration 06/03 NAN Impairment 14/50 02/11/23- Short Term Goal (STG) Pt iwll improve score to no greater than 9/50 to show imrpoved functional ability. 02/11/23- STG Duration Achieved 02/11/23 Email Designer Goal (LTG) Pt will improve score to no greater than 3/50 to show imrpoved functional ability. 02/11/23- LTG Duration Achieved 02/11/23 Assessment Summary Assessment Pt is making progress w/PT and showing much improved strength and functional ability overall but does still get symptoms w/a lot of activity, although mild. Pt is going on vacation for 1 month and will follow up upon pt return to make sure pt set w/ HEP for cont strength and pain relief. Physical Therapy Plan Frequency and Duration Frequency of Treatment 1x/wk Duration of treatment (weeks) 8 Plan of Care Start Date 03/31/23 Plan of Care End Date 06/03/23 Therapeutic Interventions Therapeutic Interventions Balance Training,Gait Training ,Home Exercise Program,Joint Mobilizations,Manual Therapy, Neuromuscular Re-education, Orthotic/Prosthetic Management ,Patient/Caregiver Education, Self-Care/Home Management,Soft Tissue Mobilization,Taping, Therapeutic Activities, Therapeutic Exercises Modalities Cold Pack/Ice Massage,Electric Stimulation,Hot Packs, Ultrasound Next Visit Focus/Plan Next Note Type Treatment Note Next Visit Plan review hip hinge and squat and cont to work on appropriate hip ext
--- NOTE | 2023-03-31 18:38 | PT.OPPOC ---
Physical, Occupational & Speech Therapy At [facility] Current Diagnoses Dorsalgia, unspecified (03/31/23) Difficulty in walking, not elsewhere classified (03/31/23) Abnormal posture (03/31/23) Weakness (03/31/23) Visit Care Team Role Provider Type Arash Casiano MD Attending Provider Physician Family Provider Primary Care Provider Referring Provider Specialty: Family Practice Address: [address] [place] [address], [facility] Email: [email or web address] Plan Of Care PT-OP-T Assessment and Plan Start: 12/17/22 11:56 Freq: Status: Active Protocol: Document 03/31/23 10:48 [facility] (Rec: 03/31/23 18:38 [facility] [id number]) Physical Therapy Assessment Goals strength Short Term Goal (STG) Pt will be indep w/HEP STG Duration achieved advancing as able Cloth Winding Supervisor Goal (LTG) Pt will score at least 3/5 on LPM and 5/5 on all LE MMT to show improved stabiltiy in order to dec instances of pain . 03/01-improved 03/31-improved LTG Duration 06/03 activities Cloth Winding Supervisor Goal (LTG) Pt will be able to go for walks w/o inc pain (at least 3 miles) 03/01-no pain w/1.5 miles but hasn't tried more-occ dull ache L 03/31-2 miles but some fatigue or ache in L LTG Duration 06/03 NAN Impairment 1450 02/11/23- Short Term Goal (STG) Pt iwll improve score to no greater than 9/50 to show imrpoved functional ability. 02/11/23- STG Duration Achieved 02/11/23 Halfway Goal (LTG) Pt will improve score to no greater than 3/50 to show imrpoved functional ability. 02/11/23- LTG Duration Achieved 02/11/23 Assessment Summary Assessment Pt is making progress w/PT and showing much improved strength and functional ability overall but does still get symptoms w/a lot of activity, although mild. Pt is going on vacation for 1 month and will follow up upon pt return to make sure pt set w/ HEP for cont strength and pain relief. Physical Therapy Plan Frequency and Duration Frequency of Treatment 1x/wk Duration of treatment (weeks) 8 Plan of Care Start Date 03/31/23 Plan of Care End Date 06/03/23 Therapeutic Interventions Therapeutic Interventions Balance Training,Gait Training ,Home Exercise Program,Joint Mobilizations,Manual Therapy, Neuromuscular Re-education, Orthotic/Prosthetic Management ,Patient/Caregiver Education, Self-Care/Home Management,Soft Tissue Mobilization,Taping, Therapeutic Activities, Therapeutic Exercises Modalities Cold Pack/Ice Massage,Electric Stimulation,Hot Packs, Ultrasound Next Visit Focus/Plan Next Note Type Treatment Note Next Visit Plan review hip hinge and squat and cont to work on appropriate hip ext Plan of Care Dates Plan of Care Start Date 03/31/23 Plan of Care End Date 06/03/23 Electronically Signed by: Rose Mary Olmos, PT 03/31/23 1918 If you are in agreement with this Plan of Care, please return a signed and dated copy. I have reviewed this Plan of Care and certify that the skilled therapy services above are required to meet the patient?s needs. Physician Signature Date Printed Name and Credentials Clinical Instructor Signature Printed Name and Credentials
--- NOTE | 2023-04-29 18:30 | PT.OTN ---
Current Diagnoses Dorsalgia, unspecified (04/29/23) Difficulty in walking, not elsewhere classified (04/29/23) Abnormal posture (04/29/23) Weakness (04/29/23) Physical Therapy Treatment Note PT-OP-A Visit Information Start: 12/17/22 11:56 Freq: Status: Active Protocol: Document 04/29/23 08:50 [facility] (Rec: 04/29/23 15:17 [facility] [id number]) Out-Patient Physical Therapy Visit Information Visit Information Visit Type Progress Note Visit Note 07/28 Visit Start Time 09:02 Visit Stop Time 09:50 Total Visit Minutes 48 Visit Number 19 Number of RETAIL FIELD SUPERVISOR Visits 0 PT-OP-B Current Condition Start: 12/17/22 11:56 Freq: Status: Active Protocol: Document 12/21/22 11:53 [facility] (Rec: 12/21/22 13:39 [facility] [id number]) Current Condition History of Current Condition Onset Date 2 months ago Current Complaints LBP and L leg pain History of Current Condition Pt reports he has not had any back issues or concerns ever, but around his 72th bday. He doesn't have recolection of anything that caused it. tylenol didn't help and went to ER for tordal and mm relaxors and afew days later, it didn't better. Xray the 2nd time in ER and had oxycodone and neurotin and gabapentin and baclofen and that helped. Initally the pain was so bad, he was crawling to the bathroom and could barely get up. Pt saw Dr. Ahumada and he got an injection and he has been signifcantly better after this whre it is onlyl ow level pain. He saw a specialist in [place]. Pain started in LB and pretty soon after it was burning and painful in post thigh & lat bush and into dorsum of foot. Pt is hoping to go to [place] in the fall w/his . In the last couple weeks, he has seen Dr. Casiano for acupuncture. He has been off the oxy for a month. He has been off all meds for about 1- 2 weeks. he feels tired a little. 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 Pt is using a lumbar cusion behind his back . Pt reports if he stands any period of time, he starts to feel the pain as it just starts to ache a little. Pt reports his typical lifestyle is pretty sedentary. He has not riden his bike since this either. Prior Treatments and Tests Xray: IMPRESSION: Grade 1 isthmic spondylolisthesis at L5-S1, stable MRI lumbar: IMPRESSION: 1. At L5-S1, there are bilateral L5 pars defects, mild anterolisthesis of L5 on S1, and moderate to severe left foraminal narrowing, with left foraminal L5 nerve root impingement. 2. Mild multilevel facet arthropathy. Injection on 11/12/22 Treatment Goals Patient/Caregiver Goals be able to walk in [place] in afew months PT-OP-C Subjective Start: 12/17/22 11:56 Freq: Status: Active Protocol: Document 04/29/23 08:50 [facility] (Rec: 04/29/23 15:17 [facility] [id number]) OP-PT Subjective Patient Comments Patient Comments Pt reports on the 4th day, he did a lot of cobblestone walking and hill walking and his back pain inc along w/pain in HS. His had him see a doctor who gave him steroids and tramadol PT-OP-D Balance Start: 12/17/22 11:56 Freq: Status: Active Protocol: Document 12/21/22 11:53 [facility] (Rec: 12/21/22 13:39 [facility] [id number]) Balance Tests Single Limb Standing Single Limb- Right 6 sec a lot of deviation Single Limb- Left 4 sec a lot of deviation PT-OP-G Mobility & Gait Start: 12/17/22 11:56 Freq: Status: Active Protocol: Document 12/21/22 11:53 [facility] (Rec: 12/21/22 13:39 [facility] [id number]) OP Gait Assessment Comments Gait Comments amb w/ lat lean over LLE PT-OP-J Posture/Palpation/Skin Start: 12/17/22 11:56 Freq: Status: Active Protocol: Document 04/29/23 08:50 [facility] (Rec: 04/29/23 15:17 [facility] [id number]) Posture Evaluation Blaine Postural Classification System Lumbar Protective Mechanism Left AP 0 Lumbar Protective Mechanism Right AP 1 Lumbar Protective Mechanism Left PA 1 Lumbar Protective Mechanism Right PA 0 PT-OP-K Range of Motion Start: 12/17/22 11:56 Freq: Status: Active Protocol: Document 12/21/22 11:53 [facility] (Rec: 12/21/22 13:39 [facility] [id number]) Lumbar Spine Range of Motion Lumbar Spine Active Percentage Flexion 50 Extension 60 Rotation Left 50 Rotation Right 50 Lateral Flexion Left 75 Lateral Flexion Right 75 Comments some discomfort w/ext PT-OP-M Strength Start: 12/17/22 11:56 Freq: Status: Active Protocol: Document 04/29/23 08:50 [facility] (Rec: 04/29/23 15:17 [facility] [id number]) Hip Strength Hip Manual Muscle Testing Right Flexion (L2) 5 Normal Extension (S1) 4+ Good+ Abduction 5 Normal Adduction 5 Normal External Rotation 5 Normal Internal Rotation 5 Normal Left Flexion (L2) 5 Normal Extension (S1) 4+ Good+ Abduction 4 Good Adduction 5 Normal External Rotation 5 Normal Internal Rotation 5 Normal Knee Strength Knee Manual Muscle Testing Right Flexion (S2) 5 Normal Extension (L3) 5 Normal Left Flexion (S2) 5 Normal Extension (L3) 5 Normal Ankle/Foot Strength Ankle and Foot Manual Muscle Testing Right Dorsiflexion (L4) 5 Normal Plantarflexion (S1) 5 Normal Left Dorsiflexion (L4) 5 Normal Plantarflexion (S1) 5 Normal Comments 20 heels raises B (jun) PT-OP-Q Treatments Start: 12/17/22 11:56 Freq: Status: Active Protocol: Document 04/29/23 08:50 [facility] (Rec: 04/29/23 15:17 [facility] [id number]) Neuro Re-Education Treatment Other Activities PNF Reps/Duration 20 min Comments 1. irradiation from L ant dep scap to L ant elevation pelvis progressed to sustained hold mass flex to each COI dissociation to mass flex COI 2. supin w/foam roll under buttocks w/L diagonal prolonged hold DL 3. supine L flex, add, ER LE pattern w/chin tuck and self resisted chop pattern Self-Care/Home Management Treatment Education Other Education 15 min: Edu to pt re: how steroid is anti inflamatory. Discussed w/pt how icign may help w/residual soreness. Edu on improtance for core as his LE strength has gotten better. Edu importances of gradually inc activity comfortablely in order to keep a good baseline and dec pain med use if not needing it. PT-OP-T Assessment and Plan Start: 12/17/22 11:56 Freq: Status: Active Protocol: Document 04/29/23 08:50 [facility] (Rec: 04/29/23 15:17 [facility] [id number]) Physical Therapy Assessment Goals strength Short Term Goal (STG) Pt will be indep w/HEP STG Duration achieved advancing as able Snf Goal (LTG) Pt will score at least 3/5 on LPM and 5/5 on all LE MMT to show improved stabiltiy in order to dec instances of pain . 03/01-improved 03/31-improved 04/29-core strength limited LTG Duration 06/24 activities Preprint Analyst Goal (LTG) Pt will be able to go for walks w/o inc pain (at least 3 miles) 03/01-no pain w/1.5 miles but hasn't tried more-occ dull ache L 03/31-2 miles but some fatigue or ache in L 04/29-pt had flare up when walking in [place] LTG Duration 06/24 NAN Impairment 14/50 02/11/23- Short Term Goal (STG) Pt iwll improve score to no greater than 9/50 to show imrpoved functional ability. 02/11/23- STG Duration Achieved 02/11/23 Preprint Analyst Goal (LTG) Pt will improve score to no greater than 3/50 to show imrpoved functional ability. 02/11/23- LTG Duration Achieved 02/11/23 Assessment Summary Assessment Pt returned after flare w/inc of pain after very large jump up of activity when on vacation (days of up to 9 miles of walking). He saw a provider in [place] and was given tramadol and a steroid. He is no longer using the steroid but still the pain med at night. His LLE strength looks good except weakness of L toe ext compared to R. He would beneift from skilled PT to work on returning to full activity w/o pain and imprvoing core stabiltiy Physical Therapy Plan Frequency and Duration Frequency of Treatment 1x/wk Duration of treatment (weeks) 8 Plan of Care Start Date 04/29/23 Plan of Care End Date 06/24/23 Therapeutic Interventions Therapeutic Interventions Balance Training,Gait Training ,Home Exercise Program,Joint Mobilizations,Manual Therapy, Neuromuscular Re-education, Orthotic/Prosthetic Management ,Patient/Caregiver Education, Self-Care/Home Management,Soft Tissue Mobilization,Taping, Therapeutic Activities, Therapeutic Exercises Modalities Cold Pack/Ice Massage,Electric Stimulation,Hot Packs, Ultrasound Next Visit Focus/Plan Next Note Type Treatment Note Next Visit Plan advance core stability
--- NOTE | 2023-04-29 18:30 | PT.OPPOC ---
Physical, Occupational & Speech Therapy At [facility] Current Diagnoses Dorsalgia, unspecified (04/29/23) Difficulty in walking, not elsewhere classified (04/29/23) Abnormal posture (04/29/23) Weakness (04/29/23) Visit Care Team Role Provider Type Arash Casiano MD Attending Provider Physician Family Provider Primary Care Provider Referring Provider Specialty: Family Practice Address: [address] [place] [address], [facility] Email: [email or web address] Plan Of Care PT-OP-T Assessment and Plan Start: 12/17/22 11:56 Freq: Status: Active Protocol: Document 04/29/23 08:50 [facility] (Rec: 04/29/23 15:17 [facility] [id number]) Physical Therapy Assessment Goals strength Short Term Goal (STG) Pt will be indep w/HEP STG Duration achieved advancing as able Viticulture Teacher Goal (LTG) Pt will score at least 3/5 on LPM and 5/5 on all LE MMT to show improved stabiltiy in order to dec instances of pain . 03/01-improved 03/31-improved 04/29-core strength limited LTG Duration 06/24 activities Skilled Nursing Goal (LTG) Pt will be able to go for walks w/o inc pain (at least 3 miles) 03/01-no pain w/1.5 miles but hasn't tried more-occ dull ache L 03/31-2 miles but some fatigue or ache in L 04/29-pt had flare up when walking in [place] LTG Duration 06/24 NAN Impairment 1450 02/11/23- Short Term Goal (STG) Pt iwll improve score to no greater than 9/50 to show imrpoved functional ability. 02/11/23- STG Duration Achieved 02/11/23 Viticulture Teacher Goal (LTG) Pt will improve score to no greater than 3/50 to show imrpoved functional ability. 02/11/23- LTG Duration Achieved 02/11/23 Assessment Summary Assessment Pt returned after flare w/inc of pain after very large jump up of activity when on vacation (days of up to 9 miles of walking). He saw a provider in [place] and was given tramadol and a steroid. He is no longer using the steroid but still the pain med at night. His LLE strength looks good except weakness of L toe ext compared to R. He would beneift from skilled PT to work on returning to full activity w/o pain and imprvoing core stabiltiy Physical Therapy Plan Frequency and Duration Frequency of Treatment 1x/wk Duration of treatment (weeks) 8 Plan of Care Start Date 04/29/23 Plan of Care End Date 06/24/23 Therapeutic Interventions Therapeutic Interventions Balance Training,Gait Training ,Home Exercise Program,Joint Mobilizations,Manual Therapy, Neuromuscular Re-education, Orthotic/Prosthetic Management ,Patient/Caregiver Education, Self-Care/Home Management,Soft Tissue Mobilization,Taping, Therapeutic Activities, Therapeutic Exercises Modalities Cold Pack/Ice Massage,Electric Stimulation,Hot Packs, Ultrasound Next Visit Focus/Plan Next Note Type Treatment Note Next Visit Plan advance core stability Plan of Care Dates Plan of Care Start Date 04/29/23 Plan of Care End Date 06/24/23 Electronically Signed by: Rose Mary Olmos, PT 04/29/23 1069 If you are in agreement with this Plan of Care, please return a signed and dated copy. I have reviewed this Plan of Care and certify that the skilled therapy services above are required to meet the patient?s needs. Physician Signature Date Printed Name and Credentials Clinical Instructor Signature Printed Name and Credentials
--- NOTE | 2023-05-12 12:08 | PT.OTN ---
Current Diagnoses Dorsalgia, unspecified (05/12/23) Difficulty in walking, not elsewhere classified (05/12/23) Abnormal posture (05/12/23) Weakness (05/12/23) Physical Therapy Treatment Note PT-OP-A Visit Information Start: 12/17/22 11:56 Freq: Status: Active Protocol: Document 05/12/23 10:33 [facility] (Rec: 05/12/23 12:08 [facility] [id number]) Out-Patient Physical Therapy Visit Information Visit Information Visit Type Treatment Note Visit Note 08/28 Student PT Abigail Shaffer participated in treatment session w/PT direct supervision and direction Visit Start Time 09:05 Visit Stop Time 09:48 Total Visit Minutes 43 Visit Number 20 Number of CERTIFIED DRIVER EXAMINER Visits 0 PT-OP-B Current Condition Start: 12/17/22 11:56 Freq: Status: Active Protocol: Document 12/21/22 11:53 [facility] (Rec: 12/21/22 13:39 [facility] [id number]) Current Condition History of Current Condition Onset Date 2 months ago Current Complaints LBP and L leg pain History of Current Condition Pt reports he has not had any back issues or concerns ever, but around his 72th bday. He doesn't have recolection of anything that caused it. tylenol didn't help and went to ER for tordal and mm relaxors and afew days later, it didn't better. Xray the 2nd time in ER and had oxycodone and neurotin and gabapentin and baclofen and that helped. Initally the pain was so bad, he was crawling to the bathroom and could barely get up. Pt saw Dr. Ahumada and he got an injection and he has been signifcantly better after this whre it is onlyl ow level pain. He saw a specialist in [place]. Pain started in LB and pretty soon after it was burning and painful in post thigh & lat bush and into dorsum of foot. Pt is hoping to go to [place] in the fall w/his . In the last couple weeks, he has seen Dr. Casiano for acupuncture. He has been off the oxy for a month. He has been off all meds for about 1- 2 weeks. he feels tired a little. 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 Pt is using a lumbar cusion behind his back . Pt reports if he stands any period of time, he starts to feel the pain as it just starts to ache a little. Pt reports his typical lifestyle is pretty sedentary. He has not riden his bike since this either. Prior Treatments and Tests Xray: IMPRESSION: Grade 1 isthmic spondylolisthesis at L5-S1, stable MRI lumbar: IMPRESSION: 1. At L5-S1, there are bilateral L5 pars defects, mild anterolisthesis of L5 on S1, and moderate to severe left foraminal narrowing, with left foraminal L5 nerve root impingement. 2. Mild multilevel facet arthropathy. Injection on 11/12/22 Treatment Goals Patient/Caregiver Goals be able to walk in [place] in afew months PT-OP-C Subjective Start: 12/17/22 11:56 Freq: Status: Active Protocol: Document 05/12/23 10:33 [facility] (Rec: 05/12/23 12:08 [facility] [id number]) OP-PT Subjective Patient Comments Patient Comments Pt reports pain has inc a little and is noticing it mostly in HS and down calf to ankle. Notes standing long inc and just by the end of the day. he has not palomo doing exercises as he was worried w/ pain PT-OP-D Balance Start: 12/17/22 11:56 Freq: Status: Active Protocol: Document 12/21/22 11:53 [facility] (Rec: 12/21/22 13:39 [facility] [id number]) Balance Tests Single Limb Standing Single Limb- Right 6 sec a lot of deviation Single Limb- Left 4 sec a lot of deviation PT-OP-G Mobility & Gait Start: 12/17/22 11:56 Freq: Status: Active Protocol: Document 12/21/22 11:53 [facility] (Rec: 12/21/22 13:39 [facility] [id number]) OP Gait Assessment Comments Gait Comments amb w/ lat lean over LLE PT-OP-J Posture/Palpation/Skin Start: 12/17/22 11:56 Freq: Status: Active Protocol: Document 04/29/23 08:50 [facility] (Rec: 04/29/23 15:17 [facility] [id number]) Posture Evaluation Blaine Postural Classification System Lumbar Protective Mechanism Left AP 0 Lumbar Protective Mechanism Right AP 1 Lumbar Protective Mechanism Left PA 1 Lumbar Protective Mechanism Right PA 0 PT-OP-K Range of Motion Start: 12/17/22 11:56 Freq: Status: Active Protocol: Document 12/21/22 11:53 [facility] (Rec: 12/21/22 13:39 [facility] [id number]) Lumbar Spine Range of Motion Lumbar Spine Active Percentage Flexion 50 Extension 60 Rotation Left 50 Rotation Right 50 Lateral Flexion Left 75 Lateral Flexion Right 75 Comments some discomfort w/ext PT-OP-M Strength Start: 12/17/22 11:56 Freq: Status: Active Protocol: Document 04/29/23 08:50 [facility] (Rec: 04/29/23 15:17 [facility] [id number]) Hip Strength Hip Manual Muscle Testing Right Flexion (L2) 5 Normal Extension (S1) 4+ Good+ Abduction 5 Normal Adduction 5 Normal External Rotation 5 Normal Internal Rotation 5 Normal Left Flexion (L2) 5 Normal Extension (S1) 4+ Good+ Abduction 4 Good Adduction 5 Normal External Rotation 5 Normal Internal Rotation 5 Normal Knee Strength Knee Manual Muscle Testing Right Flexion (S2) 5 Normal Extension (L3) 5 Normal Left Flexion (S2) 5 Normal Extension (L3) 5 Normal Ankle/Foot Strength Ankle and Foot Manual Muscle Testing Right Dorsiflexion (L4) 5 Normal Plantarflexion (S1) 5 Normal Left Dorsiflexion (L4) 5 Normal Plantarflexion (S1) 5 Normal Comments 20 heels raises B (jun) PT-OP-Q Treatments Start: 12/17/22 11:56 Freq: Status: Active Protocol: Document 05/12/23 10:33 [facility] (Rec: 05/12/23 12:08 [facility] [id number]) Therapeutic Exercises Supine Exercises n glide Side left Reps/Minutes 10 stretch Supine Exercise Name piriformis Side left Reps/Minutes 2x30s isometric Supine Exercise Name SL flex isometric Side bilateral Reps/Minutes 30 sec Comments cues for no breath holding, relax neck Standing Exercises stretch Standing Exercise Name calf Side bilateral Reps/Minutes 30 sec PF Standing Exercise Name on step Side bilateral Reps/Minutes 15 Therapeutic Activity Therapeutic Activity log roll Reps/Minutes 8 min Comments working on supine<>sit w/max cues to slow down to dec back pressure Manual Therapy Treatment Soft Tissue Mobilization thigh Body Location L HS, add and distal glute Mobilization Type Rolling,Strumming Intensity/Depth Moderate Body Position Hooklying Comments AAROM HS stretch, and flexion PT-OP-T Assessment and Plan Start: 12/17/22 11:56 Freq: Status: Active Protocol: Document 05/12/23 10:33 [facility] (Rec: 05/12/23 12:08 [facility] [id number]) Physical Therapy Assessment Goals strength Short Term Goal (STG) Pt will be indep w/HEP STG Duration achieved advancing as able Customer Solutions Teammate Goal (LTG) Pt will score at least 3/5 on LPM and 5/5 on all LE MMT to show improved stabiltiy in order to dec instances of pain . 03/01-improved 03/31-improved 04/29-core strength limited LTG Duration 06/24 activities Jail Goal (LTG) Pt will be able to go for walks w/o inc pain (at least 3 miles) 03/01-no pain w/1.5 miles but hasn't tried more-occ dull ache L 03/31-2 miles but some fatigue or ache in L 04/29-pt had flare up when walking in [place] LTG Duration 06/24 NAN Impairment 14/50 02/11/23- Short Term Goal (STG) Pt iwll improve score to no greater than 9/50 to show imrpoved functional ability. 02/11/23- STG Duration Achieved 02/11/23 Customer Solutions Teammate Goal (LTG) Pt will improve score to no greater than 3/50 to show imrpoved functional ability. 02/11/23- LTG Duration Achieved 02/11/23 Assessment Summary Assessment Pt started w/positive SLR on L w/calf pain about 30 deg. After manual, he had equal SLR to R to L w/o calf pain, just HS pull. Pt requierd a lot of cues for comfortable range w/ stretches and exercises along w/appropriate log roll technique. Physical Therapy Plan Frequency and Duration Frequency of Treatment 1x/wk Duration of treatment (weeks) 8 Plan of Care Start Date 04/29/23 Plan of Care End Date 06/24/23 Next Visit Focus/Plan Next Note Type Treatment Note Next Visit Plan advance core stability
--- NOTE | 2023-05-19 17:43 | PT.OTN ---
Addendum entered and electronically signed by Rose Mary Olmos PT 05/19/23 17:50: PT direct supervision and direction to PT student. Original Note: Current Diagnoses Dorsalgia, unspecified (05/19/23) Difficulty in walking, not elsewhere classified (05/19/23) Abnormal posture (05/19/23) Weakness (05/19/23) Physical Therapy Treatment Note PT-OP-A Visit Information Start: 12/17/22 11:56 Freq: Status: Active Protocol: Document 05/19/23 10:50 BS (Rec: 05/19/23 12:46 BS [id number]) Out-Patient Physical Therapy Visit Information Visit Information Visit Type Treatment Note Visit Note 09/25 Visit Start Time 10:49 Visit Stop Time 11:34 Total Visit Minutes 45 Visit Number 21 Number of DIABETES TERRITORY MANAGER Visits 0 PT-OP-B Current Condition Start: 12/17/22 11:56 Freq: Status: Active Protocol: Document 12/21/22 11:53 [facility] (Rec: 12/21/22 13:39 [facility] [id number]) Current Condition History of Current Condition Onset Date 2 months ago Current Complaints LBP and L leg pain History of Current Condition Pt reports he has not had any back issues or concerns ever, but around his 72th bday. He doesn't have recolection of anything that caused it. tylenol didn't help and went to ER for tordal and mm relaxors and afew days later, it didn't better. Xray the 2nd time in ER and had oxycodone and neurotin and gabapentin and baclofen and that helped. Initally the pain was so bad, he was crawling to the bathroom and could barely get up. Pt saw Dr. Ahumaad and he got an injection and he has been signifcantly better after this whre it is onlyl ow level pain. He saw a specialist in [place]. Pain started in LB and pretty soon after it was burning and painful in post thigh & lat bush and into dorsum of foot. Pt is hoping to go to [place] in the fall w/his . In the last couple weeks, he has seen Dr. Casiano for acupuncture. He has been off the oxy for a month. He has been off all meds for about 1- 2 weeks. he feels tired a little. 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 Pt is using a lumbar cusion behind his back . Pt reports if he stands any period of time, he starts to feel the pain as it just starts to ache a little. Pt reports his typical lifestyle is pretty sedentary. He has not riden his bike since this either. Prior Treatments and Tests Xray: IMPRESSION: Grade 1 isthmic spondylolisthesis at L5-S1, stable MRI lumbar: IMPRESSION: 1. At L5-S1, there are bilateral L5 pars defects, mild anterolisthesis of L5 on S1, and moderate to severe left foraminal narrowing, with left foraminal L5 nerve root impingement. 2. Mild multilevel facet arthropathy. Injection on 11/12/22 Treatment Goals Patient/Caregiver Goals be able to walk in [place] in afew months PT-OP-C Subjective Start: 12/17/22 11:56 Freq: Status: Active Protocol: Document 05/19/23 10:50 BS (Rec: 05/19/23 12:46 BS [id number]) OP-PT Subjective Patient Comments Patient Comments Pt got injection scheduled for 06/09, but his pain seems to be less aggrevated. He has not been completing HEP except calf stretch to let things settle down. PT-OP-D Balance Start: 12/17/22 11:56 Freq: Status: Active Protocol: Document 12/21/22 11:53 [facility] (Rec: 12/21/22 13:39 [facility] [id number]) Balance Tests Single Limb Standing Single Limb- Right 6 sec a lot of deviation Single Limb- Left 4 sec a lot of deviation PT-OP-G Mobility & Gait Start: 12/17/22 11:56 Freq: Status: Active Protocol: Document 12/21/22 11:53 [facility] (Rec: 12/21/22 13:39 [facility] [id number]) OP Gait Assessment Comments Gait Comments amb w/ lat lean over LLE PT-OP-J Posture/Palpation/Skin Start: 12/17/22 11:56 Freq: Status: Active Protocol: Document 04/29/23 08:50 LR (Rec: 04/29/23 15:17 [facility] [id number]) Posture Evaluation [place]aine Postural Classification System Lumbar Protective Mechanism Left AP 0 Lumbar Protective Mechanism Right AP 1 Lumbar Protective Mechanism Left PA 1 Lumbar Protective Mechanism Right PA 0 PT-OP-K Range of Motion Start: 12/17/22 11:56 Freq: Status: Active Protocol: Document 12/21/22 11:53 LR (Rec: 12/21/22 13:39 [facility] [id number]) Lumbar Spine Range of Motion Lumbar Spine Active Percentage Flexion 50 Extension 60 Rotation Left 50 Rotation Right 50 Lateral Flexion Left 75 Lateral Flexion Right 75 Comments some discomfort w/ext PT-OP-M Strength Start: 12/17/22 11:56 Freq: Status: Active Protocol: Document 04/29/23 08:50 [facility] (Rec: 04/29/23 15:17 [facility] [id number]) Hip Strength Hip Manual Muscle Testing Right Flexion (L2) 5 Normal Extension (S1) 4+ Good+ Abduction 5 Normal Adduction 5 Normal External Rotation 5 Normal Internal Rotation 5 Normal Left Flexion (L2) 5 Normal Extension (S1) 4+ Good+ Abduction 4 Good Adduction 5 Normal External Rotation 5 Normal Internal Rotation 5 Normal Knee Strength Knee Manual Muscle Testing Right Flexion (S2) 5 Normal Extension (L3) 5 Normal Left Flexion (S2) 5 Normal Extension (L3) 5 Normal Ankle/Foot Strength Ankle and Foot Manual Muscle Testing Right Dorsiflexion (L4) 5 Normal Plantarflexion (S1) 5 Normal Left Dorsiflexion (L4) 5 Normal Plantarflexion (S1) 5 Normal Comments 20 heels raises B (slightly jun) PT-OP-Q Treatments Start: 12/17/22 11:56 Freq: Status: Active Protocol: Document 05/19/23 10:50 BS (Rec: 05/19/23 12:46 BS [id number]) Therapeutic Exercises Supine Exercises n glide Side bilateral Reps/Minutes 10ea stretch Supine Exercise Name piriformis Side left Reps/Minutes 1x45s ea isometric Supine Exercise Name SL flex isometric Side bilateral Reps/Minutes 2xtrial ea Comments max cues for positioning, hand placement, and pressure into mat with opposi Standing Exercises stretch Standing Exercise Name calf Side bilateral Reps/Minutes 1 min Therapeutic Activity Therapeutic Activity log roll Reps/Minutes 5 min Comments required max a for cueing at start, indep by last rep Manual Therapy Treatment Soft Tissue Mobilization thigh Body Location B HR & Add Mobilization Type Rolling,Strumming Intensity/Depth Moderate Body Position Hooklying Comments AAROM HS stretch Self-Care/Home Management Treatment Education Other Education 8 min: education on pool workouts and resisted walking, importance of continuing HEP outside of treatments, and improtance of communicating with dr in following weeks about injection as patient expressed in potentially not getting it if symptoms continue to improve. PT-OP-T Assessment and Plan Start: 12/17/22 11:56 Freq: Status: Active Protocol: Document 05/19/23 10:50 BS (Rec: 05/19/23 12:46 BS [id number]) Physical Therapy Assessment Goals strength Short Term Goal (STG) Pt will be indep w/HEP STG Duration achieved advancing as able Canvassing Manager Goal (LTG) Pt will score at least 3/5 on LPM and 5/5 on all LE MMT to show improved stabiltiy in order to dec instances of pain . 03/01-improved 03/31-improved 04/29-core strength limited LTG Duration 06/24 activities [facility] Goal (LTG) Pt will be able to go for walks w/o inc pain (at least 3 miles) 03/01-no pain w/1.5 miles but hasn't tried more-occ dull ache L 03/31-2 miles but some fatigue or ache in L 04/29-pt had flare up when walking in [place] LTG Duration 06/24 NAN Impairment 14/50 02/11/23- Short Term Goal (STG) Pt iwll improve score to no greater than 9/50 to show imrpoved functional ability. 02/11/23- STG Duration Achieved 02/11/23 Canvassing Manager Goal (LTG) Pt will improve score to no greater than 3/50 to show imrpoved functional ability. 02/11/23- LTG Duration Achieved 02/11/23 Assessment Summary Assessment Pt was unable to demonstrate log roll at start without max cueing. After multiple trials pt was about to complete with proper mechanics independently . Pt encourage to continue to practice and use at home to limit stress on back. Pt had positive SLR B w/calf pain ~40 deg. Pt had not completed nerve glide HEP since last appointment and performed B with Mod cueing. Pt encourage to also continue this exercise outside of PT in order to continue to dec symptoms and inc strength interventions in future sessions. At end of session pt had difficulty activating and continuing to engage core in SL isometric hold. Physical Therapy Plan Frequency and Duration Frequency of Treatment 1x/wk Duration of treatment (weeks) 8 Plan of Care Start Date 04/29/23 Plan of Care End Date 06/24/23 Next Visit Focus/Plan Next Note Type Treatment Note Next Visit Plan Continue to work on core activiation and enagegment. Progress LE strength training: review bridges& hip hik, intro lat step down, lat lunge , banded side steps
--- NOTE | 2023-05-27 16:36 | PT.OTN ---
Addendum entered and electronically signed by Rose Mary Olmos PT 05/27/23 16:50: PT direct supervision and direction to PT student. Original Note: Current Diagnoses Dorsalgia, unspecified (05/27/23) Difficulty in walking, not elsewhere classified (05/27/23) Abnormal posture (05/27/23) Weakness (05/27/23) Physical Therapy Treatment Note PT-OP-A Visit Information Start: 12/17/22 11:56 Freq: Status: Active Protocol: Document 05/27/23 09:04 BS (Rec: 05/27/23 10:11 BS [id number]) Out-Patient Physical Therapy Visit Information Visit Information Visit Type Treatment Note Visit Note 10/26 Visit Start Time 09:05 Visit Stop Time 09:47 Total Visit Minutes 42 Visit Number 22 Number of DRAFTER CHIEF DESIGN Visits 0 PT-OP-B Current Condition Start: 12/17/22 11:56 Freq: Status: Active Protocol: Document 12/21/22 11:53 [facility] (Rec: 12/21/22 13:39 [facility] [id number]) Current Condition History of Current Condition Onset Date 2 months ago Current Complaints LBP and L leg pain History of Current Condition Pt reports he has not had any back issues or concerns ever, but around his 72th bday. He doesn't have recolection of anything that caused it. tylenol didn't help and went to ER for tordal and mm relaxors and afew days later, it didn't better. Xray the 2nd time in ER and had oxycodone and neurotin and gabapentin and baclofen and that helped. Initally the pain was so bad, he was crawling to the bathroom and could barely get up. Pt saw Dr. Ahumada and he got an injection and he has been signifcantly better after this whre it is onlyl ow level pain. He saw a specialist in [place]. Pain started in LB and pretty soon after it was burning and painful in post thigh & lat bush and into dorsum of foot. Pt is hoping to go to [place] in the fall w/his . In the last couple weeks, he has seen Dr. Casiano for acupuncture. He has been off the oxy for a month. He has been off all meds for about 1- 2 weeks. he feels tired a little. 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 Pt is using a lumbar cusion behind his back . Pt reports if he stands any period of time, he starts to feel the pain as it just starts to ache a little. Pt reports his typical lifestyle is pretty sedentary. He has not riden his bike since this either. Prior Treatments and Tests Xray: IMPRESSION: Grade 1 isthmic spondylolisthesis at L5-S1, stable MRI lumbar: IMPRESSION: 1. At L5-S1, there are bilateral L5 pars defects, mild anterolisthesis of L5 on S1, and moderate to severe left foraminal narrowing, with left foraminal L5 nerve root impingement. 2. Mild multilevel facet arthropathy. Injection on 11/12/22 Treatment Goals Patient/Caregiver Goals be able to walk in [place] in afew months PT-OP-C Subjective Start: 12/17/22 11:56 Freq: Status: Active Protocol: Document 05/27/23 09:04 BS (Rec: 05/27/23 10:11 BS [id number]) OP-PT Subjective Patient Comments Patient Comments Pt has been doing well lately and has not had any pain. Hasnot tried walking yet and has been doing some HEP. Pushed out his injection to a later date PT-OP-D Balance Start: 12/17/22 11:56 Freq: Status: Active Protocol: Document 12/21/22 11:53 [facility] (Rec: 12/21/22 13:39 [facility] [id number]) Balance Tests Single Limb Standing Single Limb- Right 6 sec a lot of deviation Single Limb- Left 4 sec a lot of deviation PT-OP-G Mobility & Gait Start: 12/17/22 11:56 Freq: Status: Active Protocol: Document 12/21/22 11:53 [facility] (Rec: 12/21/22 13:39 [facility] [id number]) OP Gait Assessment Comments Gait Comments amb w/ lat lean over LLE PT-OP-J Posture/Palpation/Skin Start: 12/17/22 11:56 Freq: Status: Active Protocol: Document 04/29/23 08:50 LR (Rec: 04/29/23 15:17 [facility] [id number]) Posture Evaluation [place] Postural Classification System Lumbar Protective Mechanism Left AP 0 Lumbar Protective Mechanism Right AP 1 Lumbar Protective Mechanism Left PA 1 Lumbar Protective Mechanism Right PA 0 PT-OP-K Range of Motion Start: 12/17/22 11:56 Freq: Status: Active Protocol: Document 12/21/22 11:53 LR (Rec: 12/21/22 13:39 [facility] [id number]) Lumbar Spine Range of Motion Lumbar Spine Active Percentage Flexion 50 Extension 60 Rotation Left 50 Rotation Right 50 Lateral Flexion Left 75 Lateral Flexion Right 75 Comments some discomfort w/ext PT-OP-M Strength Start: 12/17/22 11:56 Freq: Status: Active Protocol: Document 04/29/23 08:50 [facility] (Rec: 04/29/23 15:17 [facility] [id number]) Hip Strength Hip Manual Muscle Testing Right Flexion (L2) 5 Normal Extension (S1) 4+ Good+ Abduction 5 Normal Adduction 5 Normal External Rotation 5 Normal Internal Rotation 5 Normal Left Flexion (L2) 5 Normal Extension (S1) 4+ Good+ Abduction 4 Good Adduction 5 Normal External Rotation 5 Normal Internal Rotation 5 Normal Knee Strength Knee Manual Muscle Testing Right Flexion (S2) 5 Normal Extension (L3) 5 Normal Left Flexion (S2) 5 Normal Extension (L3) 5 Normal Ankle/Foot Strength Ankle and Foot Manual Muscle Testing Right Dorsiflexion (L4) 5 Normal Plantarflexion (S1) 5 Normal Left Dorsiflexion (L4) 5 Normal Plantarflexion (S1) 5 Normal Comments 20 heels raises B (slightly jun) PT-OP-Q Treatments Start: 12/17/22 11:56 Freq: Status: Active Protocol: Document 05/27/23 09:04 BS (Rec: 05/27/23 10:11 BS [id number]) Therapeutic Exercises Supine Exercises n glide Side bilateral Reps/Minutes 8ea isometric Supine Exercise Name 1. SL flex iso 2. 4-way Core series Side bilateral Reps/Minutes x30s ea (6 in total) Comments mod cues for hand positioning bridge Supine Exercise Name Supine DL bridges Reps/Minutes x10 Comments cues for slow eccentric and neutral back Therapeutic Activity Therapeutic Activity log roll Reps/Minutes x2 Comments Still requires max cueing for sequencing as tends to lead back first instead of propping onto elbow Neuro Re-Education Treatment Other Activities PNF Reps/Duration 15 min Comments L ant elevation irradiation from LE to pelvis progressed to sustained hold then advanced to dissociation of LE from pelvic girdle, multiple reps PT-OP-T Assessment and Plan Start: 12/17/22 11:56 Freq: Status: Active Protocol: Document 05/27/23 09:04 BS (Rec: 05/27/23 10:11 BS [id number]) Physical Therapy Assessment Goals strength Short Term Goal (STG) Pt will be indep w/HEP STG Duration achieved advancing as able Senior Care Goal (LTG) Pt will score at least 3/5 on LPM and 5/5 on all LE MMT to show improved stabiltiy in order to dec instances of pain . 03/01-improved 03/31-improved 04/29-core strength limited LTG Duration 06/24 activities Senior Care Goal (LTG) Pt will be able to go for walks w/o inc pain (at least 3 miles) 03/01-no pain w/1.5 miles but hasn't tried more-occ dull ache L 03/31-2 miles but some fatigue or ache in L 04/29-pt had flare up when walking in [place] LTG Duration 06/24 NAN Impairment 14/50 02/11/23- 2 Short Term Goal (STG) Pt iwll improve score to no greater than 9/50 to show imrpoved functional ability. 02/11/23- STG Duration Achieved 02/11/23 Casting Associate Goal (LTG) Pt will improve score to no greater than 3/50 to show imrpoved functional ability. 02/11/23- LTG Duration Achieved 02/11/23 Assessment Summary Assessment Pt did better with core activation today during SL flex isometrics and was able to progress to DL core series with Mod cues for hand placement and control resistance. Pt ended with pelvic PNF and demonstrated better activation of core at end of session. Physical Therapy Plan Frequency and Duration Frequency of Treatment 1x/wk Duration of treatment (weeks) 8 Plan of Care Start Date 04/29/23 Plan of Care End Date 06/24/23 Next Visit Focus/Plan Next Note Type Treatment Note Next Visit Plan Continue to work on core activiation and enagegment. Progress LE strength training: review bridges& hip hik, intro lat step down, lat lunge , banded side steps
--- NOTE | 2023-06-02 17:24 | PT.OTN ---
Current Diagnoses Dorsalgia, unspecified (06/02/23) Difficulty in walking, not elsewhere classified (06/02/23) Abnormal posture (06/02/23) Weakness (06/02/23) Physical Therapy Treatment Note PT-OP-A Visit Information Start: 12/17/22 11:56 Freq: Status: Active Protocol: Document 06/02/23 16:10 [facility] (Rec: 06/02/23 17:24 [facility] [id number]) Out-Patient Physical Therapy Visit Information Visit Information Visit Type Treatment Note Visit Note 11/25 Visit Start Time 16:04 Visit Stop Time 16:46 Total Visit Minutes 42 Visit Number 23 Number of BEAMING MACHINE OPERATOR Visits 0 PT-OP-B Current Condition Start: 12/17/22 11:56 Freq: Status: Active Protocol: Document 12/21/22 11:53 [facility] (Rec: 12/21/22 13:39 [facility] [id number]) Current Condition History of Current Condition Onset Date 2 months ago Current Complaints LBP and L leg pain History of Current Condition Pt reports he has not had any back issues or concerns ever, but around his 72th bday. He doesn't have recolection of anything that caused it. tylenol didn't help and went to ER for tordal and mm relaxors and afew days later, it didn't better. Xray the 2nd time in ER and had oxycodone and neurotin and gabapentin and baclofen and that helped. Initally the pain was so bad, he was crawling to the bathroom and could barely get up. Pt saw Dr. Ahumada and he got an injection and he has been signifcantly better after this whre it is onlyl ow level pain. He saw a specialist in [place]. Pain started in [place] and pretty soon after it was burning and painful in post thigh & lat bush and into dorsum of foot. Pt is hoping to go to [place] in the fall w/his . In the last couple weeks, he has seen Dr. Casiano for acupuncture. He has been off the oxy for a month. He has been off all meds for about 1- 2 weeks. he feels tired a little. 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 Pt is using a lumbar cusion behind his back . Pt reports if he stands any period of time, he starts to feel the pain as it just starts to ache a little. Pt reports his typical lifestyle is pretty sedentary. He has not riden his bike since this either. Prior Treatments and Tests Xray: IMPRESSION: Grade 1 isthmic spondylolisthesis at L5-S1, stable MRI lumbar: IMPRESSION: 1. At L5-S1, there are bilateral L5 pars defects, mild anterolisthesis of L5 on S1, and moderate to severe left foraminal narrowing, with left foraminal L5 nerve root impingement. 2. Mild multilevel facet arthropathy. Injection on 11/12/22 Treatment Goals Patient/Caregiver Goals be able to walk in [place] in afew months PT-OP-C Subjective Start: 12/17/22 11:56 Freq: Status: Active Protocol: Document 06/02/23 16:10 [facility] (Rec: 06/02/23 17:24 [facility] [id number]) OP-PT Subjective Patient Comments Patient Comments Pt reports no pain down leg. notes he has had occ twinges w /bending and twisting combo motions. PT-OP-D Balance Start: 12/17/22 11:56 Freq: Status: Active Protocol: Document 12/21/22 11:53 [facility] (Rec: 12/21/22 13:39 [id number] Balance Tests Single Limb Standing Single Limb- Right 6 sec a lot of deviation Single Limb- Left 4 sec a lot of deviation PT-OP-G Mobility & Gait Start: 12/17/22 11:56 Freq: Status: Active Protocol: Document 12/21/22 11:53 [facility] (Rec: 12/21/22 13:39 [facility] [id number]) OP Gait Assessment Comments Gait Comments amb w/ lat lean over LLE PT-OP-J Posture/Palpation/Skin Start: 12/17/22 11:56 Freq: Status: Active Protocol: Document 04/29/23 08:50 [facility] (Rec: 04/29/23 15:17 [facility] [id number]) Posture Evaluation [place] Postural Classification System Lumbar Protective Mechanism Left AP 0 Lumbar Protective Mechanism Right AP 1 Lumbar Protective Mechanism Left PA 1 Lumbar Protective Mechanism Right PA 0 PT-OP-K Range of Motion Start: 12/17/22 11:56 Freq: Status: Active Protocol: Document 12/21/22 11:53 [facility] (Rec: 12/21/22 13:39 [facility] [id number]) Lumbar Spine Range of Motion Lumbar Spine Active Percentage Flexion 50 Extension 60 Rotation Left 50 Rotation Right 50 Lateral Flexion Left 75 Lateral Flexion Right 75 Comments some discomfort w/ext PT-OP-M Strength Start: 12/17/22 11:56 Freq: Status: Active Protocol: Document 04/29/23 08:50 [facility] (Rec: 04/29/23 15:17 [facility] [id number]) Hip Strength Hip Manual Muscle Testing Right Flexion (L2) 5 Normal Extension (S1) 4+ Good+ Abduction 5 Normal Adduction 5 Normal External Rotation 5 Normal Internal Rotation 5 Normal Left Flexion (L2) 5 Normal Extension (S1) 4+ Good+ Abduction 4 Good Adduction 5 Normal External Rotation 5 Normal Internal Rotation 5 Normal Knee Strength Knee Manual Muscle Testing Right Flexion (S2) 5 Normal Extension (L3) 5 Normal Left Flexion (S2) 5 Normal Extension (L3) 5 Normal Ankle/Foot Strength Ankle and Foot Manual Muscle Testing Right Dorsiflexion (L4) 5 Normal Plantarflexion (S1) 5 Normal Left Dorsiflexion (L4) 5 Normal Plantarflexion (S1) 5 Normal Comments 20 heels raises B (jun) PT-OP-Q Treatments Start: 12/17/22 11:56 Freq: Status: Active Protocol: Document 06/02/23 16:10 [facility] (Rec: 06/02/23 17:24 [facility] [id number]) Therapeutic Exercises Supine Exercises n glide Side bilateral Reps/Minutes 8ea isometric Supine Exercise Name 4-way Core series Side bilateral Reps/Minutes x30s ea Comments mod cues for hand positioning bridge Side bilateral Reps/Minutes 10 sec x5 Standing Exercises paloff press Side bilateral Equipment Used orange band Reps/Minutes 15 side steps Side bilateral Equipment Used 1x w/orange then 2x w/green Reps/Minutes 3x20ft step down Standing Exercise Name lat Side bilateral Equipment Used 6 in w/rail Reps/Minutes 15 Comments cues buttocks back stretch Standing Exercise Name calf Side bilateral Reps/Minutes 90 sec hip hikes Side bilateral Reps/Minutes 15 Therapeutic Activity Therapeutic Activity log roll Reps/Minutes 8 min Comments mod cues to work on log roll w /mult reps up and down on lg table PT-OP-T Assessment and Plan Start: 12/17/22 11:56 Freq: Status: Active Protocol: Document 06/02/23 16:10 [facility] (Rec: 06/02/23 17:24 [facility] [id number]) Physical Therapy Assessment Goals strength Short Term Goal (STG) Pt will be indep w/HEP STG Duration achieved advancing as able Communication Engineer Goal (LTG) Pt will score at least 3/5 on LPM and 5/5 on all LE MMT to show improved stabiltiy in order to dec instances of pain . 03/01-improved 03/31-improved 04/29-core strength limited LTG Duration 06/24 activities Communication Engineer Goal (LTG) Pt will be able to go for walks w/o inc pain (at least 3 miles) 03/01-no pain w/1.5 miles but hasn't tried more-occ dull ache L 03/31-2 miles but some fatigue or ache in L 04/29-pt had flare up when walking in [place] LTG Duration 06/24 NAN Impairment 14/50 02/11/23- Short Term Goal (STG) Pt iwll improve score to no greater than 9/50 to show imrpoved functional ability. 02/11/23- STG Duration Achieved 02/11/23 Shelter Goal (LTG) Pt will improve score to no greater than 3/50 to show imrpoved functional ability. 02/11/23- LTG Duration Achieved 02/11/23 Assessment Summary Assessment Pt requires a lot of cues for posture and form during exercsies along w/cues for slow controlled movement. He did better w/log roll today. Physical Therapy Plan Frequency and Duration Frequency of Treatment 1x/wk Duration of treatment (weeks) 8 Plan of Care Start Date 04/29/23 Plan of Care End Date 06/24/23 Next Visit Focus/Plan Next Note Type Treatment Note Next Visit Plan work on hip hinge and squat training for bending to schedule supervisor, cont to work on strength for gait; work on balance
--- NOTE | 2023-06-08 14:51 | PT.OTN ---
Addendum entered and electronically signed by Rose Mary Olmos PT 06/09/23 11:00: PT direct supervision and direction to PT student. Original Note: Current Diagnoses Dorsalgia, unspecified (06/08/23) Difficulty in walking, not elsewhere classified (06/08/23) Abnormal posture (06/08/23) Weakness (06/08/23) Physical Therapy Treatment Note PT-OP-A Visit Information Start: 12/17/22 11:56 Freq: Status: Active Protocol: Document 06/08/23 09:10 [facility] (Rec: 06/08/23 09:48 [facility] [id number]) Out-Patient Physical Therapy Visit Information Visit Information Visit Type Treatment Note Visit Note 12/26 Visit Start Time 09:09 Visit Stop Time 09:47 Total Visit Minutes 38 Visit Number 24 Number of ICE CREAM SHOP ASSOCIATE Visits 0 PT-OP-B Current Condition Start: 12/17/22 11:56 Freq: Status: Active Protocol: Document 12/21/22 11:53 [facility] (Rec: 12/21/22 13:39 [facility] [id number]) Current Condition History of Current Condition Onset Date 2 months ago Current Complaints LBP and L leg pain History of Current Condition Pt reports he has not had any back issues or concerns ever, but around his 72th bday. He doesn't have recolection of anything that caused it. tylenol didn't help and went to ER for tordal and mm relaxors and afew days later, it didn't better. Xray the 2nd time in ER and had oxycodone and neurotin and gabapentin and baclofen and that helped. Initally the pain was so bad, he was crawling to the bathroom and could barely get up. Pt saw Dr. Ahumada and he got an injection and he has been signifcantly better after this whre it is onlyl ow level pain. He saw a specialist in [place]. Pain started in [place] and pretty soon after it was burning and painful in post thigh & lat bush and into dorsum of foot. Pt is hoping to go to [place] in the fall w/his . In the last couple weeks, he has seen Dr. Casiano for acupuncture. He has been off the oxy for a month. He has been off all meds for about 1- 2 weeks. he feels tired a little. 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 Pt is using a lumbar cusion behind his back . Pt reports if he stands any period of time, he starts to feel the pain as it just starts to ache a little. Pt reports his typical lifestyle is pretty sedentary. He has not riden his bike since this either. Prior Treatments and Tests Xray: IMPRESSION: Grade 1 isthmic spondylolisthesis at L5-S1, stable MRI lumbar: IMPRESSION: 1. At L5-S1, there are bilateral L5 pars defects, mild anterolisthesis of L5 on S1, and moderate to severe left foraminal narrowing, with left foraminal L5 nerve root impingement. 2. Mild multilevel facet arthropathy. Injection on 11/12/22 Treatment Goals Patient/Caregiver Goals be able to walk in [place] in afew months PT-OP-C Subjective Start: 12/17/22 11:56 Freq: Status: Active Protocol: Document 06/08/23 09:10 [facility] (Rec: 06/08/23 09:48 BS [id number]) OP-PT Subjective Patient Comments Patient Comments Pt was not compliant with HEP since last visit and did not walk either. Pt promise to do exercises this time. Pt has not had any pain in back or down leg. PT-OP-D Balance Start: 12/17/22 11:56 Freq: Status: Active Protocol: Document 12/21/22 11:53 [facility] (Rec: 12/21/22 13:39 [facility] [id number]) Balance Tests Single Limb Standing Single Limb- Right 6 sec a lot of deviation Single Limb- Left 4 sec a lot of deviation PT-OP-G Mobility & Gait Start: 12/17/22 11:56 Freq: Status: Active Protocol: Document 12/21/22 11:53 [facility] (Rec: 12/21/22 13:39 [facility] [id number]) OP Gait Assessment Comments Gait Comments amb w/ lat lean over LLE PT-OP-J Posture/Palpation/Skin Start: 12/17/22 11:56 Freq: Status: Active Protocol: Document 04/29/23 08:50 [facility] (Rec: 04/29/23 15:17 [facility] [id number]) Posture Evaluation [place] Postural Classification System Lumbar Protective Mechanism Left AP 0 Lumbar Protective Mechanism Right AP 1 Lumbar Protective Mechanism Left PA 1 Lumbar Protective Mechanism Right PA 0 PT-OP-K Range of Motion Start: 12/17/22 11:56 Freq: Status: Active Protocol: Document 12/21/22 11:53 [facility] (Rec: 12/21/22 13:39 [facility] [id number]) Lumbar Spine Range of Motion Lumbar Spine Active Percentage Flexion 50 Extension 60 Rotation Left 50 Rotation Right 50 Lateral Flexion Left 75 Lateral Flexion Right 75 Comments some discomfort w/ext PT-OP-M Strength Start: 12/17/22 11:56 Freq: Status: Active Protocol: Document 04/29/23 08:50 [facility] (Rec: 04/29/23 15:17 [facility] [id number]) Hip Strength Hip Manual Muscle Testing Right Flexion (L2) 5 Normal Extension (S1) 4+ Good+ Abduction 5 Normal Adduction 5 Normal External Rotation 5 Normal Internal Rotation 5 Normal Left Flexion (L2) 5 Normal Extension (S1) 4+ Good+ Abduction 4 Good Adduction 5 Normal External Rotation 5 Normal Internal Rotation 5 Normal Knee Strength Knee Manual Muscle Testing Right Flexion (S2) 5 Normal Extension (L3) 5 Normal Left Flexion (S2) 5 Normal Extension (L3) 5 Normal Ankle/Foot Strength Ankle and Foot Manual Muscle Testing Right Dorsiflexion (L4) 5 Normal Plantarflexion (S1) 5 Normal Left Dorsiflexion (L4) 5 Normal Plantarflexion (S1) 5 Normal Comments 20 heels raises B (slightly jun) PT-OP-Q Treatments Start: 12/17/22 11:56 Freq: Status: Active Protocol: Document 06/08/23 09:10 BS (Rec: 06/08/23 09:48 BS [id number]) Therapeutic Exercises Supine Exercises n glide Side bilateral Reps/Minutes 8ea Standing Exercises Hip flex Standing Exercise Name banded hip flex Side bilateral Resistance peach Equipment Used handrail Reps/Minutes x10ea Comments cues for tall posture paloff press Side bilateral Equipment Used orange band Reps/Minutes 15 side steps Side bilateral Equipment Used Green band Reps/Minutes 3x20ft ea hip hikes Side bilateral Reps/Minutes 15 Neuro Re-Education Treatment Balance Activities foam Comments 1. stair taps w/ HR PRN x15ea 2. Hip flex 3s hold x5 ea PT-OP-T Assessment and Plan Start: 12/17/22 11:56 Freq: Status: Active Protocol: Document 06/08/23 09:10 BS (Rec: 06/08/23 09:48 BS [id number]) Physical Therapy Assessment Goals strength Short Term Goal (STG) Pt will be indep w/HEP STG Duration achieved advancing as able Agricultural Produce Sorter Goal (LTG) Pt will score at least 3/5 on LPM and 5/5 on all LE MMT to show improved stabiltiy in order to dec instances of pain . 03/01-improved 03/31-improved 04/29-core strength limited LTG Duration 06/24 activities Group Home Goal (LTG) Pt will be able to go for walks w/o inc pain (at least 3 miles) 03/01-no pain w/1.5 miles but hasn't tried more-occ dull ache L 03/31-2 miles but some fatigue or ache in L 04/29-pt had flare up when walking in [place] LTG Duration 06/24 NAN Impairment 14/50 02/11/23- Short Term Goal (STG) Pt iwll improve score to no greater than 9/50 to show imrpoved functional ability. 02/11/23- STG Duration Achieved 02/11/23 Agricultural Produce Sorter Goal (LTG) Pt will improve score to no greater than 3/50 to show imrpoved functional ability. 02/11/23- LTG Duration Achieved 02/11/23 Assessment Summary Assessment Pt continues to requires lots of cueing throughout session. Pt has not been compliant with HEP and was educated on importance of continuing exercises at home to make progress. Pt has not had pain in a few weeks, however, has not walked since last flare up during trip [place]. Pt did well with balance and strength progressions but still has inc difficulty with SLS. Review HEP with pt at end of session with pt requiring max cueing for. 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
--- NOTE | 2023-06-16 12:18 | PT.OTN ---
Addendum entered and electronically signed by Rose Mary Olmos PT 06/17/23 08:46: PT direct supervision and direction to PT student. Original Note: Current Diagnoses Dorsalgia, unspecified (06/16/23) Difficulty in walking, not elsewhere classified (06/16/23) Abnormal posture (06/16/23) Weakness (06/16/23) Physical Therapy Treatment Note PT-OP-A Visit Information Start: 12/17/22 11:56 Freq: Status: Active Protocol: Document 06/16/23 09:07 BS (Rec: 06/16/23 09:56 BS [id number]) Out-Patient Physical Therapy Visit Information Visit Information Visit Type Treatment Note Visit Note 01/25 Visit Start Time 09:06 Visit Stop Time 09:48 Total Visit Minutes 42 Visit Number 25 Number of OCEAN EXPORT COORDINATOR Visits 0 PT-OP-B Current Condition Start: 12/17/22 11:56 Freq: Status: Active Protocol: Document 12/21/22 11:53 [facility] (Rec: 12/21/22 13:39 [facility] [id number]) Current Condition History of Current Condition Onset Date 2 months ago Current Complaints LBP and L leg pain History of Current Condition Pt reports he has not had any back issues or concerns ever, but around his 72th bday. He doesn't have recolection of anything that caused it. tylenol didn't help and went to ER for tordal and mm relaxors and afew days later, it didn't better. Xray the 2nd time in ER and had oxycodone and neurotin and gabapentin and baclofen and that helped. Initally the pain was so bad, he was crawling to the bathroom and could barely get up. Pt saw Dr. Ahumada and he got an injection and he has been signifcantly better after this whre it is onlyl ow level pain. He saw a specialist in [place]. Pain started in [place] and pretty soon after it was burning and painful in post thigh & lat bush and into dorsum of foot. Pt is hoping to go to [place] in the fall w/his . In the last couple weeks, he has seen Dr. Casiano for acupuncture. He has been off the oxy for a month. He has been off all meds for about 1- 2 weeks. he feels tired a little. 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 Pt is using a lumbar cusion behind his back . Pt reports if he stands any period of time, he starts to feel the pain as it just starts to ache a little. Pt reports his typical lifestyle is pretty sedentary. He has not riden his bike since this either. Prior Treatments and Tests Xray: IMPRESSION: Grade 1 isthmic spondylolisthesis at L5-S1, stable MRI lumbar: IMPRESSION: 1. At L5-S1, there are bilateral L5 pars defects, mild anterolisthesis of L5 on S1, and moderate to severe left foraminal narrowing, with left foraminal L5 nerve root impingement. 2. Mild multilevel facet arthropathy. Injection on 11/12/22 Treatment Goals Patient/Caregiver Goals be able to walk in [place] in afew months PT-OP-C Subjective Start: 12/17/22 11:56 Freq: Status: Active Protocol: Document 06/16/23 09:07 BS (Rec: 06/16/23 09:56 [id number]) OP-PT Subjective Patient Comments Patient Comments Pt reported walking 1 mile 2x since last visit and felt good with it, it was pretty flat. Pt also chose to not get the steroid shot, still is taking gabapentin. PT-OP-D Balance Start: 12/17/22 11:56 Freq: Status: Active Protocol: Document 12/21/22 11:53 [facility] (Rec: 12/21/22 13:39 [facility] [id number]) Balance Tests Single Limb Standing Single Limb- Right 6 sec a lot of deviation Single Limb- Left 4 sec a lot of deviation PT-OP-G Mobility & Gait Start: 12/17/22 11:56 Freq: Status: Active Protocol: Document 12/21/22 11:53 [facility] (Rec: 12/21/22 13:39 [facility] [id number]) OP Gait Assessment Comments Gait Comments amb w/ lat lean over LLE PT-OP-J Posture/Palpation/Skin Start: 12/17/22 11:56 Freq: Status: Active Protocol: Document 04/29/23 08:50 [facility] (Rec: 04/29/23 15:17 [facility] [id number]) Posture Evaluation [place] Postural Classification System Lumbar Protective Mechanism Left AP 0 Lumbar Protective Mechanism Right AP 1 Lumbar Protective Mechanism Left PA 1 Lumbar Protective Mechanism Right PA 0 PT-OP-K Range of Motion Start: 12/17/22 11:56 Freq: Status: Active Protocol: Document 12/21/22 11:53 [facility] (Rec: 12/21/22 13:39 [facility] [id number]) Lumbar Spine Range of Motion Lumbar Spine Active Percentage Flexion 50 Extension 60 Rotation Left 50 Rotation Right 50 Lateral Flexion Left 75 Lateral Flexion Right 75 Comments some discomfort w/ext PT-OP-M Strength Start: 12/17/22 11:56 Freq: Status: Active Protocol: Document 04/29/23 08:50 [facility] (Rec: 04/29/23 15:17 [facility] [id number]) Hip Strength Hip Manual Muscle Testing Right Flexion (L2) 5 Normal Extension (S1) 4+ Good+ Abduction 5 Normal Adduction 5 Normal External Rotation 5 Normal Internal Rotation 5 Normal Left Flexion (L2) 5 Normal Extension (S1) 4+ Good+ Abduction 4 Good Adduction 5 Normal External Rotation 5 Normal Internal Rotation 5 Normal Knee Strength Knee Manual Muscle Testing Right Flexion (S2) 5 Normal Extension (L3) 5 Normal Left Flexion (S2) 5 Normal Extension (L3) 5 Normal Ankle/Foot Strength Ankle and Foot Manual Muscle Testing Right Dorsiflexion (L4) 5 Normal Plantarflexion (S1) 5 Normal Left Dorsiflexion (L4) 5 Normal Plantarflexion (S1) 5 Normal Comments 20 heels raises B (slightly jun) PT-OP-Q Treatments Start: 12/17/22 11:56 Freq: Status: Active Protocol: Document 06/16/23 09:07 BS (Rec: 06/16/23 09:56 BS [id number]) Therapeutic Exercises Standing Exercises Squat Standing Exercise Name wall squat isometrics Side bilateral Reps/Minutes 4x30s Comments cues for tolerable depth and leaning fwd to come back up paloff press Side bilateral Equipment Used orange band Reps/Minutes x10 ea side steps Side bilateral Equipment Used Green band Reps/Minutes x50ft ea step down Standing Exercise Name lat Side bilateral Equipment Used 6 in w/rail Reps/Minutes 15 Comments cues buttocks back hip hikes Side bilateral Reps/Minutes x10ea Neuro Re-Education Treatment Balance Activities SLS Reps/Duration 9 min Comments 1. SLS w/ cone taps PT-OP-T Assessment and Plan Start: 12/17/22 11:56 Freq: Status: Active Protocol: Document 06/16/23 09:07 BS (Rec: 06/16/23 09:56 BS [id number]) Physical Therapy Assessment Goals strength Short Term Goal (STG) Pt will be indep w/HEP STG Duration achieved advancing as able Community Health Advocate Goal (LTG) Pt will score at least 3/5 on LPM and 5/5 on all LE MMT to show improved stabiltiy in order to dec instances of pain . 03/01-improved 03/31-improved 04/29-core strength limited LTG Duration 06/24 activities Community Health Advocate Goal (LTG) Pt will be able to go for walks w/o inc pain (at least 3 miles) 03/01-no pain w/1.5 miles but hasn't tried more-occ dull ache L 03/31-2 miles but some fatigue or ache in L 04/29-pt had flare up when walking in [place] LTG Duration 06/24 NAN Impairment 14/50 02/11/23- Short Term Goal (STG) Pt iwll improve score to no greater than 9/50 to show imrpoved functional ability. 02/11/23- STG Duration Achieved 02/11/23 Community Health Advocate Goal (LTG) Pt will improve score to no greater than 3/50 to show imrpoved functional ability. 02/11/23- LTG Duration Achieved 02/11/23 Assessment Summary Assessment Pt still not compliant with HEP so modified down to just lateral step down & walking program in order to adjust to something the pt feels is managable to complete. Pt continues to require constant cueing during therex and is hyperverbal throughout treatment often causing form to waver. Pt progressed balance with SLS and cone taps today which pt had inc difficulty w/ dynamic SLS L>R. Physical Therapy Plan Frequency and Duration Frequency of Treatment 1x/wk Duration of treatment (weeks) 8 Plan of Care Start Date 04/29/23 Plan of Care End Date 06/24/23 Next Visit Focus/Plan Next Note Type Discharge Summary Next Visit Plan Solidify managable HEP & walking program, reassess strength.
--- NOTE | 2023-06-22 17:10 | PT.OTN ---
Addendum entered and electronically signed by Rose Mary Olmos PT 06/22/23 17:48: PT direct supervision and direction to PT student. Original Note: Current Diagnoses Dorsalgia, unspecified (06/22/23) Difficulty in walking, not elsewhere classified (06/22/23) Abnormal posture (06/22/23) Weakness (06/22/23) Physical Therapy Treatment Note PT-OP-A Visit Information Start: 12/17/22 11:56 Freq: Status: Active Protocol: Document 06/22/23 08:20 BS (Rec: 06/22/23 12:28 BS [id number]) Out-Patient Physical Therapy Visit Information Visit Information Visit Type Discharge Summary Visit Note 02/25 Visit Start Time 08:20 Visit Stop Time 09:05 Total Visit Minutes 45 Visit Number 26 Number of SWAGE TENDER Visits 0 PT-OP-B Current Condition Start: 12/17/22 11:56 Freq: Status: Active Protocol: Document 12/21/22 11:53 [facility] (Rec: 12/21/22 13:39 [facility] [id number]) Current Condition History of Current Condition Onset Date 2 months ago Current Complaints LBP and L leg pain History of Current Condition Pt reports he has not had any back issues or concerns ever, but around his 72th bday. He doesn't have recolection of anything that caused it. tylenol didn't help and went to ER for tordal and mm relaxors and afew days later, it didn't better. Xray the 2nd time in ER and had oxycodone and neurotin and gabapentin and baclofen and that helped. Initally the pain was so bad, he was crawling to the bathroom and could barely get up. Pt saw Dr. Ahumada and he got an injection and he has been signifcantly better after this whre it is onlyl ow level pain. He saw a specialist in [place]. Pain started in LB and pretty soon after it was burning and painful in post thigh & lat bush and into dorsum of foot. Pt is hoping to go to [place] in the fall w/his . In the last couple weeks, he has seen Dr. Casiano for acupuncture. He has been off the oxy for a month. He has been off all meds for about 1- 2 weeks. he feels tired a little. 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 Pt is using a lumbar cusion behind his back . Pt reports if he stands any period of time, he starts to feel the pain as it just starts to ache a little. Pt reports his typical lifestyle is pretty sedentary. He has not riden his bike since this either. Prior Treatments and Tests Xray: IMPRESSION: Grade 1 isthmic spondylolisthesis at L5-S1, stable MRI lumbar: IMPRESSION: 1. At L5-S1, there are bilateral L5 pars defects, mild anterolisthesis of L5 on S1, and moderate to severe left foraminal narrowing, with left foraminal L5 nerve root impingement. 2. Mild multilevel facet arthropathy. Injection on 11/12/22 Treatment Goals Patient/Caregiver Goals be able to walk in [place] in afew months PT-OP-C Subjective Start: 12/17/22 11:56 Freq: Status: Active Protocol: Document 06/22/23 08:20 BS (Rec: 06/22/23 12:28 BS [id number]) OP-PT Subjective Patient Comments Patient Comments Pt did try some of his HEP but not all, Pt had slight twinge in back when changing litter box but it went away fairly quick. PT-OP-D Balance Start: 12/17/22 11:56 Freq: Status: Active Protocol: Document 12/21/22 11:53 [facility] (Rec: 12/21/22 13:39 [facility] [id number]) Balance Tests Single Limb Standing Single Limb- Right 6 sec a lot of deviation Single Limb- Left 4 sec a lot of deviation PT-OP-G Mobility & Gait Start: 12/17/22 11:56 Freq: Status: Active Protocol: Document 12/21/22 11:53 [facility] (Rec: 12/21/22 13:39 [facility] [id number]) OP Gait Assessment Comments Gait Comments amb w/ lat lean over LLE PT-OP-J Posture/Palpation/Skin Start: 12/17/22 11:56 Freq: Status: Active Protocol: Document 06/22/23 08:20 BS (Rec: 06/22/23 12:28 BS [id number]) Posture Evaluation [place] Postural Classification System Lumbar Protective Mechanism Left AP 1 Lumbar Protective Mechanism Right AP 2 Lumbar Protective Mechanism Left PA 2 Lumbar Protective Mechanism Right PA 2 PT-OP-K Range of Motion Start: 12/17/22 11:56 Freq: Status: Active Protocol: Document 12/21/22 11:53 LR (Rec: 12/21/22 13:39 [facility] [id number]) Lumbar Spine Range of Motion Lumbar Spine Active Percentage Flexion 50 Extension 60 Rotation Left 50 Rotation Right 50 Lateral Flexion Left 75 Lateral Flexion Right 75 Comments some discomfort w/ext PT-OP-M Strength Start: 12/17/22 11:56 Freq: Status: Active Protocol: Document 06/22/23 08:20 BS (Rec: 06/22/23 12:28 BS [id number]) Hip Strength Hip Manual Muscle Testing Right Flexion (L2) 5 Normal Extension (S1) 5 Normal Abduction 5 Normal Adduction 5 Normal External Rotation 5 Normal Internal Rotation 5 Normal Left Flexion (L2) 5 Normal Extension (S1) 5 Normal Abduction 5 Normal Adduction 5 Normal External Rotation 5 Normal Internal Rotation 5 Normal Knee Strength Knee Manual Muscle Testing Right Flexion (S2) 5 Normal Extension (L3) 5 Normal Left Flexion (S2) 5 Normal Extension (L3) 5 Normal Ankle/Foot Strength Ankle and Foot Manual Muscle Testing Right Dorsiflexion (L4) 5 Normal Plantarflexion (S1) 5 Normal Left Dorsiflexion (L4) 5 Normal Plantarflexion (S1) 5 Normal Comments 20 heels raises B (jun) PT-OP-Q Treatments Start: 12/17/22 11:56 Freq: Status: Active Protocol: Document 06/22/23 08:20 BS (Rec: 06/22/23 12:28 BS [id number]) Therapeutic Exercises Supine Exercises n glide Side bilateral Reps/Minutes 10ea isometric Supine Exercise Name 4-way Core series Side bilateral Reps/Minutes x30s ea Comments mod cues for hand positioning Prone Exercises hip ext Prone Exercise Name iso holds Side bilateral Comments w/ resistance Standing Exercises core Standing Exercise Name iso core Comments against AP force & PA force paloff press Side bilateral Equipment Used orange band Reps/Minutes x10 ea Comments cues for slight knee bend & breathing throughout step down Standing Exercise Name lat Side bilateral Equipment Used 6 in w/rail Reps/Minutes 10 Comments cues buttocks back Self-Care/Home Management Treatment Education Other Education 8min: edu given about monitoring symptoms moving forward and getting referral to PT is wanting to come back. edu about importance of compliance to HEP and small inc in walking each week to not overload. edu about contacting dr regarding questions about gabapentin and medications. PT-OP-T Assessment and Plan Start: 12/17/22 11:56 Freq: Status: Active Protocol: Document 06/22/23 08:20 BS (Rec: 06/22/23 12:28 BS [id number]) Physical Therapy Assessment Goals strength Short Term Goal (STG) Pt will be indep w/HEP STG Duration achieved advancing as able Claims Adjuster Goal (LTG) Pt will score at least 3/5 on LPM and 5/5 on all LE MMT to show improved stabiltiy in order to dec instances of pain . 03/01-improved 03/31-improved 04/29-core strength limited 06/22- core strength improved but still limited LTG Duration 06/24 activities Usp Goal (LTG) Pt will be able to go for walks w/o inc pain (at least 3 miles) 03/01-no pain w/1.5 miles but hasn't tried more-occ dull ache L 03/31-2 miles but some fatigue or ache in L 04/29-pt had flare up when walking in [place] 06/22- pt got up to 1 mile but hasnt tried more since flare up. LTG Duration 06/24 NAN Impairment 14/50 02/11/23- Short Term Goal (STG) Pt iwll improve score to no greater than 9/50 to show imrpoved functional ability. 02/11/23- STG Duration Achieved 02/11/23 Usp Goal (LTG) Pt will improve score to no greater than 3/50 to show imrpoved functional ability. 02/11/23- LTG Duration Achieved 02/11/23 Assessment Summary Assessment Pt seen for PT discharge visit today. Pt has met all goals, except walking goal d/t pt not attempting since trip to [place] 2 months ago and . Pt has improve BLE strength to 5/ 5 however is still limited in core strength and was given HEP to address. Pt has been noncompliant with HEP and was encouraged to complete HEP after d/c to continue to build strength and inc walking. Session focused on HEP review and ensuring proper form. Pt was able to complete all w/ min cueing and was provided handout with pictures and pt specific cues. Physical Therapy Plan Discharge Physical Therapy Discharge Reasons [place] in Progress Discharge Comments Pt no longer has pain during daily life and has met all goals except walking goal d/t not attempting and core strength which was address w/ HEP.
== END 2023-06-28 14:13 | disposition home or self-care (01) ==
LOC: PHYS 08:15
PROVIDERS: Absent Provider Family Medicine; Family Provider Family Medicine; PCP Family Medicine; Referring Provider Family Medicine; Visit Provider Family Medicine
DX: M54.9 Dorsalgia, unspecified (principal); R53.1 Weakness; R29.3 Abnormal posture; R26.2 Difficulty in walking, not elsewhere classified
CPT/HCPCS: 97110; 97112; 97116; 97140; 97162; 97530; 97535; 97750

== ENCOUNTER → 2024-02-17 07:44 | Outpatient (CLI) | payer MEDICARE, OTHER, SELFPAY ==
[2024-02-17 09:45] LABS: Add Manual Diff / Slide Review NO; Basophils Absolute Auto 0 /uL (0-100); Basophils Percent Auto 0.7 % (0-2); Eosinophils Absolute Auto 200 /uL (0-450); Eosinophils Percent Auto 2.9 % (2-4); Hematocrit 43.8 % (41-53); Hemoglobin 14.7 g/dL (13.5-17.5); Lymphocytes Absolute Auto 1900 /uL (1100-4500); Lymphocytes Percent Auto 26.5 % (25-40); Mean Corpuscular HGB Conc 33.6 % (30-36); Mean Corpuscular Hemoglobin 31.5 PG (26-34); Mean Corpuscular Volume 93.6 fL (80-100); Monocytes Absolute Auto 500 /uL (0-900); Monocytes Percent Auto 6.5 % (3-14); Neutrophils Absolute Auto 4600 /uL (1500-7000); Neutrophils Percent Auto 63.4 % (50-75); Platelet Count 130 X10^3/uL (150-400); Red Blood Cell Count 4.68 X10^6/uL (4.5-5.9); Red Cell Distribution Width 12.9 % (11.6-14.8); White Blood Cell Count 7.2 X10^3/uL (4.5-11.0)
[2024-02-17 10:00] LABS: Creatinine Urine Random 75.68 mg/dL
[2024-02-17 10:07] LABS: Microalbumin Urine Random 0.8 mg/dL (0-1.6)
[2024-02-17 10:23] LABS: Alanine Aminotransferase 29 IU/L (<50); Albumin 4.2 g/dL (3.5-5.0); Albumin Globulin Ratio 2.1 (1.0-2.8); Alkaline Phosphatase 61 U/L (38-126); Aspartate Aminotransferase 31 IU/L (17-59); BUN Creatinine Ratio 17.2 (6-22); Bilirubin Total 0.4 mg/dL (0.2-1.3); Blood Urea Nitrogen 17 mg/dL (9-20); Calcium 9.6 mg/dL (8.4-10.2); Carbon Dioxide 28 mmol/L (22-32); Chloride 104 mmol/L (98-107); Cholesterol 114 mg/dL (140-199); Estimated Glomerular Filt Rate > 60 mL/min (>60); Glucose 96 mg/dL (80-110); HDL Cholesterol 47 mg/dL (40-60); HEMOLYSIS < 15 (0-50); LDL Cholesterol Calculated 43 mg/dL (<100); Potassium 4.2 mmol/L (3.4-5.1); Sodium 139 mmol/L (137-145); Total Protein 6.2 g/dL (6.3-8.2); Triglycerides 121 mg/dL (35-150)
[2024-02-17 10:49] LABS: Prostate Specific Antigen Scrn 1.76 ng/mL (0.1-4.0); TSH w/ Reflex to FT4 2.71 uIU/mL (0.47-4.68)
[2024-02-19 04:36] LABS: Apolipoprotein B 36 mg/dL (<90)
== END ==
PROVIDERS: Family Provider Family Medicine; PCP Family Medicine; Referring Provider Family Medicine; Visit Provider Family Medicine
DX: R73.9 Hyperglycemia, unspecified (principal); R79.89 Other specified abnormal findings of blood chemistry; Z12.5 Encounter for screening for malignant neoplasm of prostate; F41.9 Anxiety disorder, unspecified; Z00.00 Encounter for general adult medical examination without abnormal findings; F90.9 Attention-deficit hyperactivity disorder, unspecified type
CPT/HCPCS: 36415; 80053; 80061; 82043; 82172; 82570; 84443; 85025; G0103

== ENCOUNTER 2024-05-02 07:51 | Day surgery (SDC) | payer MEDICARE, OTHER, SELFPAY ==
[2024-05-02 08:12] VITALS: BP 133/85; PULSE 88; RESP 16; TEMP 36.2; O2SAT 98
--- NOTE | 2024-05-02 08:29 | P.HP_ITS ---
History of Present Illness History of Present Illness Date Patient Seen: 05/02/24 Time Patient Seen: 08:30 Chief complaint: SDC Narrative: Colon cancer screening. No symptoms, no family history for colon cancer screening. 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 [facility] Medical History Lumbar radiculopathy Compression fracture Spondylolysis of lumbar region Foraminal stenosis of lumbar region Lumbar nerve root impingement Central sleep apnea Hyperglycemia Hearing loss associated with syndrome of both ears Anxiety Headache Lyme disease (~1994) Tinnitus (~1999) BPH (benign prostatic hyperplasia) (~1999) GERD (gastroesophageal reflux disease) (~1994) Surgical History Anesthesia Inguinal hernia (~1994) History of tonsillectomy Family History Mother Age: 99 Dementia Grandmother Glaucoma Father No problems noted. Grandmother No problems noted. Sister No problems noted. Family/Other No problems noted. Social History household members: spouse Smoking Status: Never smoker Meds Home Medications and Allergies Home Medications Medication Instructions Recorded Confirmed Type methylphenidate HCl 20 mg 20 mg PO BID 11/02/22 05/02/24 History tablet,extended release propranolol 10 mg tablet 10 mg PO PRN Anxiety 12/21/23 02/14/24 History famotidine 10 mg tablet 10 mg PO BEDTIME #90 tabs 02/14/24 05/02/24 Rx sodium,potassium,mag sulfates 17.5 See Rx Instructions PO .COMPLEX 03/23/24 Rx gram-3.13 gram-1.6 gram oral soln #354 mL (Suprep Bowel Prep Kit) omeprazole 20 mg capsule,delayed 20 mg PO DAILY #90 caps 04/26/24 05/02/24 Rx release Allergies Allergy/AdvReac Type Severity Reaction Status Date / Time codeine [CODEINE] AdvReac Unknown groggy Verified 05/02/24 08:11 Review of Systems Review of Systems ROS: Yes All systems reviewed with the patient and are negative except as otherwise documented Exam Vital Signs (past 8 hours): - 05/02/24 08:12 Temperature 97.2 F L Pulse Rate 88 Respiratory Rate 16 Blood Pressure 133/85 Pulse Oximetry 98 Oxygen Delivery Method Room Air Oxygen Delivery Method Room Air Const General: cooperative, healthy appearing and comfortable Nutritional Appearance: average body habitus HENMT Head: normocephalic and atraumatic Eyes Periorbital: periorbital findings normal Sclera: sclerae normal Neck Neck: trachea midline Resp Effort & Inspection: normal respiratory effort and able to speak in complete sentences Cardio Rate: regular rate Rhythm: regular rhythm GI Palpation: soft and No tender Skin General: atrophy Neuro General: patient alert, patient awake and patient oriented x3 Cognition: normal cognition Psych Mental Status: mental status grossly normal Affect: normal affect Judgment: judgment good Assessment & Plan Assessment & Plan narrative: colon cancer screening using colonoscopy w anesthesia Time-Based Coding :: [TOTAL MINUTES] spent with patient and on the chart (including review of chart, obtaining history, exam, reviewing outside data, placing orders, documenting exam and treatment plan, and counseling patient) on [DATE].
--- NOTE | 2024-05-02 08:58 | PM.OP.COLON ---
Operative Date/Time/Diagnoses Date of procedure: 05/02/24 Time of procedure: 08:58 Pre-op diagnosis: Colon cancer screening Post-op diagnosis: same Procedure & Clinicians Study performed: Colonoscopy with anesthesia Same procedure as scheduled: Yes Indications: Colon cancer screening Surgeon: Sandy Ascencio Procedure Notes Procedure in detail: Preop diagnosis: Colon cancer screening Postop diagnosis: Same Operative procedure: Colonoscopy with anesthesia Surgeon: Shilpa Ascencio MD Findings: Normal colonoscopy. No diverticulosis no polyps. Procedure: Patient placed in lateral position. Rectal exam performed showing normal tone no masses. Colonoscope inserted into the rectum and advanced to ileocecal valve with minimal difficulty. Insufflation extraction scope and the above findings. Retroflex was included in the rectum. Impression: No polyps. No diverticulosis. Plan: Repeat colonoscopy in 10 years at which time patient will be 83 and can opt out if not experiencing symptoms. Specimen(s): none sent Complications: none Post-procedure Recommendations: Colonoscopy in 10 years Follow up: as needed Disposition: PACU
[2024-05-02 09:00] VITALS: BP 110/66; PULSE 71; RESP 15; TEMP 37.3; O2SAT 95
[2024-05-02 09:05] VITALS: BP 119/81; PULSE 86; RESP 16; TEMP 37.2; O2SAT 97
[2024-05-02 09:11] VITALS: BP 124/85; PULSE 77; RESP 20; TEMP 37.2; O2SAT 98
== END 2024-05-02 09:20 | disposition home or self-care (01) ==
PROVIDERS: Family Provider Family Medicine; PCP Family Medicine; Referring Provider Surgery; Visit Provider Surgery
PROC: 0DJD8ZZ Inspection of Lower Intestinal Tract, Via Natural or Artificial Opening Endoscopic (ICD-10-PCS; CPT 45378; principal; 2024-05-02 08:45)
DX: Z12.11 Encounter for screening for malignant neoplasm of colon (principal)
CPT/HCPCS: G0121; J2704

== ENCOUNTER → 2024-05-06 11:30 | Outpatient (CLI) | payer MEDICARE, OTHER, SELFPAY ==
[2024-05-06 12:04] LABS: Add Manual Diff / Slide Review NO; Basophils Absolute Auto 0 /uL (0-100); Basophils Percent Auto 0.6 % (0-2); Eosinophils Absolute Auto 100 /uL (0-450); Eosinophils Percent Auto 1.5 % (2-4); Hematocrit 43.9 % (41-53); Hemoglobin 15.2 g/dL (13.5-17.5); Lymphocytes Absolute Auto 1600 /uL (1100-4500); Lymphocytes Percent Auto 28.3 % (25-40); Mean Corpuscular HGB Conc 34.6 % (30-36); Mean Corpuscular Volume 92.6 fL (80-100); Monocytes Absolute Auto 400 /uL (0-900); Monocytes Percent Auto 6.7 % (3-14); Neutrophils Absolute Auto 3600 /uL (1500-7000); Neutrophils Percent Auto 62.9 % (50-75); Platelet Count 141 X10^3/uL (150-400); Red Blood Cell Count 4.75 X10^6/uL (4.5-5.9); Red Cell Distribution Width 13.2 % (11.6-14.8); White Blood Cell Count 5.8 X10^3/uL (4.5-11.0)
== END ==
LOC: LAB 11:31
PROVIDERS: Family Provider Family Medicine; PCP Family Medicine; Referring Provider Family Medicine; Visit Provider Family Medicine
DX: D69.6 Thrombocytopenia, unspecified (principal)
CPT/HCPCS: 36415; 85025

== ENCOUNTER → 2025-02-22 10:03 | Outpatient (CLI) | payer MEDICARE, OTHER, SELFPAY ==
[2025-02-22 11:05] LABS: Add Manual Diff / Slide Review NO; Hematocrit 44.7 % (41-53); Hemoglobin 15.7 g/dL (13.5-17.5); Lymphocytes Absolute Auto 1700 /uL (1100-4500); Mean Corpuscular HGB Conc 35.1 % (30-36); Mean Corpuscular Hemoglobin 32.3 PG (26-34); Mean Corpuscular Volume 91.9 fL (80-100); Platelet Count 155 X10^3/uL (150-400)
[2025-02-22 11:23] LABS: Alanine Aminotransferase 23 IU/L (<50); Albumin 4.5 g/dL (3.5-5.0); Albumin Globulin Ratio 1.8 (1.0-2.8); Alkaline Phosphatase 56 U/L (38-126); Blood Urea Nitrogen 18 mg/dL (9-20); Calcium 9.5 mg/dL (8.4-10.2); Carbon Dioxide 27 mmol/L (22-32); Chloride 102 mmol/L (98-107); Cholesterol 100 mg/dL (140-199); Estimated Glomerular Filt Rate > 60 mL/min (>60); Globulin 2.5 g/dL (1.7-4.1); Glucose 104 mg/dL (70-99); HDL Cholesterol 41 mg/dL (40-60); HEMOLYSIS 19 (0-50); Potassium 4.1 mmol/L (3.4-5.1); Sodium 139 mmol/L (137-145); Total Protein 7.0 g/dL (6.3-8.2); Triglycerides 89 mg/dL (35-150)
[2025-02-22 11:28] LABS: Microalbumi Creatinin Ratio Ur 9.0 ug/mg CR (<30)
[2025-02-22 11:52] LABS: TSH w/ Reflex to FT4 1.84 uIU/mL (0.47-4.68)
== END ==
PROVIDERS: Family Provider Family Medicine; PCP Family Medicine; Referring Provider Family Medicine; Visit Provider Family Medicine
DX: Z00.00 Encounter for general adult medical examination without abnormal findings (principal); R73.9 Hyperglycemia, unspecified; R79.89 Other specified abnormal findings of blood chemistry; Z12.5 Encounter for screening for malignant neoplasm of prostate; F41.9 Anxiety disorder, unspecified; F90.9 Attention-deficit hyperactivity disorder, unspecified type; H91.93 Unspecified hearing loss, bilateral
CPT/HCPCS: 36415; 80053; 80061; 82043; 82570; 84443; 85025; G0103